=== PATIENT | female | born 1990 | race Caucasian/White ===

== ENCOUNTER 2019-12-11 19:34 | Emergency (ER) | payer OTHER ==
--- OUTSIDE RECORDS SUMMARY | 2019-12-11 19:36 | XMS REPORT ---
:1990 [facility] [address] [place] [address] Dr. Grant [address] [place] [id number] Care Team Providers Name Role Phone BHASKARROSAVALERIO HarperMADONNA Unavailable Unavailable Problems This patient has no known problems. Allergies, Adverse Reactions, Alerts This patient has no known allergies or adverse reactions. Medications This patient has no known medications. Results Test Description Test Time Test Comments Text Results Atomic Results Result Comments BLOOD CULTURE, [facility] 2017-01-21 19:31:00 Test Item Value Reference Range Comments CULTURE (BEAKER) (test [id number]) No acid-fast bacilli isolated in 42 days [facility], [facility] [id number] 19:31:00 Test Item Value Reference Range Comments CULTURE (BEAKER) (test No acid-fast bacilli isolated [id number]) in 42 days
--- NOTE | 2019-12-11 20:16 | ER ---
Nurse's Notes [facility] Name: María Sosa Age: 29 yrs Sex: Female : 1990 Arrival Date: 12/11/2019 Time: 19:37 Bed 19 Private MD: Diagnosis: Periapical abscess without sinus Presentation: 12/11 19:45 Presenting complaint: Patient states: left lower jaw swollen for 2 days. Pain started dm5 today. Pt states history of teeth abscesses. Transition of care: patient was not received from another setting of care. Onset of symptoms was December 09, 2019. Risk Assessment: Do you want to hurt yourself or someone else? Patient reports no desire to harm self or others. Initial Sepsis Screen: Does the patient meet any 2 criteria? HR > 90 bpm. No. Patient's initial sepsis screen is negative. Does the patient have a suspected source of infection? Yes: Other: tooth. Care prior to arrival: None. 19:45 Method Of Arrival: Ambulatory dm5 19:45 Acuity: KAYLAH 4 dm5 Triage Assessment: 20:08 EENT: Reports Tooathache. 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 - Social history:: Smoking status: Patient reports the use of cigarette tobacco products. - Ebola Screening: : Patient negative for fever greater than or equal to 101.5 degrees Fahrenheit, and additional compatible Ebola Virus Disease symptoms Patient denies exposure to infectious person. Screenin:07 Abuse screen: Denies threats or abuse. Denies injuries from another. Nutritional screening: No deficits noted. Tuberculosis screening: No symptoms or risk factors identified. Fall Risk None identified. Assessment: 20:02 General: Appears in no apparent distress. Behavior is calm, cooperative, appropriate for age. Pain: Complains of pain in Tooth abscess. Neuro: Level of Consciousness is awake, alert, obeys commands, Oriented to person, place, time, situation, Appropriate for age. Cardiovascular: Capillary refill < 3 seconds. Respiratory: Airway is patent Respiratory effort is even, unlabored, Respiratory pattern is regular, symmetrical. GI: Abdomen is flat, non-distended. : No signs and/or symptoms were reported regarding the genitourinary system. EENT: Poor dentition noted. Derm: Skin is intact, is healthy with good turgor, Skin is pink, warm \T\ dry. normal. Musculoskeletal: Circulation, motion, and sensation intact. Vital Signs: 19:57 BP 118 / 75; Pulse 93; Resp 18; Temp 99.4; Pulse Ox 97% on R/A; Weight 43.09 kg; Height [facility] 5 ft. 4 in. (162.56 cm); 19:57 Body Mass Index 16.31 (43.09 kg, 162.56 cm) [facility] ED Course: 19:37 Patient arrived in ED. es 19:41 Enrrique Alfredo NP is PHCP. pm1 19:41 Sabino Bronson MD is Attending Physician. pm1 19:53 Triage completed. [facility] 19:57 Arm band placed on Patient placed in an exam room. [facility] 20:00 Trav Moffett is Primary Nurse. 20:08 Patient has correct armband on for positive identification. Bed in low position. Call light in reach. Side rails up X 1. Pulse ox on. NIBP on. 20:42 No provider procedures requiring assistance completed. Patient did not have IV access during this emergency room visit. Administered Medications: 20:31 Drug: Clindamycin 600 mg Route: IM; Site: right gluteus; 20:41 Follow up: Response: No adverse reaction 20:31 Drug: Tylenol #3 (300 mg-30 mg) 2 tabs Route: PO; 20:41 Follow up: Response: No adverse reaction; Pain is decreased; RASS: Alert and Calm (0) Outcome: 20:16 Discharge ordered by . pm1 20:42 Discharged to home ambulatory, with friend. 20:42 Condition: stable 20:42 Discharge instructions given to patient, friend, Instructed on discharge instructions, follow up and referral plans. no drinking with medication, no driving heavy equipment, medication usage, POC Demonstrated understanding of instructions, follow-up care, medications, POC Prescriptions given X 2. 20:42 Patient left the ED. Signatures: Valerie Frances, RN RN dm5 Pauline Phillips Patrick, SWEEPER OPERATOR HIGHWAYS SWEEPER OPERATOR HIGHWAYS pm1 Trav Moffett wh
--- NOTE | 2019-12-11 20:16 | EDPHYS ---
Physician Documentation [facility] Name: María Sosa Age: 29 yrs Sex: Female : 1990 Arrival Date: 12/11/2019 Time: 19:37 Bed 19 Private MD: ED Physician Sabino Bronson HPI: 12/11 20:13 This 29 yrs old Female presents to ER via Ambulatory with complaints of pm1 Toothache. 20:13 The patient presents with swelling. The problem is located in the left side of jaw. pm1 Onset: The symptoms/episode began/occurred today. Duration: The symptoms are continuous. Modifying factors: The symptoms are alleviated by nothing, the symptoms are aggravated by nothing. Associated signs and symptoms: Pertinent negatives: chills, dysphagia, fever, inability to eat, vomiting. Severity of symptoms: in the emergency department the symptoms are actually worse. The patient has experienced similar episodes in the past, multiple times. The patient has not recently seen a physician. 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 - Social history:: Smoking status: Patient reports the use of cigarette tobacco products. - Ebola Screening: : Patient negative for fever greater than or equal to 101.5 degrees Fahrenheit, and additional compatible Ebola Virus Disease symptoms Patient denies exposure to infectious person. ROS: 20:13 Constitutional: Negative for fever, chills, and weight loss, Eyes: Negative for injury, pm1 pain, redness, and discharge, Neck: Negative for injury, pain, and swelling, Cardiovascular: Negative for chest pain, palpitations, and edema. 20:13 Respiratory: Negative for shortness of breath, cough, wheezing, and pleuritic chest pain, Abdomen/GI: Negative for abdominal pain, nausea, vomiting, diarrhea, and constipation, Back: Negative for injury and pain, Skin: Negative for injury, rash, and discoloration, Neuro: Negative for headache, weakness, numbness, tingling, and seizure. 20:13 ENT: Positive for dental pain, Negative for drainage from ear(s), ear pain, sore throat, difficulty swallowing, difficulty handling secretions, hoarseness. 20:13 All other systems are negative. Exam: 20:13 Constitutional: This is a well developed, well nourished patient who is awake, alert, pm1 and in no acute distress. Head/Face: Normocephalic, atraumatic. 20:13 Neck: Trachea midline, no thyromegaly or masses palpated, and no cervical lymphadenopathy. Supple, full range of motion without nuchal rigidity, or vertebral point tenderness. No Meningismus. Chest/axilla: Normal chest wall appearance and motion. Nontender with no deformity. No lesions are appreciated. Cardiovascular: Regular rate and rhythm with a normal S1 and S2. No gallops, murmurs, or rubs. Normal PMI, no JVD. No pulse deficits. Respiratory: Lungs have equal breath sounds bilaterally, clear to auscultation and percussion. No rales, rhonchi or wheezes noted. No increased work of breathing, no retractions or nasal flaring. Back: No spinal tenderness. No costovertebral tenderness. Full range of motion. Skin: Warm, dry with normal turgor. Normal color with no rashes, no lesions, and no evidence of cellulitis. MS/ Extremity: Pulses equal, no cyanosis. Neurovascular intact. Full, normal range of motion. 20:13 ENT: External ear(s): are unremarkable, Ear canal(s): are normal, TM's: Mouth: Lips: normal, Oral mucosa: normal, Gums: swollen, on the lower left second molar and lower left first molar, Dental exam: dental caries, that is moderate, diffusely, no trismus present. mild swelling to left lower jaw. 20:13 Neuro: Orientation: is normal, Motor: is normal, moves all fours. Vital Signs: 19:57 BP 118 / 75; Pulse 93; Resp 18; Temp 99.4; Pulse Ox 97% on R/A; Weight 43.09 kg; Height dm5 5 ft. 4 in. (162.56 cm); 19:57 Body Mass Index 16.31 (43.09 kg, 162.56 cm) dm5 MDM: 19:57 Patient medically screened. pm1 20:13 Data reviewed: vital signs. Data interpreted: Pulse oximetry: on room air is 97 %. pm1 Interpretation: normal. Counseling: I had a detailed discussion with the patient and/or guardian regarding: the historical points, exam findings, and any diagnostic results supporting the discharge/admit diagnosis, the need for outpatient follow up, for definitive care, a dentist, to return to the emergency department if symptoms worsen or persist or if there are any questions or concerns that arise at home. Administered Medications: 20:31 Drug: Clindamycin 600 mg Route: IM; Site: right gluteus; 20:41 Follow up: Response: No adverse reaction 20:31 Drug: Tylenol #3 (300 mg-30 mg) 2 tabs Route: PO; 20:41 Follow up: Response: No adverse reaction; Pain is decreased; RASS: Alert and Calm (0) Disposition: 12/12 10:04 Co-signature as Attending Physician, Sabino Bronson MD I agree with the assessment and waldo plan of care. Disposition: 12/11/19 20:16 Discharged to Home. Impression: Periapical abscess without sinus. - Condition is Stable. - Discharge Instructions: Dental Abscess, Dental Pain, Diet and Dental Disease. - Prescriptions for Clindamycin HCl 300 mg Oral Capsule - take 1 capsule by ORAL route every 6 hours for 10 days; 40 capsule. Tylenol- Codeine #3 300-30 mg Oral Tablet - take 2 tablets by ORAL route every 6 hours As needed; 20 tablet. - Medication Reconciliation Form, Thank You Letter, Antibiotic Education, Prescription Opioid Use form. - Follow up: Emergency Department; When: As needed; Reason: Worsening of condition. Follow up: Private Physician; When: 2 - 3 days; Reason: Recheck today's complaints, Continuance of care, Re-evaluation by your physician. - Problem is new. - Symptoms have improved. Signatures: Valerie Frances, RN RN Sabino Roland MD MD cha Marinas, Patrick, SHAHEED ONCOLOGIST pm1 Trav Moffett Corrections: (The following items were deleted from the chart) 12/11 20:42 20:16 12/11/2019 20:16 Discharged to Home. Impression: Periapical abscess without wh sinus. Condition is Stable. Forms are Medication Reconciliation Form, Thank You Letter, Antibiotic Education, Prescription Opioid Use. Follow up: Emergency Department; When: As needed; Reason: Worsening of condition. Follow up: Private Physician; When: 2 - 3 days; Reason: Recheck today's complaints, Continuance of care, Re-evaluation by your physician. Problem is new. Symptoms have improved. pm1
[2019-12-11] MEDS ORDERED: CLINDAMYCIN IV 150 MG/ML (4 mL) VIAL ONE (20:29)
[2019-12-11] MEDS ORDERED: CODEINE 30MG/APAP 300MG TAB ONE (20:29)
[2019-12-11 21:09] VITALS: BP 118/75; TEMP 99.4; O2SAT 97
== END 2019-12-11 20:42 | disposition home or self-care (01) ==
LOC: ER 19:34
DX: K04.7 Periapical abscess without sinus (principal); Z21 Asymptomatic human immunodeficiency virus [HIV] infection status; Z72.0 Tobacco use; Z88.5 Allergy status to narcotic agent
CPT/HCPCS: 96372; 99283; S0077

== ENCOUNTER 2022-10-03 08:22 | Emergency (ER) | payer OTHER ==
--- OUTSIDE RECORDS SUMMARY | 2022-10-03 08:29 | XMS REPORT | Continuity of Care Document ---
:1990 Author Organization [facility] t Address [address] [place] [address] Care Team Providers Name Role Phone PCP, NO Primary Care Physician Unavailable Misha ALMANZA, Ericka Escobar Attending Clinician Unavailable Jeovany Mcgrath DO Attending Clinician Tony Baker MD Attending Clinician [phone] Teri Fried MD Attending Clinician CHRISTINA PANCHAL Attending Clinician Unavailable JOSSY KELLY Attending Clinician Unavailable JOLEEN CHAVEZ Attending Clinician Unavailable RYDER ALANIS Attending Clinician Unavailable MADONNA ESPINOZA Attending Clinician Unavailable Tony Baker MD Admitting Clinician [phone] TONY BAKER Admitting Clinician Unavailable MADONNA ESPINOZA Admitting Clinician Unavailable Payers Payer Name Policy Type Policy Number Effective Date Expiration Date S ource Problems Condition Condition Condition Status Onset Resolution Last Treating Co mments Source Name Details Category Date Date Treatment Clinician Date PCP PCP Disease Recurre Univers (pneumocys (pneumocys nce 06-26 it y of tis tis 00:00: [place] jiroveci jiroveci 00 Medica l pneumonia) pneumonia) Br anch E46 E46 Disease Active Univers Unspecifie Unspecifie 06-26 it y of d severe d severe 00:00: [place] protein-ca protein-ca 00 Me dical koko koko Branch malnutriti malnutriti on on COVID-19 COVID-19 Disease Active Unive rs 8 ity of 00:00: [place] 00 Medical Branch Acute Acute Disease Active Univers respirator respirator 06-26 it y of y failure y failure 00:00: [place]ita torres with with 00 Medical hypoxia hypoxia Branch Acute Acute Disease Active Univers respirator respirator 06-24 it y of y distress [place] distress [place] Abdominal Abdominal Disease [facility] 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 1-13 Ileana kes ciency ciency 00:00: Medical virus virus 00 Center infection) infection) Gastritis Gastritis Disease Active [facility] Fever Fever Disease [facility] Nodule of Nodule of Disease Active [facility] left lung left lung 1-09 [facility] 00[facility] Center Splenic Splenic Disease Active [facility] lesion lesion [facility] Papanicola Papanicola Disease Active 2015-11 U jerome ou smear ou smear 2-13 ity of of cervix of cervix 00:00: [place] s with low with low 00 Medica l grade grade Branch squamous squamous intraepith intraepith elial elial lesion lesion (LGSIL) (LGSIL) Lymphadeno Lymphadeno Disease Active 2015-11 U jerome rico, rico, 2-07 ity of inguinal inguinal 00:00: [place] 00 [facility] LSIL (low LSIL (low Disease Active Overview: Univers grade grade 2-05 Formattin ity of squamous squamous 00:00: g of this [place] as intraepith intraepith 00 note Me dical elial elial might be Branch lesion) on lesion) on different Pap smear Pap smear from the original. Refer to dyplasia Tubal Tubal Disease Active Overview: Univer s ligation ligation 12-20 Formattin ity of evaluation evaluation 00:00: g of this note Medical might be Branch different from the original. 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 U nivers y y 1-16 ity of 00:00: [place] 00 Medical Branch Allergies, Adverse Reactions, Alerts Allergy Allergy Status Severity Reaction(s) Onset Inactive Treating Comm ents Source Name Type Date Date Clinician Tramadol Drug Active Severe PATIENT [facility]: "Had Medical 00 seizure Center with medicatio n" Doxycycl Propensi Active Rash Diffuse Unive rs ine ty to 2-15 skin ity of adverse 00:00: erruption [place] reaction 00 Medical s Branch DOXYCYCL DRUG Active Rash Univers INE INGREDI 2-15 ity of 00:00: [place] 00 Medical Branch Tramadol Propensi Active Other - See 2012-11 May have Univers ty to comments 0-10 developed ity o f adverse 00:00: a [place] reaction 00 generaliz Medic al s ed Branch seizure after taking it TRAMADOL DRUG Active Other-Cmnt 2012-11 Univ ers INGREDI 0-10 ity of 00:00: [place] 00 Medical Branch Social History Social Habit Start Date Stop Date Quantity Comments Source History of Cigarette [facility]oker [facility] use and 2022-06-27 2022-06-27 Smokeless tobacco Un iversity of exposure 00:00:00 00:00:00 non-user [facility] Tobacco Comment 2022-06-27 2022-06-27 smokes 3 cig/day Uni versity of 00:00:00 00:00:00 (smoking 3-4 [place] Medica l months) Branch Exposure to 2022-06-14 2022-06-24 Not sure University SARS-CoV-2 00:00:00 16:25:00 [facility] [place] [facility] (event) Branch Alcohol intake 2016-12-06 2016-12-[address] Delgado es 00:00:00 00:00:00 Medical Center Sex Assigned At [birth year] [facility] 00:00:00 00:00:00 [facility] Smoking Status Start Date Stop Date Source Unknown if ever smoked [facility] Light tobacco smoker [facility] Smokes tobacco daily 2022-06-27 00:00:00 Univers ity of [place] [facility] Medications Ordered Filled Start Stop Current Ordering Indication Dosage Frequency Signature Comments Components Source Medication Medication Date Date Medication? Clinician (SIG) Name Name darunavir/c Yes Take by Uni vers ob/emtri/te 07 mouth. ity of nof alaf 05:30: [place] (SYMTUZA 04 Medical ORAL) Branch nystatin Yes [id number] Take 5 mL Univers 100,000 05 by mouth 4 ity of unit/mL 00:00: (four) [place] suspension 00 times Medical daily. Branch Nystatin No [id number] Four Times C HRISTU (Nystatin 6-18 Daily S Liq) 14:50: Health 100,000 00 Unit/1 Ml ORAL.SUSP Acyclovir No 400mg 5 Times CHRI KARTHIK (Zovirax) 6-05 Daily S 400 Mg TAB 20:10: Health 00 Doxycycline No 100mg Twice A CH RISTU Monohydrate 6-05 Day S (Doxycyclin 20:10: Health e) 100 Mg 00 CAPSULE emtricitabi Yes 200mg Take 200 U nivers ne-tenofovi 1-24 mg by ity of r alafen 00:00: mouth [place] (DESCOVY) 00 daily. Medical 200-25 mg Take Branch Tab 200/25 mg tablet, one tab once daily (stop Truvada) darunavir-c Yes 1 po daily Univers obicistat 1-24 (stop ity of (PREZCOBIX) 00:00: [place] 800-150 00 Rey[place]) Medical mg-mg per Branch tablet ondansetron Yes DISSOLVE 1 Univers 4 mg 1-14 T PO Q 8 H ity of disintegrat 00:00: PRN [place] ing tablet Medical Branch citalopram 2015-11 Yes 20mg Take 1 Unive rs (CELEXA) 20 0-12 tablet by ity of mg tablet 00:00: mouth [place] 00 daily. Medical Branch Immunizations Ordered Immunization Filled Immunization Date Status Commen ts Source Name Name Pneumococcal 2016-12-[address] [facility] Polysaccharide 00:00:00 Medical Ce nter (Pneumovax) Pneumococcal 13 2016-09-05 Completed Universit y of Conjugate, PCV13 00:00:00 [facility] dical (Prevnar 13) Branch Influenza Virus 2016-09-05 Completed Universit y of Vaccine Quad IM 3+ 00:00:00 [facility] Branch Influenza Virus 2016-01-08 Completed Universit y of Vaccine Quad IM 00:00:[address] [facility] ical Multi-dose 6+ MO Branch Influenza Virus 2014-08-22 Completed Universit y of Vaccine (3+ yrs) 00:00:[address] [facility] dicid Branch Influenza Virus 2013-09-02 Completed Universit y of Vaccine (3+ yrs) 00:00:00 [facility] dicid Branch PPD (TB) 2012-06-25 Completed University of 00:00:00 [facility] TDAP (ADACEL) VACCINE 2012-06-25 Completed Uni versity of 00:00:00 [facility] Influenza Virus 2011-08-22 Completed Universit y of Vaccine 00:00:00 [facility] MMR 2011-08-19 Completed University of 00:00:00 [facility] Varicella 2011-08-19 Completed University of (varivax)(chicken 00:00:00 [facility] edical pox) Branch PPD (TB) 2011-05-07 Completed University of 00:00:00 [facility] Pneumococcal 2011-01-20 Completed University o f Polysaccharide, 00:00:[address] [facility] ical PPSV23 (PNEUMOVAX) Branch Vital Signs Vital Name Observation Time Observation Value Comments Source BP Diastolic 2022-04-28 20:00:00 69 mm[Hg] [facility] [employer] BP Systolic 2022-04-28 20:00:00 103 mm[Hg] [facility] [employer] Heart Rate 2022-04-28 20:00:00 92 /min [facility] BP Diastolic 2022-04-28 19:45:00 [facility] 2022-[facility]-28 19:45:00 104 mm[Hg] [facility] Heart Rate 2022-04-28 19:45:00 90 /min [facility] BP Diastolic 2022-04-28 19:30:00 66 mm[Hg] [facility] BP Systolic 2022-04-28 19:30:00 111 mm[Hg] [facility] Heart Rate 2022-04-28 19:30:00 91 /min [facility] BP Diastolic 2022-04-28 19:15:00 73 mm[Hg] [facility] BP Systolic 2022-04-28 19:15:00 102 mm[Hg] [facility] Heart Rate 2022-04-28 19:15:00 92 /min [facility] BP Diastolic 2022-04-28 19:00:00 67 mm[Hg] [facility] BP Systolic 2022-04-28 19:00:00 112 mm[Hg] [facility] Heart Rate 2022-04-28 19:00:00 87 /min [facility] BP Diastolic 2022-04-28 18:30:00 67 mm[Hg] [facility] BP Systolic 2022-04-28 18:30:00 117 mm[Hg] [facility] Heart Rate 2022-04-28 18:30:00 87 /min [facility] Respiratory rate 2022-04-28 18:30:00 16 /min [facility] BP Diastolic 2022-04-28 16:03:00 80 mm[Hg] [facility] BP Systolic 2022-04-28 16:03:00 107 mm[Hg] [facility] Heart Rate 2022-04-28 16:03:00 108 /min [facility] Respiratory rate 2022-04-28 16:03:00 24 /min [facility] Body Temperature 2022-04-28 16:03:00 98.3 [degF] [facility] BP Diastolic 2022-04-28 15:41:00 80 mm[Hg] [facility] BP Systolic 2022-04-28 15:41:00 107 mm[Hg] [facility] Heart Rate 2022-04-28 15:41:00 108 /min [facility] Respiratory rate 2022-04-28 15:41:00 24 /min [facility] Body Temperature 2022-04-28 15:41:00 98.3 [degF] [facility] Procedures Procedure Date / Time Performed Performing Clinician [facility] e COMPREHEN METABOLIC PANEL 2022-04-28 00:00:00 [facility] URINALYSIS AUTO W/SCOPE 2022-04-28 00:00:00 [facility] ASSAY OF LACTIC ACID 2022-04-28 00:00:[address] [facility] COMPLETE CBC W/AUTO DIFF 2022-04-28 00:00:00 [facility] WBC PROTHROMBIN TIME 2022-04-28 00:00:00 [facility] alth THROMBOPLASTIN TIME PARTIAL 2022-04-28 00:00:00 [facility] T CELL ABSOLUTE COUNT 2022-04-28 00:00:00 [facility] BLOOD CULTURE FOR BACTERIA 2022-04-28 00:00:00 [facility] CULTURE AEROBIC IDENTIFY 2022-04-28 00:00:00 [facility] URINE CULTURE/COLONY COUNT 2022-04-28 00:00:00 [facility] URINE BACTERIA CULTURE 2022-04-28 00:00:00 [facility] MICROBE SUSCEPTIBLE DREW 2022-04-28 00:00:00 [facility] THER/PROPH/DIAG IV INF INIT 2022-04-28 00:00:00 [facility] THER/PROPH/DIAG IV INF 2022-04-28 00:00:00 [facility] ADDON [place]/PROPH/DG ADDL SEQ IV INF 2022-04-28 00:00:00 [facility] EMERGENCY DEPT VISIT 2022-04-28 00:00:[address] [facility] Piperacillin/tazobactam 2022-04-28 00:00:00 [facility] Vancomycin hcl injection 2022-04-28 00:00:00 [facility] Normal saline solution 2022-04-28 00:00:00 [facility] infus Encounters Start End Encounter Admission Attending Care Care Encounter Source Date/Time Date/Time Type Type Clinicians Facility Department ID 2022-07-01 2022-07-01 Transition QUAN Cabral [id number] Univers 00:00:00 00:00:00 of Care Ericka GONZALEZ [id number] it y of [place] [id number] [place] s [id number] [facility] 403 Branch 2022-06-24 2022-06-28 [facility] Jeovany Mcgrath [facility] [id number] Univers 14:56:00 17:30:00 Encounter Tony Baker [facility]. 1.13.10 ity of [place] CLEAR 4.2.7.2.686 [facility] [id number] [address] ([facility]) 2022-06-24 2022-06-28 Inpatient X [facility] [id number] Univers 14:56:00 17:30:00 NOAH ity o f [facility] 2022-06-24 2022-06-28 Inpatient X [facility] [id number] Univers 14:56:00 17:30:00 NOAH ity o f [facility] 2022-06-27 2022-06-27 Surgery [facility] [id number] Univers 07:00:00 07:56:00 [facility] [id number] i ty of [place] CLEAR 4.2.7.2.686 [facility] [id number] [address] ([facility]) 2022-05-18 2022-05-18 Emergency ER MEGAN PANCHAL [id number] [facility] 13:07:00 13:52:00 [facility]RIST[facility] Health 2022-05-16 2022-05-16 Emergency ER JOSSY KELLY AA [id number] [facility] 12:40:00 13:29:00 78 S Health 2022-05-11 2022-05-11 Departed ER MEGAN CHAVEZ [id number] [facility] 13:47:00 14:58:00 Emergency JOLEEN [facility] 2022-04-28 2022-04-28 Departed ER MEGAN ALANIS [id number] [facility] 16:10:00 20:25:00 Emergency RYDER 26 [facility] Results Test Description Test Time Test Comments Results Result Comments Source Throat Streptococcus pyogenes antigen detection 2022-05-11 1 4:00:00 Test Item Value Reference Range Interpretation Comme nts Group A Streptococcus Screen (test code = 32787-4) NEGATIVE NEG ATIVE MEGAN BarbozaCD3+CD4+ Cells # [id number] 19:56:00 Test Item Value Reference Range Interpretation Comments Absolute CD4 Count (test code = 1 430-1386 16959-0) [facility] [id number] 18:19:00 Test Item Value Reference Range Interpretation Comments Urine Culture Indicated (test code = YES 8265-1) [facility] [id number] 18:19:00 Test Item Value Reference Range Interpretation Comments Urine Culture Reflexed YES, C&S INDICATED (test code = 8266-9) [facility] Spec Collect Meth [id number] 18:19:00 Test Item Value Reference Range Interpretation Comments Urine Collection Type (test code = VOIDED 41073-8) [facility] urine [id number] 18:19:00 Test Item Value Reference Range Interpretation Comments Urine Culture (test Staphylococcus code = 630-4) saprophyticus [facility] color [id number] 18:19:00 Test Item Value Reference Range Interpretation Comments Urine Color (test code = 5778-6) YELLOW [facility]Manual urine appearance [id number] 18:19:00 Test Item Value Reference Range Interpretation Comments Urine Appearance (test code = 5767-9) Cloudy [facility] pH measurement by test [id number] 18:19:00 Test Item Value Reference Range Interpretation Comments Urine pH (test code = 5803-2) 6.0 5.0-8.0 [facility]Sp Gr Ur [id number] 18:19:00 Test Item Value Reference Range Interpretation Comments Urine Specific [place] (test code = 1.018 1.005-1.030 5811-5) [facility] protein measurement by automated test strip (mass/volume) 2022-04-28 18:19:00 Test Item Value Reference Range Interpretation Comments Urine Protein (test code = 75055-5) 1+ NEGATIVE [facility] glucose measurement by test strip (mass/volume)2022-04-28 18:19:00 Test Item Value Reference Range Interpretation Comments Urine Glucose (UA) (test code = NEGATIVE NEGATIVE 5792-7) [facility] ketones measurement by test strip (mass/volume)2022-04-28 18:19:00 Test Item Value Reference Range Interpretation Comments Urine Ketones (test code = 5797-6) NEGATIVE NEGATIVE [facility] erythrocytes count by automated test strip (number/volume) 2022-04-28 18:19:00 Test Item Value Reference Range Interpretation Comments Urine Occult Blood (test code = NEGATIVE NEGATIVE 67538-7) [facility] nitrite detection by automated test [id number] 18:19:00 Test Item Value Reference Range Interpretation Comments Urine Nitrite (test code = 78782-6) POSITIVE NEGATIVE [facility] total bilirubin detection by test [id number] 18:19:00 Test Item Value Reference Range Interpretation Comments Urine Bilirubin (test code = 5770-3) NEGATIVE NEGATIVE [facility] urobilinogen measurement by test strip (mass/volume) 2022-04-28 18:19:00 Test Item Value Reference Range Interpretation Comments Urine Urobilinogen (test code = 1+ 0.2-1.0 85415-8) [facility] leukocyte esterase detection by [id number] 18:19:00 Test Item Value Reference Range Interpretation Comments Urine Leukocyte Esterase (test code = 1+ NEGATIVE 5799-2) [facility] ascorbate measurement by test strip (mass/volume)2022-04-28 18:19:00 Test Item Value Reference Range Interpretation Comments Urine Ascorbic Acid Level (test code Negative Negative = 5768-7) [facility] HealthAutomated urine sediment erythrocyte count by microscopy (number/high power field)2022-04-28 18:19:00 Test Item Value Reference Range Interpretation Comments Urine RBC (test code = 73338-0) 5 0-2 [facility] leukocytes count in urine sediment by microscopy high power field (number/area)2022-04-28 18:19:00 Test Item Value Reference Range Interpretation Comments Urine WBC (test code = 5821-4) 64 0-5 [facility]Urine sediment leukocyte clump count by microscopy (number/high power field)2022-04-28 18:19:00 Test Item Value Reference Range Interpretation Comments Urine WBC Clumps (test code = OCCASIONAL Negative 72276-6) [facility]ated squamous epithelial cells count in urine sediment by microscopy low power field (number/area)2022-04-28 18:19:00 Test Item Value Reference Range Interpretation Comments Urine Squamous Epithelial Cells (test 16 0-5 code = 26373-3) [facility] HealthBacteria detection in urine sediment by light microscopy 2022-04-28 18:19:00 Test Item Value Reference Range Interpretation Comments Urine Bacteria (test code = 51082-1) 3+ NONE SEEN [facility]Urine sediment mucus count by microscopy (number/low power field) 2022-04-28 18:19:00 Test Item Value Reference Range Interpretation Comments Urine Mucus (test code = 96889-4) 2+ NONE [facility] HealthSerum or plasma sodium measurement (moles/volume)2022-04-28 17:05:00 Test Item Value Reference Range Interpretation Comments Sodium Level (test code = 2951-2) 138 136-145 [facility]um or plasma potassium measurement (moles/volume)2022-04-28 17:05:00 Test Item Value Reference Range Interpretation Comments Potassium Level (test code = 2823-3) 3.6 3.5-5.1 [facility]Blood hemoglobin measurement (mass/volume)2022-04-28 17:05:00 Test Item Value Reference Range Interpretation Comments Hemoglobin (test code = 718-7) 10.8 10.9-14.3 [facility]um or plasma chloride measurement (moles/volume)2022-04-28 17:05:00 Test Item Value Reference Range Interpretation Comments Chloride Level (test code = 2075-0) 105 101-111 [facility] HealthCO2 [id number] 17:05:00 Test Item Value Reference Range Interpretation Comments Carbon Dioxide Level (test code = 2027-9) [facility]um or plasma anion gap determination (moles/volume)2022-04-28 17:05:00 Test Item Value Reference Range Interpretation Comments Anion Gap (test code = 79382-2) 7.0 6-14 [facility] or plasma urea nitrogen measurement (mass/volume)2022-04-28 17:05:00 Test Item Value Reference Range Interpretation Comments Blood Urea Nitrogen (test code = 06-17 3094-0) [facility]Automated blood hematocrit (volume fraction)2022-04-28 17:05:00 Test Item Value Reference Range Interpretation Comments Hematocrit (test code = 4544-3) 32.4 31.2-41.9 [facility] or plasma creatinine measurement (mass/volume)2022-04-28 17:05:00 Test Item Value Reference Range Interpretation Comments Creatinine (test code = 2160-0) 0.6 0.6-1.2 [facility] HealthGFR/BSA pred.black SerPlBld [id number] 17:05:00 Test Item Value Reference Range Interpretation Comments Estimated GFR () (test >60 code = 96142-5) [facility] HealthEGFR non- [id number] 17:05:00 Test Item Value Reference Range Interpretation Comments Estimated GFR (Non- >60 (test code = 71302-9) [facility]um or plasma glucose measurement (mass/volume)2022-04-28 17:05:00 Test Item Value Reference Range Interpretation Comments Glucose Level (test code = 2345-7) 72 70-110 [facility]um or plasma calcium measurement (mass/volume)2022-04-28 17:05:00 Test Item Value Reference Range Interpretation Comments Calcium Level (test code = 54780-2) 9.6 8.6-10.3 [facility] or plasma total bilirubin measurement (mass/volume) 2022-04-28 17:05:00 Test Item Value Reference Range Interpretation Comments Total Bilirubin (test code = 1975-2) 0.3 0.3-1.0 [facility] HealthSerum or plasma aspartate aminotransferase measurement (enzymatic activity/volume)2022-04-28 17:05:00 Test Item Value Reference Range Interpretation Comments Aspartate Amino Transf (AST/SGOT) (test 37 12-39 code = 1920-8) [facility] HealthSerum or plasma alanine aminotransferase measurement (enzymatic activity/volume)2022-04-28 17:05:00 Test Item Value Reference Range Interpretation Comments Alanine Aminotransferase (ALT/SGPT) 23 14-54 (test code = 1742-6) [facility] HealthAutomated erythrocyte mean corpuscular volume (MCV) measurement 2022-04-28 17:05:00 Test Item Value Reference Range Interpretation Comments Mean Corpuscular Volume (test code = 91.1 78-102 787-2) [facility] Health[facility]um or plasma protein measurement (mass/volume)2022-04-28 17:05:00 Test Item Value Reference Range Interpretation Comments Total Protein (test code = 2885-2) 7.9 6.4-8.9 [facility] HealthSerum or plasma albumin measurement (mass/volume)2022-04-28 17:05:00 Test Item Value Reference Range Interpretation Comments Albumin (test code = 1751-7) 4.0 3.5-5.7 [facility] HealthSerum or plasma alkaline phosphatase measurement (enzymatic activity/volume)2022-04-28 17:05:00 Test Item Value Reference Range Interpretation Comments Alkaline Phosphatase (test code = 77 34-104 6768-6) [facility] HealthLactate [id number] 17:05:00 Test Item Value Reference Range Interpretation Comments Lactic Acid Level (test code = 2524-7) 0.7 0.5-2.0 [facility] HealthBacterial blood [id number] 17:05:00 Test Item Value Reference Range Interpretation Comments Blood Culture (test No growth after 5 days code = 600-7) [facility] HealthAutomated erythrocyte mean corpuscular hemoglobin (mass per erythrocyte)2022-04-28 17:05:00 Test Item Value Reference Range Interpretation Comments Mean Corpuscular Hemoglobin (test code 30.4 26-34 = 785-6) [facility] HealthAutomated erythrocyte mean corpuscular hemoglobin concentration (MCHC) measurement (mass/volume)2022-04-28 17:05:00 Test Item Value Reference Range Interpretation Comments Mean Corpuscular Hemoglobin Concent 33.4 31-35 (test code = 786-4) [facility] HealthAutomated erythrocyte distribution width [id number] 17:05:00 Test Item Value Reference Range Interpretation Comments Red Cell Distribution Width (test code 12.6 12.5-14.5 = 788-0) [facility] HealthAutomated blood platelet count (count/volume)2022-04-28 17:05:00 Test Item Value Reference Range Interpretation Comments Platelet Count (test code = 777-3) 242 130-400 [facility] HealthAutomated blood platelet mean volume [id number] 17:05:00 Test Item Value Reference Range Interpretation Comments Mean Platelet Volume (test code = 9.0 7.4-10.4 51035-9) [facility] HealthAutomated blood neutrophil count as percentage of total [id number] 17:05:00 Test Item Value Reference Range Interpretation Comments Neutrophils (%) (Auto) (test code = 84.9 43.3-76.6 770-8) [facility] HealthAutomated blood lymphocyte count as percentage of total [id number] 17:05:00 Test Item Value Reference Range Interpretation Comments Lymphocytes (%) (Auto) (test code = 8.8 16-43.5 736-9) [facility] HealthAutomated blood monocyte count as percentage of total leukocytes 2022-04-28 17:05:00 Test Item Value Reference Range Interpretation Comments Monocytes (%) (Auto) (test code = 5.0 4.5-12.5 5905-5) [facility] HealthAutomated blood eosinophil count as percentage of total [id number] 17:05:00 Test Item Value Reference Range Interpretation Comments Eosinophils (%) (Auto) (test code = 1.2 0.6-7.9 713-8) [facility] HealthAutomated blood basophil count as percentage of total leukocytes 2022-04-28 17:05:00 Test Item Value Reference Range Interpretation Comments Basophils (%) (Auto) (test code = 0.1 0.2-1.4 706-2) [facility] HealthAutomated blood neutrophil count (number/volume)2022-04-28 17:05:00 Test Item Value Reference Range Interpretation Comments Neutrophils # (Auto) (test code = 3.00 1.8-7.8 751-8) [facility] HealthAutomated blood lymphocyte count (number/volume)2022-04-28 17:05:00 Test Item Value Reference Range Interpretation Comments Lymphocytes # (Auto) (test code = 0.30 1.0-3.0 731-0) [facility] HealthAutomated blood monocyte count (number/volume)2022-04-28 17:05:00 Test Item Value Reference Range Interpretation Comments Monocytes # (Auto) (test code = 742-7) 0.20 0.3-1.0 [facility] HealthAutomated blood eosinophil [id number] 17:05:00 Test Item Value Reference Range Interpretation Comments Eosinophils # (Auto) (test code = 0.00 0.0-0.5 711-2) [facility] HealthAutomated blood basophil count (number/volume)2022-04-28 17:05:00 Test Item Value Reference Range Interpretation Comments Basophils # (Auto) (test code = 704-7) 0.00 0.0-0.1 [facility] HealthProthrombin time (PT) in platelet poor [id number] 17:05:00 Test Item Value Reference Range Interpretation Comments Prothrombin Time (test code = 5902-2) 12.0 9.4-12.5 [facility] HealthINR in Platelet poor plasma by Coagulation [id number] 17:05:00 Test Item Value Reference Range Interpretation Comments Prothromb Time International Ratio 1.0 1.0-1.4 (test code = 6301-6) [facility] HealthPartial thromboplastin time (PTT) in platelet poor plasma 2022-04-28 17:05:00 Test Item Value Reference Range Interpretation Comments Activated Partial Thromboplast Time 27.7 25.1-36.5 (test code = 58533-4) [facility] HealthAutomated blood leukocyte count (number/volume)2022-04-28 17:05:00 Test Item Value Reference Range Interpretation Comments White Blood Count (test code = 6690-2) 3.6 3.6-11.2 [facility] HealthBlood erythrocytes automated count (number/volume)2022-04-28 17:05:00 Test Item Value Reference Range Interpretation Comments Red Blood Count (test code = 789-8) 3.55 3.63-4.92 [facility] HealthBLOOD CULTURE, AFB [id number] 19:31:00 Test Item Value Reference Range Interpretation Comments CULTURE (BEAKER) (test No acid-fast bacilli code = 1095) isolated in 42 days BLOOD CULTURE, AFB [id number] 19:31:00 Test Item Value Reference Range Interpretation Comments CULTURE (BEAKER) (test No acid-fast bacilli code = 1095) isolated in 42 days
--- NOTE | 2022-10-03 08:52 | EDPHYS ---
Physician Documentation [facility] Name: María Sosa Age: 31 yrs Sex: Female : 1990 Arrival Date: 10/03/2022 Time: 08:27 Bed 4 Private MD: ED Physician Kris Ch HPI: 10/03 08:42 This 31 yrs old Female presents to ER via Ambulatory with complaints of en Thrush. 08:42 Onset: The symptoms/episode began/occurred last week. Associated signs and symptoms: en The patient has no apparent associated signs or symptoms. Modifying factors: the patient symptoms are aggravated by swallowing. The patient has experienced similar episodes in the past. Patient has not seen her infectious disease doctor in [place] secondary to transportation issues. 31-year-old female with history of AIDS not on any antiretrovirals presents to ED with recurrent oral thrush. Patient reports she gets thrush twice a month and is on chronic fluconazole and nystatin mouthwash. She ran out. Last CD4 count was 7 when she was hospitalized in June. She does not have good continuity of care secondary to transportation issues to [place]. She denies fever, chills, nausea, vomiting. No chest pain, shortness of breath or dyspnea exertion. She has pain with swallowing but is handling her secretions.. 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 - Social history:: Smoking status: Patient reports the use of cigarette tobacco products, smokes one-half pack cigarettes per day. ROS: 08:42 Constitutional: Negative for fever, chills, and weight loss. en 08:42 Constitutional: Negative for body aches, chills, fatigue, fever, malaise, She is decreased but adequate p.o. intake secondary to dysphagia. She is able to handle liquids but solids are difficult secondary to pain . 08:42 Eyes: Negative for discharge. 08:42 ENT: Positive for Sore throat with painful swallowing, but able to swallow. 08:42 Neck: Positive for Lymphadenopathy. 08:42 Cardiovascular: Negative for chest pain. 08:42 Respiratory: Negative for cough, dyspnea on exertion, shortness of breath, wheezing. 08:42 Abdomen/GI: Negative for abdominal pain, nausea, vomiting, and diarrhea. 08:42 Skin: Negative for rash. 08:42 Neuro: Negative for acute changes. 08:42 All other systems are negative. Exam: 08:42 Constitutional: This is a well developed, well nourished patient who is awake, alert, en and in no acute distress. 08:42 Constitutional: The patient appears in no acute distress, alert, awake. 08:42 Eyes: Conjunctiva: normal, no exudate, no injection. 08:42 ENT: Significant oral thrush with pharyngeal erythema. Moist mucous membranes and handling secretions. Anterior cervical lymphadenopathy. 08:42 Neck: Lymph nodes: lymphadenopathy is appreciated, anterior cervical nodes, posterior cervical nodes. 08:42 Cardiovascular: Exam negative for gallop, murmur, rub, Rate: normal, Rhythm: regular, Pulses: no pulse deficits are appreciated, Heart sounds: normal. 08:42 Respiratory: Exam negative for chest tenderness, chest pain, rhonchi, shortness of breath, wheezing. 08:42 Abdomen/GI: Exam negative for acute changes, guarding, rebound tenderness, tenderness. 08:42 Back: CVA tenderness, is absent. 08:42 Musculoskeletal/extremity: Exam is negative for swelling, tenderness. 08:42 Skin: no rash present. 08:42 Neuro: Exam negative for acute changes, Orientation: is normal, no acute changes, to person, place \T\ time. Mentation: is normal, appropriate for stated age. 08:42 Psych: Exam negative for acute changes. Vital Signs: 08:37 BP 109 / 68; Pulse 95; Resp 16; Temp 98.7; Pulse Ox 97% ; Weight 43.09 kg; Height 5 ft. jh5 4 in. (162.56 cm); Pain 0/10; 08:37 Body Mass Index 16.31 (43.09 kg, 162.56 cm) jh5 MDM: 08:42 Differential diagnosis: Patient immunocompromised with known AIDS virus not on en antiretrovirals or prophylactic antibiotics. She has recurrent thrush several times a month. No fevers to suggest secondary bacterial infection. Data reviewed: vital signs, nurses notes. 08:52 Patient medically screened. en Administered Medications: No medications were administered Disposition: 15:46 Co-signature as Attending Physician, Kris Ch MD. rn Disposition Summary: 10/03/22 08:52 Discharge Ordered Location: Home en Problem: an acute exacerbation en Condition: Stable en Diagnosis - oral Thrush en Followup: en - With: Private Physician - When: 1 week - Reason: Re-evaluation by your physician Discharge Instructions: - Discharge Summary Sheet en - Oral Thrush, Adult, [id number] en Forms: - Medication Reconciliation Form en - Thank You Letter en - Antibiotic Education en - Prescription Opioid Use en Prescriptions: - fluconazole 100 mg Oral tablet - take 1 tablet by ORAL route 2 times per day for 14 days; 28 tablet; Refills: 0, en Product Selection Permitted - nystatin 100,000 unit/mL Oral suspension - take 6 milliliter by ORAL route 4 times per day for 14 days; 350 milliliter; en Refills: 0, Product Selection Permitted Signatures: Kris Ch MD MD rn SolomonJuanita RN RN jh5 Nurys Mejia PA PA en
--- NOTE | 2022-10-03 08:52 | ER ---
Nurse's Notes [facility] Name: María Sosa Age: 31 yrs Sex: Female : 1990 Arrival Date: 10/03/2022 Time: 08:27 Bed 4 Private MD: Diagnosis: oral Thrush Presentation: 10/03 08:37 Chief complaint: Patient states: i know i have oral thush, i get it a lot. I need [facility] fluconazole because nystatin doesn't work for me. Coronavirus screen: Vaccine status: Patient reports being unvaccinated. Client denies travel out of the [place] in the last 14 days. Ebola Screen: Patient negative for fever greater than or equal to 101.5 degrees Fahrenheit, and additional compatible Ebola Virus Disease symptoms Patient denies exposure to infectious person. Patient denies travel to an Ebola-affected area in the 21 days before illness onset. Initial Sepsis Screen: Does the patient meet any 2 criteria? No. Patient's initial sepsis screen is negative. Does the patient have a suspected source of infection? No. Patient's initial sepsis screen is negative. Risk Assessment: Do you want to hurt yourself or someone else? Patient reports no desire to harm self or others. 08:37 Method Of Arrival: Ambulatory [facility] 08:37 Acuity: KAYLAH 4 [facility] Triage Assessment: 08:40 General: Appears in no apparent distress. Behavior is calm, cooperative, appropriate [facility] for age. 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 - Social history:: Smoking status: Patient reports the use of cigarette tobacco products, smokes one-half pack cigarettes per day. Vital Signs: 08:37 BP 109 / 68; Pulse 95; Resp 16; Temp 98.7; Pulse Ox 97% ; Weight 43.09 kg; Height 5 ft. [facility] 4 in. (162.56 cm); Pain 0/10; 08:37 Body Mass Index 16.31 (43.09 kg, 162.56 cm) [facility] ED Course: 08:27 Patient arrived in ED. [facility] 08:37 Nurys Mejia PA is PHCP. en 08:37 Kris Ch MD is Attending Physician. en 08:40 Triage completed. jh5 08:40 Arm band placed on right wrist. 5 08:48 Dawn Macario, RN is Primary Nurse. db 09:19 No provider procedures requiring assistance completed. Patient did not have IV access ss during this emergency room visit. Administered Medications: No medications were administered Outcome: 08:52 Discharge ordered by MD. en 09:19 Discharged to home ambulatory. ss 09:19 Condition: good 09:19 Discharge instructions given to patient, Instructed on discharge instructions, follow up and referral plans. medication usage, Demonstrated understanding of instructions, follow-up care, medications, Prescriptions given X 2. 09:19 Patient left the ED. ss Signatures: Kary Wheeler, RN RN Kristina Garrett 4 Juanita Carbajal, RN RN 5 Nurys Mejia PA PA en Dawn Macario, RN RN db
[2022-10-03 09:38] VITALS: BP 109/68; TEMP 98.7; O2SAT 97
== END 2022-10-03 09:19 | disposition home or self-care (01) ==
LOC: ER 08:22
DX: B37.0 Candidal stomatitis (principal); B20 Human immunodeficiency virus [HIV] disease; F17.210 Nicotine dependence, cigarettes, uncomplicated; Z88.6 Allergy status to analgesic agent
CPT/HCPCS: 99282

== ENCOUNTER 2023-05-15 07:55 | Inpatient (IN) | payer OTHER ==
--- OUTSIDE RECORDS SUMMARY | 2023-05-15 08:06 | XMS REPORT | Continuity of Care Document ---
:1990 [facility] t Address [address] [place] [address] Care Team Providers Name Role Phone Edi Parker Primary Care Physician [phone] EDI LEDESMA Attending Clinician Unavailable Audrey Montgomery RN Attending Clinician Unavailable GABI BARAHONA Attending Clinician Unavailable Christian Bruner MD Attending Clinician Edis February Attending Clinician Gabi Barahona MD Attending Clinician [phone] Davin Anna MD Attending Clinician [phone] SHANAE DICKINSON Attending Clinician Unavailable FEMI ASHRAF Attending Clinician Unavailable Sarika Silveira PT Attending Clinician Unavailable Femi Ashraf MD Attending Clinician [facility] Attending Clinician Unavailable Edi Parker Attending Clinician MAGDALENO PLUMMER Attending Clinician Unavailable Brooke Vides DO Attending Clinician Magdaleno Plummer MD Attending Clinician Misha ALMANZA, Ericka Escobar Attending Clinician Unavailable Valentino Rojas MD Attending Clinician Jeovany Mcgrath DO Attending Clinician Sanket Baker MD Attending Clinician [phone] Ted Rincon MD, Teri Attending Clinician CHRISTINA PANCHAL Attending Clinician Unavailable JOSSY KELLY Attending Clinician Unavailable JOLEEN CHAVEZ Attending Clinician Unavailable RYDER ALANIS Attending Clinician Unavailable MADONNA ESPINOZA Attending Clinician Unavailable February Admitting Clinician Unavailable Edis GREENEFebruary Admitting Clinician Valentino Rojas MD Admitting Clinician VALENTINO ROJAS Admitting Clinician Unavailable Sanket Baker MD Admitting Clinician [phone] SANKET BAKER Admitting Clinician Unavailable MADONNA ESPINOZA Admitting Clinician Unavailable Payers Payer Name Policy Type Policy Number Effective Date Expiration Date Day aguila MEDICARE PART A [id number] 2021 \\T\\ B 00:00:00 MEDICAID OF [place] [id number] 2023 00:00:00 Problems Condition Condition Condition Status Onset Resolution Last Treating Co mments Source Name Details Category Date Date Treatment Clinician Date Physical Physical Disease Active Unive rs deconditio deconditio 6-10 it y of edna edna 00:00: [place] 00 [facility] Branch Diplopia Diplopia Disease Active Unive rs 6-09 ity of 00:00: [address] Branch Progressiv Progressiv Disease Recurre Univers e e nce 04-23 ity of multifocal multifocal 00:00[place] leukoencep leukoencep 00 Me dical halopathy halopathy Bran ch Acute Acute Disease Active Univers right-side right-side 04-23 it y of d muscle d muscle 00:00: [place] weakness weakness 00 Medica l Branch Functional Functional Disease Active U nivers gait gait 04-23 ity of abnormalit abnormalit 00:00[place] y y 00 Medical Branch Hemiplegia Hemiplegia Disease Active U nivers affecting affecting 5-31 ity of right right 00:00: [place] dominant dominant 00 Medica l side, side, Branch unspecifie unspecifie d d etiology, etiology, unspecifie unspecifie d d hemiplegia hemiplegia type type E44.0 E44.0 Disease Active Univers Moderate Moderate 3-07 ity of protein protein 00:00: [place] calorie calorie 00 Medical malnutriti malnutriti Br anch on on Wasting Wasting Disease Active Univers generalize generalize 3-06 it y of d d 00:00: [place] 00 Medical Branch AIDS AIDS Disease Recurre Univers wasting wasting nce 3-06 ity of syndrome syndrome 00:00: [place] 00 Medical Branch E46 E46 Disease Recurre Univers Unspecifie Unspecifie nce 803 it y of d severe d severe 00:00: [place] protein-ca protein-ca 00 Me dical kokorema sutherland Branch malnutriti malnutriti on on COVID-19 COVID-19 Disease Active Unive rs 8-03 ity of 00:00: [place] 00 Medical Branch Acute Acute Disease Active Univers respirator respirator 803 it y of y failure y failure 00:00: Laurita torres with with [facility] hypoxia hypoxia Branch PCP PCP Disease Recurre Univers (pneumocys (pneumocys nce 8 it y of tis tis 00:00: [place] jiroveci jiroveci 00 Medica l pneumonia) pneumonia) Br anch Acute Acute Disease Active Univers respirator respirator 8 it y of y distress y distress 00:00: [place] 00 [facility] Abdominal Abdominal Disease [facility] 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 Ileana kes ciency ciency 00:00: Medical virus virus 00 Center infection) infection) Gastritis Gastritis Disease Active [facility] Nodule of Nodule of Disease Active [facility] left lung left lung 1-09 [facility] 00:[facility] Center Splenic Splenic Disease Active [facility] lesion lesion [facility]- [facility] Fever Fever Disease Active [facility] Papanicola Papanicola Disease Active 2015-11 U jerome ou smear ou smear 2-13 ity of of cervix of cervix 00:[place] with low with low 00 Medica l grade grade Branch 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 ICD10 Diagnosis Term Team Manager Utility Human Human Disease Active Univers immunodefi immunodefi 4-17 it y of ciency ciency 00:00: [place] virus virus 00 Medical (HIV) (HIV) Branch disease disease AIDS AIDS Disease Recurre Univers (acquired (acquired nce 4-17 ity of immunodefi immunodefi 00:00: [place] ciency ciency 00 Medical syndrome), syndrome), Br anch CD4 <=200 CD4 <=200 Lipoatroph Lipoatroph Disease Active 2009-11 U nivers y y 1-16 ity of 00:00: [place] 00 Medical Branch Allergies, Adverse Reactions, Alerts Allergy Allergy Status Severity Reaction(s) Onset Inactive Treating Comm ents Source Name Type Date Date Clinician Tramadol Drug Active PATIENT [facility]: "Had Medical 00 seizure [...] Stop Date Quantity Comments Source History of tobacco 2014-11-24 Passive smoker Un iversity of use 00:00:00 [place] [facility] Branch History SDOH Social Unive rsity of Connections Get [place] Med ical Together Branch History SDOH Social Unive rsity of Connections [facility] History SDOH Social Unive rsity of Connections [place] [facility] Membership Branch History SDOH Social Unive rsity of Connections [place] [facility] Meetings Branch History SDOH 2023-05-05 2023-05-05 2 University o f Alcohol Frequency 00:00:00 00:00:00 [place] M edical Branch History SDOH 2023-05-05 2023-05-05 1 University o f Alcohol Std Drinks 00:00:00 00:00:00 [place] [facility] History SDOH 2023-05-05 2023-05-05 1 University o f Alcohol Binge 00:00:00 00:00:00 [place] Medic al Branch History SDOH Social 2023-05-05 2023-05-05 5 Unive rsity of Connections Phone 00:00:00 00:00:00 [place] M edical Branch History SDOH Social 2023-05-05 2023-05-05 7 Unive rsity of Connections Living 00:00:00 00:00:00 [place] [facility] Branch History SDOH 2023-05-05 2023-05-05 0 University o f Physical Activity 00:00:00 00:00:00 [place] M edical DPW Branch History SDOH 2023-05-05 2023-05-05 0 University o f Physical Activity 00:00:00 00:00:00 [place] M edical MPS Branch History SDOH 2023-05-05 2023-05-05 5 University o f Financial 00:00:00 00:00:00 [place] [facility] History SDOH Food 2023-05-05 2023-05-05 1 Univers ity of Worry 00:00:00 00:00:00 [place] [facility] History SDOH Food 2023-05-05 2023-05-05 1 Univers ity of Scarcity 00:00:00 00:00:00 [place] [facility] History SDOH 2023-05-05 2023-05-05 2 University o f Transport Med 00:00:00 00:00:00 [place] Medic al Branch History SDOH 2023-05-05 2023-05-05 2 University o f Transport Non-Med 00:00:00 00:00:00 [place] M edical Branch History SDOH 2023-05-05 2023-05-05 2 University o f Housing Unable to 00:00:00 00:00:00 [place] M edical Pay Branch History SDTX 2023-05-05 2023-05-05 1 University o f Housing Places 00:00:00 00:00:00 [place] Medi clyde Lived Branch History SDTX 2023-05-05 2023-05-05 2 University o f Housing Homeless 00:00:00 00:00:00 [place] Me dical Last Year Branch Exposure to 2023-03-15 2023-03-25 Not sure University SARS-CoV-2 (event) 00:00:00 13:25:00 [facility] Tobacco use and 2023-01-28 2023-01-28 Smokeless Universit y of exposure 00:00:00 00:00:00 tobacco non-user [facility] dical Branch Tobacco Comment 2022-06-27 2022-06-27 smokes 3 cig/day Uni versity of 00:00:00 00:00:00 (smoking 3-4 [place] Medica l months) Branch Alcohol intake 2016-12-06 2016-12-[address] Delgado es 00:00:00 00:00:00 [facility] Sex Assigned At [address] [facility] kes 00:00:00 00:00:00 [facility] Smoking Status Start Date Stop Date Source Light tobacco smoker [facility] Unknown if ever smoked [employer] Smokes tobacco daily 2023-01-28 00:00:00 Univers ity of [facility] Medications Ordered Filled Start Stop Current Ordering Indication Dosage Frequency Signature Comments Components Source Medication Medication Date Date Medication? Clinician (SIG) Name Name damian Yes [id number] 250mg Take 1 Univers n 6-16 tablet by ity of (ZITHROMAX 00:00: mouth in [place] as Z-JOANNA) 250 00 the Medical mg tablet morning. Branch proMETHazin 2022-0 Yes [id number] 12.5mg Take 1 Univers e 12.5 mg 6-16 tablet by ity o f tablet 00:00: mouth [place] 00 every 4 Medical (four) Branch hours as needed for Nausea and Vomiting (N/V). sulfamethox 2022-0 Yes [id number] 1{tbl} Take 1 Univers azole-trime 6-16 tablet by ity of thoprim 00:00: mouth in [place] 800-160 mg 00 the Medical per tablet morning. Bran h bictegrav-e 2022-0 Yes [id number] 1{tbl} Take 1 Univers mtricit-ten 6-16 tablet by ity of ofov ala 00:00: mouth in [place] 50-200-25 00 the Medical mg tablet morning. Branch ethambutoL 2022-0 Yes [id number] 600mg Take 6 Univers 100 mg 6-16 tablets by ity of tablet 00:00: mouth in [place] 00 the Medical morning. Branch fluconazole 2022-0 Yes [id number] 100mg Take 1 Univers 100 mg 6-16 tablet by ity of tablet 00:00: mouth in [place] 00 the Medical morning. Branch azithromyci 2022-0 Yes [id number] 250mg Take 1 Univers n 6-16 tablet by ity of (ZITHROMAX 00:00: mouth in [facility] as Z-JOANNA) 250 00 the Medical mg tablet morning. Branch proMETHazin 2022-0 Yes [id number] 12.5mg Take 1 Univers e 12.5 mg 6-16 tablet by ity o f tablet 00:00: mouth [place] 00 every 4 Medical (four) Branch hours as needed for Nausea and Vomiting (N/V). sulfamethox 2022-0 Yes [id number] 1{tbl} Take 1 Univers azole-trime 6-16 tablet by ity of thoprim 00:00: mouth in [place] 800-160 mg 00 the Medical per tablet morning. Bran h bictegrav-e 2022-0 Yes [id number] 1{tbl} Take 1 Univers mtricit-ten 6-16 tablet by ity of ofov ala 00:00: mouth in [place] 50-200-25 00 the Medical mg tablet morning. Branch ethambutoL 2022-0 Yes [id number] 600mg Take 6 Univers 100 mg 6-16 tablets by ity of tablet 00:00: mouth in [place] 00 the Medical morning. Branch fluconazole 2022-0 Yes [id number] 100mg Take 1 Univers 100 mg 6-16 tablet by ity of tablet 00:00: mouth in [place] 00 the Medical morning. Branch azithromyci 2022-0 Yes [id number] 250mg Take 1 Univers n 6-16 tablet by ity of (ZITHROMAX 00:00: mouth in [facility] as Z-JOANNA) 250 00 the Medical mg tablet morning. Branch proMETHazin 2022-0 Yes [id number] 12.5mg Take 1 Univers e 12.5 mg 6-16 tablet by ity o f tablet 00:00: mouth [place] 00 every 4 Medical (four) Branch hours as needed for Nausea and Vomiting (N/V). sulfamethox 2022-0 Yes [id number] 1{tbl} Take 1 Univers azole-trime 6-16 tablet by ity of thoprim 00:00: mouth in [place] 800-160 mg 00 the Medical per tablet morning. Bran h bictegrav-e 2022-0 Yes [id number] 1{tbl} Take 1 Univers mtricit-ten 6-16 tablet by ity of ofov ala 00:00: mouth in [place] 50-200-25 00 the Medical mg tablet morning. Branch ethambutoL 2022-0 Yes [id number] 600mg Take 6 Univers 100 mg 6-16 tablets by ity of tablet 00:00: mouth in [place] 00 the Medical morning. Branch fluconazole 2022-0 Yes [id number] 100mg Take 1 Univers 100 mg 6-16 tablet by ity of tablet 00:00: mouth in [place] 00 the Medical morning. Branch bictegrav-e 2022-0 Yes 1{tbl} 1 tablet, Univers mtricit-ten 6-14 Oral, ity of ofov ala 14:00: DAILY, [place] (BIKTARVY) 00 First dose Med ical 50-200-25 on Fri Branch mg tablet 1 05/07/23 at tablet 0900, Until Discontinu ed, Routine proMETHazin 2023-0 Yes 12.5mg 12.5 mg, Univers e 05-05 Oral, ity of (PHENERGAN) 18:34: Q4HPRN, [place] as tablet 12.5 18 Starting Medi clyde mg on Mon Branch 05/05/23 at 1334, Until Discontinu ed, Routine, Nausea and Vomiting (N/V) fluconazole 2022- Yes 100mg 100 mg, U nivers (DIFLUCAN) 05-04 Oral, ity of tablet 100 14:00: 13:59 DAILY, 13 [place] mg 00 :00 doses, Medical First dose Branch on Fri05/04/23 at 0900, Last dose on Fri05/16/23 at 0900, MAUREEN
Re ason for Anti-Infec tive: Documented Infection< br>Documen isidro Infection Site: Other
O ther site: oropharyng eal
Dur ation of Therapy: 14 days gadobenate 2022- No [id number] .2mL/kg 6.36 mL Univers dimeglumine 05-04 (0.2 mL/kg i ty of (MULTIHANCE 06:00: 04:55 ?31.8 kg), [place] -10 mL) 00 :00 Intravenou Medica l injection s, ONCE, 1 Bran ch 6.36 mL dose, On Tiff 05/04/23 at 0100, Routine atazanavir 2022- No 300mg 300 mg, Un ankita (REYATAZ) 05-03 Oral, ity of capsule 300 15:15: 19:35 DAILY, [place] as mg 00 :26 First dose Medical on [facility] Branch 05/03/23 at 1015, Until Discontinu ed, MAUREEN riTONAvir 2022- No 100mg 100 mg, Uni vers (NORVIR) 05-03 Oral, ity of tablet 100 15:15: 19:35 DAILY, [place] mg 00 :26 First dose Medical on [facility] Branch 05/03/23 at 1015, Until Discontinu ed, MAUREEN emtricitabi 2022- No 1{tbl} 1 tablet, Univers ne-tenofovi 05-03 Oral, ity of r (TDF) 15:15: 19:35 DAILY, [place] (TRUVADA) 00 :26 First dose Medi clyde 200-300 mg on Sat Branch tablet 1 05/03/23 at tablet 1015, Until Discontinu ed, MAUREEN ethambutoL Yes 600mg 600 mg, Uni vers (MYAMBUTOL) 6-10 Oral, ity of tablet 600 14:00: DAILY, [place] mg 00 First dose Medical on [facility] Branch 05/03/23 at 0900, Until Discontinu ed, MAUREEN
Re ason for Anti-Infec tive: Documented Infection< br>Documen isidro Infection Site: Blood
D uration of Therapy: 14 days sulfamethox Yes 1{tbl} 1 tablet, Univers azole-trime - Oral, ity of thoprim 14:00: DAILY, [place] (BACTRIM 00 First dose Medic al DS) 800-160 on [facility] Branch mg per 05/03/23 at tablet 1 0900, tablet Until Discontinu ed, MAUREEN
Re ason for Anti-Infec tive: Empiric Non-Surgic al Prophylaxi s
Durat ion of therapy: 5 days
Sp ecific indication : PJP prophylaxi s enoxaparin Yes 40mg 40 mg, Unive rs (LOVENOX) 05-03 Subcutaneo ity of injection 14:00: [place], [place]ILY, [place] 40 mg 00 First dose Medical on [facility] 05/03/23 at 0900, Until Discontinu ed, Routine azithromyci 2022- Yes 250mg 250 mg, U nivers n -09 01-08 Oral, ity of (ZITHROMAX) 14:00: 13:59 DAILY, 90 [place] tablet 250 00 :00 doses, Medical mg First dose Branch on [facility] 05/03/23 at 0900, Last dose on Noa 07/31/23 at 0900, MAUREEN
Re ason for Anti-Infec tive: Documented Infection< br>Documen isidro Infection Site: Blood
D uration of Therapy: Other (see Comments) acetaminoph 2022- No 650mg 650 mg, U nivers en 05-03-10 Oral, ity of (TYLENOL) 05:15: 05:53 ONCE, 1 [place] tablet 650 00 :00 dose, On Medic al mg Sat Branch 05/03/23 at 0015, MAUREEN LORazepam 2022- No 1mg 1 mg, Slow U nivers (ATIVAN) 05-03 06-10 IV Push, ity of injection 1 04:55: 06:36 PRN - SEE [place] mg 35 :00 [facility] Medical NS, 1 Branch dose, Starting on Fri05/02/23 at 2355, Until Discontinu ed, Routine, Anxiety acetaminoph Yes 650mg 650 mg, Un ankita en 10 Oral, ity of (TYLENOL) 02:23: Q6HPRN, [place] tablet 650 52 Starting Medic al mg on Fri Branch 05/02/23 at 2123, Until Discontinu ed, Routine, Pain (scale 1-3) valACYclovi Yes [id number] 1 po TID x Univers r 1 gram 5-04 10 days ity of tablet 00:00: [facility] Branch proMETHazin Yes [id number] 12.5mg Take 1 Univers e 12.5 mg 5-04 tablet by ity o f tablet 00:00: mouth [place] 00 every 6 Medical (six) Branch hours as needed for Nausea and Vomiting (N/V). valACYclovi Yes [id number] 1 po TID x Univers r 1 gram 5-04 10 days ity of tablet 00:00: [facility] proMETHazin 0 Yes [id number] 12.5mg Take 1 Univers e 12.5 mg 5-04 tablet by ity o f tablet 00:00: mouth [place] 00 every 6 Medical (six) Branch hours as needed for Nausea and Vomiting (N/V). valACYclovi 0 Yes [id number] 1 po TID x Univers r 1 gram 5-04 10 days ity of tablet 00:00: [place] [facility] proMETHazin Yes [id number] 12.5mg Take 1 Univers e 12.5 mg 5-04 tablet by ity o f tablet 00:00: mouth [place] 00 every 6 Medical (six) Branch hours as needed for Nausea and Vomiting (N/V). proMETHazin 2022- No [id number] 12.5mg Take 1 Univers e 12.5 mg 03-27-16 tablet by ity of tablet 00:00: 00:00 mouth [place] 00 :00 every 6 Medical (six) Branch hours as needed for Nausea and Vomiting (N/V). valACYclovi 2022- No [id number] 1 po TID x Univers r 1 gram - 06-09 10 days ity of tablet 00:00: 00:00 [place] 00 :00 Medical Branch ethambutoL 2022-0 Yes [id number] Take one Univers 400 mg 5-02 and a half ity of tablet 00:00: tablets once daily Medical (600 mg Branch total daily dose) azithromyci 2022-0 Yes [id number] Take U nivers n 5-02 tablet ity of (ZITHROMAX 00:00: [place] daily [place] Z-JOANNA) 250 00 Medical mg tablet Branch sulfamethox 0 Yes [id number] 1{tbl} Take 1 Univers azole-trime 5-02 tablet by ity of thoprim 00:00: mouth in [place] 800-160 mg 00 the Medical per tablet morning. Branc h ethambutoL 2022-0 Yes [id number] Take one Univers 400 mg 5-02 and a half ity of tablet 00:00: tablets [place] 00 once daily Medical (600 mg Branch total daily dose) azithromyci 2022-0 Yes [id number] Take U nivers n 5-02 tablet ity of (ZITHROMAX 00:00: once daily [place] Z-JOANNA) 250 00 Medical mg tablet Branch sulfamethox 2022-0 Yes [id number] 1{tbl} Take 1 Univers azole-trime 5-02 tablet by ity of thoprim 00:00: mouth in [place] 800-160 mg 00 the Medical per tablet morning. Branc h ethambutoL 2022-0 Yes [id number] Take one Univers 400 mg 5-02 and a half ity of tablet 00:00: tablets once daily Medical (600 mg Branch total daily dose) azithromyci 2022-0 Yes [id number] Take U nivers n 5-02 tablet ity of (ZITHROMAX 00:00: once daily [place] Z-JOANNA) 250 00 Medical mg tablet Branch sulfamethox 2022-0 Yes [id number] 1{tbl} Take 1 Univers azole-trime 5-02 tablet by ity of thoprim 00:00: mouth in [place] 800-160 mg 00 the Medical per tablet morning. [facility] azithromyci 2022-0 2023- No [id number] Take Univers n 5-02 -16 tablet ity of (ZITHROMAX 00:00: 00:00 once daily [place] Z-JOANNA) 250 00 :00 Medical mg tablet Branch sulfamethox 2022-0 3- No [id number] 1{tbl} Take 1 Univers azole-trime 5-02 -16 tablet by it y of thoprim 00:00: 00:00 mouth in [place] 800-160 mg 00 :00 the Medical per tablet morning. [facility] ethambutoL 0 3- No [id number] Take one Univers 400 mg 5-02 05-02 and a half ity of tablet 00:00: 00:00 tablets [place] 00 :00 once daily Medical (600 mg Branch total daily dose) atazanavir 2022-0 Yes [id number] 300mg Take 1 Univers 300 mg 3-11 capsule by ity of capsule 00:00: mouth in [place] 00 the Medical morning. Branch emtricitabi 2022-0 Yes [id number] 1{tbl} Take 1 Univers ne-tenofovi 3-11 tablet by ity of r, TDF, 00:00: mouth in [place] 200-300 mg 00 the Medical tablet morning. Branch fluconazole 3-0 Yes [id number] 200mg Take 1 Univers 200 mg 3-11 tablet by ity of tablet 00:00: mouth in [place] 00 the Medical morning. Branch riTONAvir 2022-0 Yes [id number] 100mg Take 1 U nivers 100 mg 3-11 tablet by ity of tablet 00:00: mouth in [place] 00 the Medical morning. Branch sulfamethox 2022-0 Yes [id number] 1{tbl} Take 1 Univers azole-trime 3-11 tablet by ity of thoprim 00:00: mouth in [place] 800-160 mg 00 the Medical per tablet morning. [facility] atazanavir 2022-0 Yes [id number] 300mg Take 1 Univers 300 mg 3-11 capsule by ity of capsule 00:00: mouth in [place] 00 the Medical morning. Branch emtricitabi 2022-0 Yes [id number] 1{tbl} Take 1 Univers ne-tenofovi 3-11 tablet by ity of r, TDF, 00:00: mouth in [place] 200-300 mg 00 the Medical tablet morning. Branch fluconazole 3-0 Yes [id number] 200mg Take 1 Univers 200 mg 3-11 tablet by ity of tablet 00:00: mouth in [place] 00 the Medical morning. Branch riTONAvir 2022-0 Yes [id number] 100mg Take 1 U nivers 100 mg 3-11 tablet by ity of tablet 00:00: mouth in [place] 00 the Medical morning. Branch sulfamethox 2022-0 Yes [id number] 1{tbl} Take 1 Univers azole-trime 3-11 tablet by ity of thoprim 00:00: mouth in [place] 800-160 mg 00 the Medical per tablet morning. Bran h atazanavir 2022-0 Yes [id number] 300mg Take 1 Univers 300 mg 3-11 capsule by ity of capsule 00:00: mouth in [place] 00 the Medical morning. Branch emtricitabi 2022-0 Yes [id number] 1{tbl} Take 1 Univers ne-tenofovi 3-11 tablet by ity of r, TDF, 00:00: mouth in [place] 200-300 mg 00 the Medical tablet morning. Branch fluconazole 2022-0 Yes [id number] 200mg Take 1 Univers 200 mg 3-11 tablet by ity of tablet 00:00: mouth in [place] 00 the Medical morning. Branch riTONAvir 2022-0 Yes [id number] 100mg Take 1 U nivers 100 mg 3-11 tablet by ity of tablet 00:00: mouth in [place] 00 the Medical morning. Branch sulfamethox 3-0 Yes [id number] 1{tbl} Take 1 Univers azole-trime 3-11 tablet by ity of thoprim 00:00: mouth in [place] 800-160 mg 00 the Medical per tablet morning. Bran h atazanavir 3-0 Yes [id number] 300mg Take 1 Univers 300 mg 3-11 capsule by ity of capsule 00:00: mouth in [place] 00 the Medical morning. Branch emtricitabi 3-0 Yes [id number] 1{tbl} Take 1 Univers ne-tenofovi 3-11 tablet by ity of r, TDF, 00:00: mouth in [place] 200-300 mg 00 the Medical tablet morning. Branch fluconazole 2022-0 Yes [id number] 200mg Take 1 Univers 200 mg 3-11 tablet by ity of tablet 00:00: mouth in [place] 00 the Medical morning. Branch riTONAvir 2022-0 Yes [id number] 100mg Take 1 U nivers 100 mg 3-11 tablet by ity of tablet 00:00: mouth in [place] 00 the Medical morning. Branch sulfamethox 2022-0 Yes [id number] 1{tbl} Take 1 Univers azole-trime 3-11 tablet by ity of thoprim 00:00: mouth in [place] 800-160 mg 00 the Medical per tablet morning. Bran h atazanavir 2022-0 Yes [id number] 300mg Take 1 Univers 300 mg 3-11 capsule by ity of capsule 00:00: mouth in [place] 00 the Medical morning. Branch emtricitabi 2022-0 Yes [id number] 1{tbl} Take 1 Univers ne-tenofovi 3-11 tablet by ity of r, TDF, 00:00: mouth in [place] 200-300 mg 00 the Medical tablet morning. Branch fluconazole 2022-0 Yes [id number] 200mg Take 1 Univers 200 mg 3-11 tablet by ity of tablet 00:00: mouth in [place] 00 the Medical morning. Branch riTONAvir 2022-0 Yes [id number] 100mg Take 1 U nivers 100 mg 3-11 tablet by ity of tablet 00:00: mouth in [place] 00 the Medical morning. Branch sulfamethox 2022-0 Yes [id number] 1{tbl} Take 1 Univers azole-trime 3-11 tablet by ity of thoprim 00:00: mouth in [place] 800-160 mg 00 the Medical per tablet morning. Bran h atazanavir 3-0 Yes [id number] 300mg Take 1 Univers 300 mg 3-11 capsule by ity of capsule 00:00: mouth in [place] 00 the Medical morning. Branch emtricitabi 2022-0 Yes [id number] 1{tbl} Take 1 Univers ne-tenofovi 3-11 tablet by ity of r, TDF, 00:00: mouth in [place] 200-300 mg 00 the Medical tablet morning. Branch fluconazole 2023-0 Yes [id number] 200mg Take 1 Univers 200 mg 3-11 tablet by ity of tablet 00:00: mouth in [place] 00 the Medical morning. Branch riTONAvir 3-0 Yes [id number] 100mg Take 1 U nivers 100 mg 3-11 tablet by ity of tablet 00:00: mouth in [place] 00 the Medical morning. Branch sulfamethox 3-0 Yes [id number] 1{tbl} Take 1 Univers azole-trime 3-11 tablet by ity of thoprim 00:00: mouth in [place] 800-160 mg 00 the Medical per tablet morning. [facility] h atazanavir 3-0 Yes [id number] 300mg Take 1 Univers 300 mg 3-11 capsule by ity of capsule 00:00: mouth in [place] 00 the Medical morning. Branch emtricitabi 3-0 Yes [id number] 1{tbl} Take 1 Univers ne-tenofovi 3-11 tablet by ity of r, TDF, 00:00: mouth in [place] 200-300 mg 00 the Medical tablet morning. Branch fluconazole 3-0 Yes [id number] 200mg Take 1 [facility] 200 mg 3-11 tablet by ity of tablet 00:00: mouth in [place] 00 the Medical morning. Branch riTONAvir 3-0 Yes [id number] 100mg Take 1 U nivers 100 mg 3-11 tablet by ity of tablet 00:00: mouth in [place] 00 the Medical morning. Branch sulfamethox 3-0 Yes [id number] 1{tbl} Take 1 Univers azole-trime 3-11 tablet by ity of thoprim 00:00: mouth in [place] 800-160 mg 00 the Medical per tablet morning. [facility] h atazanavir 3-0 Yes [id number] 300mg Take 1 [facility] 300 mg 3-11 capsule by ity of capsule 00:00: mouth in [place] 00 the Medical morning. Branch emtricitabi 3-0 Yes [id number] 1{tbl} Take 1 Univers ne-tenofovi 3-11 tablet by ity of r, TDF, 00:00: mouth in [place] 200-300 mg 00 the Medical tablet morning. Branch fluconazole 3-0 Yes [id number] 200mg Take 1 [facility] 200 mg 3-11 tablet by ity of tablet 00:00: mouth in [place] 00 the Medical morning. Branch riTONAvir 2023-0 Yes [id number] 100mg Take 1 U nivers 100 mg 3-11 tablet by ity of tablet 00:00: mouth in [place] 00 the Medical morning. Branch sulfamethox 3-0 Yes [id number] 1{tbl} Take 1 Univers azole-trime 3-11 tablet by ity of thoprim 00:00: mouth in [place] 800-160 mg 00 the Medical per tablet morning. [facility] atazanavir 3-0 Yes [id number] 300mg Take 1 [facility] 300 mg 3-11 capsule by ity of capsule 00:00: mouth in [place] 00 the Medical morning. Branch emtricitabi 3-0 Yes [id number] 1{tbl} Take 1 Univers ne-tenofovi 3-11 tablet by ity of r, TDF, 00:00: mouth in [place] 200-300 mg 00 the Medical tablet morning. Branch fluconazole 3-0 Yes [id number] 200mg Take 1 [facility] 200 mg 3-11 tablet by ity of tablet 00:00: mouth in [place] 00 the Medical morning. Branch riTONAvir 2022-0 Yes [id number] 100mg Take 1 U nivers 100 mg 3-11 tablet by ity of tablet 00:00: mouth in [place] 00 the Medical morning. Branch sulfamethox 3-0 Yes [id number] 1{tbl} Take 1 Univers azole-trime 3-11 tablet by ity of thoprim 00:00: mouth in [place] 800-160 mg 00 the Medical per tablet morning. [facility] atazanavir 3-0 Yes [id number] 300mg Take 1 [facility] 300 mg 3-11 capsule by ity of capsule 00:00: mouth in [place] 00 the Medical morning. Branch emtricitabi 3-0 Yes [id number] 1{tbl} Take 1 Univers ne-tenofovi 3-11 tablet by ity of r, TDF, 00:00: mouth in [place] 200-300 mg 00 the Medical tablet morning. Branch fluconazole 3-0 Yes [id number] 200mg Take 1 [facility] 200 mg 3-11 tablet by ity of tablet 00:00: mouth in [place] 00 the Medical morning. Branch riTONAvir 2023-0 Yes [id number] 100mg Take 1 U nivers 100 mg 3-11 tablet by ity of tablet 00:00: mouth in [place] 00 the Medical morning. Branch atazanavir 2022-0 Yes [id number] 300mg Take 1 [facility] 300 mg 3-11 capsule by ity of capsule 00:00: mouth in [place] 00 the Medical morning. Branch emtricitabi 2022-0 Yes [id number] 1{tbl} Take 1 Univers ne-tenofovi 3-11 tablet by ity of r, TDF, 00:00: mouth in [place] 200-300 mg 00 the Medical tablet morning. Branch fluconazole 2022-0 Yes [id number] 200mg Take 1 [facility] 200 mg 3-11 tablet by ity of tablet 00:00: mouth in [place] 00 the Medical morning. Branch riTONAvir 2022-0 Yes [id number] 100mg Take 1 U nivers 100 mg 3-11 tablet by ity of tablet 00:00: mouth in [place] 00 the Medical morning. Branch atazanavir 2022-0 Yes [id number] 300mg Take 1 [facility] 300 mg 3-11 capsule by ity of capsule 00:00: mouth in [place] 00 the Medical morning. Branch emtricitabi 2022-0 Yes [id number] 1{tbl} Take 1 Univers ne-tenofovi 3-11 tablet by ity of r, TDF, 00:00: mouth in [place] 200-300 mg 00 the Medical tablet morning. Branch fluconazole 2022-0 Yes [id number] 200mg Take 1 [facility] 200 mg 3-11 tablet by ity of tablet 00:00: mouth in [place] 00 the Medical morning. Branch riTONAvir 2022-0 Yes [id number] 100mg Take 1 U nivers 100 mg 3-11 tablet by ity of tablet 00:00: mouth in [place] 00 the Medical morning. Branch atazanavir 2022-0 2022- No [id number] 300mg Take 1 [facility] 300 mg 3-11 - capsule by ity of capsule 00:00: 00:00 mouth in [place] 00 :00 the Medical morning. Branch emtricitabi 3-0 2022- No [id number] 1{tbl} Take 1 Univers ne-tenofovi 3-11 06-09 tablet by it y of r, TDF, 00:00: 00:00 mouth in [place] 200-300 mg 00 :00 the Medical tablet morning. Branch fluconazole 3-0 2022- No [id number] 200mg Take 1 [facility] 200 mg 3-11 06-09 tablet by ity of tablet 00:00: 00:00 mouth in [place] 00 :00 the Medical morning. Branch riTONAvir 2022- No [id number] 100mg Take 1 [facility] 100 mg 02-01 tablet by ity of tablet 00:00: 00:00 mouth in [place] 00 :00 the Medical morning. Branch sulfamethox 2022- No [id number] 1{tbl} Take 1 Univers azole-trime 02-01 tablet by it y of thoprim 00:00: 00:00 mouth in [place] 800-160 mg 00 :00 the Medical per tablet morning. Branc h sulfamethox 2022- No [id number] 1{tbl} Take 1 [facility] azole-trime 02-01 tablet by it y of thoprim 00:00: 00:00 mouth in [place] 800-160 mg 00 :00 the Medical per tablet morning. Branc h KCL No 40meq 40 mEq, Univers (KLOR-CON 01-31 Oral, ity of M20) tablet 13:45: 14:16 ONCE, 1 [place] 40 mEq 00 :00 dose, On Medical Fri Branch 01/31/23 at 0745, Routine gadobenate No [id number] .2mL/kg 6.9 mL Univers dimeglumine 01-30 (0.2 mL/kg i ty of (MULTIHANCE 21:45: 21:45 ?34.5 kg), [place] -10 mL) 00 :00 Intravenou Medica l injection s, ONCE, 1 Bran ch 6.9 mL dose, On Noa 01/30/23 at 1545, Routine fluconazole No 200mg 200 mg, U nivers (DIFLUCAN) 01-29 Oral, ity of tablet 200 21:15: 13:59 DAILY, 5 [place] mg 00 :00 doses, Medical First dose Branch on Fri01/29/23 at 1515, Last dose on Fri02/02/23 at 0900, MAUREEN
Re ason for Anti-Infec tive: Documented Infection< br>Documen isidro Infection Site: Skin / Soft Tissue
Duration of Therapy: Other (see Comments) sulfamethox Yes 1{tbl} 1 tablet, [facility] azole-trime 01-28 Oral, ity of thoprim 20:00: DAILY, [place] (BACTRIM 00 First dose Medic al DS) 800-160 on Fri mg per 01/28/23 at tablet 1 1400, tablet Until Discontinu ed, MAUREEN
Re ason for Anti-Infec tive: Empiric Non-Surgic al Prophylaxi s
Durat ion of therapy: 5 days azithromyci 0 2022- No 1200mg 1,200 mg, [facility] n 01-28 03-21 Oral, ity of (ZITHROMAX) 19:51: 18:59 QWEEKLY, 2 [place] tablet 15 :00 doses, Medical 1,200 mg First dose Branc h on Fri01/28/23 at 1400, Last dose on Fri02/04/23 at 1400, Routine
Reason for Anti-Infec tive: Empiric Non-Surgic al Prophylaxi s
Durat ion of therapy: 5 days
Sp ecific indication : MAC prophylaxi s atazanavir Yes 300mg 300 mg, Uni vers (REYATAZ) 01-28 Oral, ity of capsule 300 19:45: DAILY, [place] 00 First dose Medical on Fri01/28/23 at 1345, Until Discontinu ed, MAUREEN riTONAvir Yes 100mg 100 mg, [facility] [place] ers (NORVIR) 01-28 Oral, ity of tablet 100 19:45: DAILY, [place] mg 00 First dose Medical on Fri01/28/23 at 1345, Until Discontinu ed, MAUREEN emtricitabi Yes 1{tbl} 1 tablet, [facility] ne-tenofovi 01-28 Oral, ity of r (TDF) 19:45: DAILY, [place] (TRUVADA) 00 First dose Medi clyde 200-300 mg on Fri tablet 1 01/28/23 at tablet 1345, Until Discontinu ed, MAUREEN lactated Yes 1000mL at 50 Univer s ringers IV 3-07 mL/hr, ity of infusion 02:30: 1,000 mL[place] 1,000 [place] 00 IV Medical Infusion, Branch CONTINUOUS , Starting on Fri01/27/23 at 2030, Until Discontinu ed, Routine docusate 0 Yes 100mg 100 mg, Unive rs (COLACE) 07 Oral, BID, ity o f capsule 100 02:00: First dose [place] mg 00 on Mon Medical 01/27/23 at Branch 2000, Until Discontinu ed, Routine heparin 0 Yes 5000U 5,000 Univers (porcine) 01-28 Units, ity of injection 02:00: [place] 5,000 Units 00 us, Q12H, Med ical First dose Branch on Fri01/27/23 at 2000, Until Discontinu ed, Routine nystatin 2022- No 10mL 1,000,000 Uni vers (NILSTAT) 01-28 03-08 Units (10 ity of 100,000 00:45: 21:14 mL), Oral, [place] unit/mL 00 :27 QID, First Medica l suspension dose on Branch 1,000,000 [facility] 01/27/23 Units at 1845, Until Discontinu ed, MAUREEN acetaminoph Yes 650mg 650 mg, Un ankita en 01-28 Oral, ity of (TYLENOL) 00:30: Q6HPRN, [place] tablet 650 23 Starting Medic al mg on Fri [place] 01/27/23 at 1830, Until Discontinu ed, Routine, Pain (scale 1-3) darunavir/c 2022- No Take by Un ankita ob/emtri/te 01-27-06 mouth. ity o f nof alaf 15:45: 00:00 [place] (SYMTUZA 23 :00 Medical ORAL) Branch darunavir/c 2022- No Take by Un ankita ob/emtri/te 01-27-06 mouth. ity o f nof alaf 15:45: 00:00 [place] (SYMTUZA 23 :00 Medical ORAL) Branch darunavir/c 2022- No Take by Un ankita ob/emtri/te 01-27 03-06 mouth. ity o f nof alaf 15:45: 00:00 [place] (SYMTUZA 23 :00 Medical ORAL) Branch darunavir/c Yes Take by Uni vers ob/emtri/te 807 mouth. ity of nof alaf 05:30: [place] (SYMTUZA 04 Medical ORAL) Branch nystatin Yes [id number] Take 5 mL Univers 100,000 05 by mouth 4 ity of unit/mL 00:00: (four) [place] suspension 00 times Medical daily. Branch nystatin 2022- No [id number] Take 5 mL Univers 100,000 06-28-06 by mouth 4 ity o f unit/mL 00:00: 00:00 (four) [place] suspension 00 :00 times Medical daily. Branch nystatin 2022- No [id number] Take 5 mL Univers 100,000 06-28- by mouth 4 ity o f unit/mL 00:00: 00:00 (four) [place] suspension 00 :00 times Medical daily. Branch nystatin 2022- No [id number] Take 5 mL Univers 100,000 06-28- by mouth 4 ity o f unit/mL 00:00: 00:00 (four) [place] suspension 00 :00 times Medical daily. Branch Nystatin No [id number] Four Times C HRISTU (Nystatin 6-18 Daily [...] 00 [place]) Medical mg-mg per Branch tablet emtricitabi 2022- No 200mg Take 200 Univers ne-tenofovi 1-24 03-06 mg by ity of r alafen 00:00: 00:00 mouth [place] (DESCOVY) 00 :00 daily. Medical 200-25 mg Take Branch Tab 200/25 mg tablet, one tab once daily (stop Truvada) darunavir-c 2022- No 1 po daily Univers obicistat 12-17-06 (stop ity of (PREZCOBIX) 00:00: 00:00 [place] and [place] 800-150 00 :00 [place]) Medical mg-mg per Branch tablet emtricitabi 2022- No 200mg Take 200 Univers ne-tenofovi 12-17 03-06 mg by ity of r alafen 00:00: 00:00 mouth [place] (DESCOVY) 00 :00 daily. Medical 200-25 mg Take Branch Tab 200/25 mg tablet, one tab once daily (stop Truvada) darunavir-c 2022- No 1 po daily Univers obicistat 12-17-06 (stop ity of (PREZCOBIX) 00:00: 00:00 Nov[place] and [place] 800-150 00 :00 [place]) Medical mg-mg per Branch tablet emtricitabi 2022- No 200mg Take 200 Univers ne-tenofovi 12-17-06 mg by ity of r alafen 00:00: 00:00 mouth [place] (DESCOVY) 00 :00 daily. Medical 200-25 mg Take Branch Tab 200/25 mg tablet, one tab once daily (stop Truvada) darunavir-c 2022- No 1 po daily Univers obicistat 24 -06 (stop ity of (PREZCOBIX) 00:00: 00:00 Nov[place] and [place] 800-150 00 :00 [place]) Medical mg-mg per Branch tablet ondansetron Yes DISSOLVE 1 Univers 4 mg 1-14 T PO Q 8 H ity of disintegrat 00:00: PRN [place] ing tablet 00 Medical Branch ondansetron 2022- No DISSOLVE 1 Univers 4 mg 12-07-06 T PO Q 8 H ity of disintegrat 00:00: 00:00 PRN [place] ing tablet 00 :00 [facility] Branch ondansetron 2022- No DISSOLVE 1 Univers 4 mg 12-07-06 T PO Q 8 H ity of disintegrat 00:00: 00:00 PRN [place] ing tablet 00 :00 [facility] Branch ondansetron 2022- No DISSOLVE 1 Univers 4 mg 12-07- T PO Q 8 H ity of disintegrat 00:00: 00:00 PRN [place] ing tablet 00 :00 [facility] Branch citalopram 2015-11 Yes 20mg Take 1 Unive rs (CELEXA) 20 0-12 tablet by ity of mg tablet 00:00: mouth [place] 00 daily. [facility] Branch citalopram 2015-11- No 20mg Take 1 Univ ers (CELEXA) 20 0-12 03-06 tablet by it y of mg tablet 00:00: 00:00 mouth [place] 00 :00 daily. [facility] Branch citalopram 2015-11- No 20mg Take 1 Univ ers (CELEXA) 20 0-12 03-06 tablet by it y of mg tablet 00:00: 00:00 mouth [place] 00 :00 daily. [facility] Branch citalopram 2015-11- No 20mg Take 1 Univ ers (CELEXA) 20 0-12 03-06 tablet by it y of mg tablet 00:00: 00:00 mouth [place] 00 :00 daily. [facility] Immunizations Ordered Immunization Filled Immunization Date Status Commen ts Source Name Name Pneumococcal 2016-12-[address] [facility] Polysaccharide 00:00:00 Medical Ce nter (Pneumovax) Pneumococcal 2016-12-[address] [facility] Polysaccharide 00:00:00 Medical Ce nter (Pneumovax) Pneumococcal 13 2016-09-05 Completed Universit y of Conjugate, PCV13 00:00:00 [place] [facility] dical (Prevnar 13) Branch Influenza Virus 2016-09-05 Completed Universit y of Vaccine Quad IM 3+ 00:00:00 [facility] Branch Pneumococcal 13 2016-09-05 Completed Universit y of Conjugate, PCV13 00:00:00 [place] [facility] dical (Prevnar 13) Branch Influenza Virus 2016-09-05 Completed Universit y of Vaccine Quad IM 3+ 00:00:00 [facility] Branch Pneumococcal 13 2016-09-05 Completed Universit y of Conjugate, PCV13 00:00:00 [place] Me dical (Prevnar 13) Branch Influenza Virus 2016-09-05 Completed Universit y of Vaccine Quad IM 3+ 00:00:00 [facility] Branch Pneumococcal 13 2016-09-05 Completed Universit y of Conjugate, PCV13 00:00:00 [place] Me dical (Prevnar 13) Branch Influenza Virus 2016-09-05 Completed Universit y of Vaccine Quad IM 3+ 00:00:00 [facility] Branch Pneumococcal 13 2016-09-05 Completed Universit y of Conjugate, PCV13 00:00:00 [place] Me dical (Prevnar 13) Branch Influenza Virus 2016-09-05 Completed Universit y of Vaccine Quad IM 3+ 00:00:00 [facility] Pneumococcal 13 2016-09-05 Completed Universit y of Conjugate, PCV13 00:00:00 [place] Me dical (Prevnar 13) Branch Influenza Virus 2016-09-05 Completed Universit y of Vaccine Quad IM 3+ 00:00:00 [facility] Branch Pneumococcal 13 2016-09-05 Completed Universit y of Conjugate, PCV13 00:00:00 [place] Me dical (Prevnar 13) Branch Influenza Virus 2016-09-05 Completed Universit y of Vaccine Quad IM 3+ 00:00:00 [facility] Branch Pneumococcal 13 2016-09-05 Completed Universit y of Conjugate, PCV13 00:00:00 [place] Me dical (Prevnar 13) Branch Influenza Virus 2016-09-05 Completed Universit y of Vaccine Quad IM 3+ 00:00:00 [facility] Branch Pneumococcal 13 2016-09-05 Completed Universit y of Conjugate, PCV13 00:00:00 [place] Me dical (Prevnar 13) Branch Influenza Virus 2016-09-05 Completed Universit y of Vaccine Quad IM 3+ 00:00:00 [facility] Branch Pneumococcal 13 2016-09-05 Completed Universit y of Conjugate, PCV13 00:00:00 [place] Me dical (Prevnar 13) Branch Influenza Virus 2016-09-05 Completed Universit y of Vaccine Quad IM 3+ 00:00:00 [facility] Pneumococcal 13 2016-09-05 Completed Universit y of Conjugate, PCV13 00:00:00 [place] Me dical (Prevnar 13) Branch Influenza Virus 2016-09-05 Completed Universit y of Vaccine Quad IM 3+ 00:00:00 [facility] Branch Pneumococcal 13 2016-09-05 Completed Universit y of Conjugate, PCV13 00:00:00 [place] Me dical (Prevnar 13) Branch Influenza Virus 2016-09-05 Completed Universit y of Vaccine Quad IM 3+ 00:00:00 [facility] Pneumococcal 13 2016-09-05 Completed Universit y of Conjugate, PCV13 00:00:00 [place] [facility] dical (Prevnar 13) Branch Influenza Virus 2016-09-05 Completed Universit y of Vaccine Quad IM 3+ 00:00:00 [facility] Pneumococcal 13 2016-09-05 Completed Universit y of Conjugate, PCV13 00:00:00 [place] [facility] dical (Prevnar 13) Branch Influenza Virus 2016-09-05 Completed Universit y of Vaccine Quad IM 3+ 00:00:00 [facility] Pneumococcal 13 2016-09-05 Completed Universit y of Conjugate, PCV13 00:00:00 [place] [facility] dical (Prevnar 13) Branch Influenza Virus 2016-09-05 Completed Universit y of Vaccine Quad IM 3+ 00:00:00 [facility] Pneumococcal 13 2016-09-05 Completed Universit y of Conjugate, PCV13 00:00:00 [place] [facility] dical (Prevnar 13) Branch Influenza Virus 2016-09-05 Completed Universit y of Vaccine Quad IM 3+ 00:00:00 [facility] Pneumococcal 13 2016-09-05 Completed Universit y of Conjugate, PCV13 00:00:00 [place] [facility] dical (Prevnar 13) Branch Influenza Virus 2016-09-05 Completed Universit y of Vaccine Quad IM 3+ 00:00:00 [facility] Pneumococcal 13 2016-09-05 Completed Universit y of Conjugate, PCV13 00:00:00 [place] [facility] dical (Prevnar 13) Branch Influenza Virus 2016-09-05 Completed Universit y of Vaccine Quad IM 3+ 00:00:00 [facility] Pneumococcal 13 2016-09-05 Completed Universit y of Conjugate, PCV13 00:00:00 [place] [facility] dical (Prevnar 13) Branch Influenza Virus 2016-09-05 Completed Universit y of Vaccine Quad IM 3+ 00:00:00 [facility] Influenza Virus 2016-01-08 Completed Universit y of Vaccine Quad IM 00:00:00 [place] Med ical Multi-dose 6+ MO Branch Influenza Virus 2016-01-08 Completed Universit y of Vaccine Quad IM 00:00:00 [place] Med ical Multi-dose 6+ MO Branch Influenza Virus 2016-01-08 Completed Universit y of Vaccine Quad IM 00:00:00 [place] Med ical Multi-dose 6+ MO Branch Influenza Virus 2016-01-08 Completed Universit y of Vaccine Quad IM 00:00:00 [place] Med ical Multi-dose 6+ MO Branch Influenza Virus 2016-01-08 Completed Universit y of Vaccine Quad IM 00:00:00 [place] Med ical Multi-dose 6+ MO Branch Influenza Virus 2016-01-08 Completed Universit y of Vaccine Quad IM 00:00:00 [place] Med ical Multi-dose 6+ MO Branch Influenza Virus 2016-01-08 Completed Universit y of Vaccine Quad IM 00:00:00 [place] Med ical Multi-dose 6+ MO Branch Influenza Virus 2016-01-08 Completed Universit y of Vaccine Quad IM 00:00:00 [place] Med ical Multi-dose 6+ MO Branch Influenza Virus 2016-01-08 Completed Universit y of Vaccine Quad IM 00:00:00 [place] Med ical Multi-dose 6+ MO Branch Influenza Virus 2016-01-08 Completed Universit y of Vaccine Quad IM 00:00:00 [place] Med ical Multi-dose 6+ MO Branch Influenza Virus 2016-01-08 Completed Universit y of Vaccine Quad IM 00:00:00 [place] Med ical Multi-dose 6+ MO Branch Influenza Virus 2016-01-08 Completed Universit y of Vaccine Quad IM 00:00:00 [place] Med ical Multi-dose 6+ MO Branch Influenza Virus 2016-01-08 Completed Universit y of Vaccine Quad IM 00:00:00 [place] Med ical Multi-dose 6+ MO Branch Influenza Virus 2016-01-08 Completed Universit y of Vaccine Quad IM 00:00:00 [place] Med ical Multi-dose 6+ MO Branch Influenza Virus 2016-01-08 Completed Universit y of Vaccine Quad IM 00:00:00 [place] Med ical Multi-dose 6+ MO Branch Influenza Virus 2016-01-08 Completed Universit y of Vaccine Quad IM 00:00:00 [place] Med ical Multi-dose 6+ MO Branch Influenza Virus 2016-01-08 Completed Universit y of Vaccine Quad IM 00:00:00 [facility] ical Multi-dose 6+ MO Branch Influenza Virus 2016-01-08 Completed Universit y of Vaccine Quad IM 00:00:00 [facility] ical Multi-dose 6+ MO Branch Influenza Virus 2016-01-08 Completed Universit y of Vaccine Quad IM 00:00:00 [facility] ical Multi-dose 6+ MO Branch Influenza Virus 2014-08-22 Completed Universit y of Vaccine (3+ yrs) 00:00:[address] [facility] Branch Influenza Virus 2014-08-22 Completed Universit y of Vaccine (3+ yrs) 00:00:[address] [facility] Branch Influenza Virus 2014-08-22 Completed Universit y of Vaccine (3+ yrs) 00:00:00 [place] [facility] dicri Branch Influenza Virus 2014-08-22 Completed Universit y of Vaccine (3+ yrs) 00:00:[address] [facility] Branch Influenza Virus 2014-08-22 Completed Universit y of Vaccine (3+ yrs) 00:00:[address] [facility] Branch Influenza Virus 2014-08-22 Completed Universit y of Vaccine (3+ yrs) 00:00:[address] [facility] Branch Influenza Virus 2014-08-22 Completed Universit y of Vaccine (3+ yrs) 00:00:[address] [facility] Branch Influenza Virus 2014-08-22 Completed Universit y of Vaccine (3+ yrs) 00:00:[address] [facility] Branch Influenza Virus 2014-08-22 Completed Universit y of Vaccine (3+ yrs) 00:00:[address] [facility] Branch Influenza Virus 2014-08-22 Completed Universit y of Vaccine (3+ yrs) 00:00:[address] [facility] Branch Influenza Virus 2014-08-22 Completed Universit y of Vaccine (3+ yrs) 00:00:[address] [facility] Branch Influenza Virus 2014-08-22 Completed Universit y of Vaccine (3+ yrs) 00:00:[address] [facility] Branch Influenza Virus 2014-08-22 Completed Universit y of Vaccine (3+ yrs) 00:00:[address] [facility] Branch Influenza Virus 2014-08-22 Completed Universit y of Vaccine (3+ yrs) 00:00:[address] [facility] Branch Influenza Virus 2014-08-22 Completed Universit y of Vaccine (3+ yrs) 00:00:[address] [facility] Branch Influenza Virus 2014-08-22 Completed Universit y of Vaccine (3+ yrs) 00:00:[address] [facility] Branch Influenza Virus 2014-08-22 Completed Universit y of Vaccine (3+ yrs) 00:00:[address] [facility] Branch Influenza Virus 2014-08-22 Completed Universit y of Vaccine (3+ yrs) 00:00:00 [facility] Influenza Virus 2014-08-22 Completed Universit y of Vaccine (3+ yrs) 00:00:[address] [facility] Branch Influenza Virus 2013-09-02 Completed Universit y of Vaccine (3+ yrs) 00:00:[address] [facility] Branch Influenza Virus 2013-09-02 Completed Universit y of Vaccine (3+ yrs) 00:00:[address] [facility] Branch Influenza Virus 2013-09-02 Completed Universit y of Vaccine (3+ yrs) 00:00:[address] [facility] Branch Influenza Virus 2013-09-02 Completed Universit y of Vaccine (3+ yrs) 00:00:[address] [facility] Branch Influenza Virus 2013-09-02 Completed Universit y of Vaccine (3+ yrs) 00:00:[address] [facility] Branch Influenza Virus 2013-09-02 Completed Universit y of Vaccine (3+ yrs) 00:00:[address] [facility] Branch Influenza Virus 2013-09-02 Completed Universit y of Vaccine (3+ yrs) 00:00:[address] [facility] Branch Influenza Virus 2013-09-02 Completed Universit y of Vaccine (3+ yrs) 00:00:[address] [facility] Branch Influenza Virus 2013-09-02 Completed Universit y of Vaccine (3+ yrs) 00:00:[address] [facility] Branch Influenza Virus 2013-09-02 Completed Universit y of Vaccine (3+ yrs) 00:00:[address] [facility] Branch Influenza Virus 2013-09-02 Completed Universit y of Vaccine (3+ yrs) 00:00:[address] [facility] Branch Influenza Virus 2013-09-02 Completed Universit y of Vaccine (3+ yrs) 00:00:[address] [facility] Branch Influenza Virus 2013-09-02 Completed Universit y of Vaccine (3+ yrs) 00:00:[address] [facility] Branch Influenza Virus 2013-09-02 Completed Universit y of Vaccine (3+ yrs) 00:00:00 [place] [facility] dical Branch Influenza Virus 2013-09-02 Completed Universit y of Vaccine (3+ yrs) 00:00:00 [facility] dical Branch Influenza Virus 2013-09-02 Completed Universit y of Vaccine (3+ yrs) 00:00:00 [facility] dical Branch Influenza Virus 2013-09-02 Completed Universit y of Vaccine (3+ yrs) 00:00:00 [facility] dical Branch Influenza Virus 2013-09-02 Completed Universit y of Vaccine (3+ yrs) 00:00:00 [facility] dical Branch Influenza Virus 2013-09-02 Completed Universit y of Vaccine (3+ yrs) 00:00:00 [place] [facility] dical Branch TDAP (ADACEL) VACCINE 2012-06-25 Completed Uni versity of 00:00:00 [facility] PPD (TB) 2012-06-25 Completed University of 00:00:00 [place] [facility] TDAP (ADACEL) VACCINE 2012-06-25 Completed Uni versity of 00:00:00 [facility] PPD (TB) 2012-06-25 Completed University of 00:00:00 [facility] TDAP (ADACEL) VACCINE 2012-06-25 Completed Uni versity of 00:00:00 [facility] PPD (TB) 2012-06-25 Completed University of 00:00:00 [place] [facility] TDAP (ADACEL) VACCINE 2012-06-25 Completed Uni versity of 00:00:00 [facility] PPD (TB) 2012-06-25 Completed University of 00:00:00 [facility] TDAP (ADACEL) VACCINE 2012-06-25 Completed Uni versity of 00:00:00 [facility] PPD (TB) 2012-06-25 Completed University of 00:00:00 [place] [facility] TDAP (ADACEL) VACCINE 2012-06-25 Completed Uni versity of 00:00:00 [facility] PPD (TB) 2012-06-25 Completed University of 00:00:00 [place] [facility] TDAP (ADACEL) VACCINE 2012-06-25 Completed Uni versity of 00:00:00 [facility] PPD (TB) 2012-06-25 Completed University of 00:00:00 [facility] TDAP (ADACEL) VACCINE 2012-06-25 Completed Uni versity of 00:00:00 [facility] PPD (TB) 2012-06-25 Completed University of 00:00:00 [place] [facility] TDAP (ADACEL) VACCINE 2012-06-25 Completed Uni versity of 00:00:00 [facility] PPD (TB) 2012-06-25 Completed University of 00:00:00 [place] [facility] TDAP (ADACEL) VACCINE 2012-06-25 Completed Uni versity of 00:00:00 [facility] PPD (TB) 2012-06-25 Completed University of 00:00:00 [place] [facility] TDAP (ADACEL) VACCINE 2012-06-25 Completed Uni versity of 00:00:00 [facility] PPD (TB) 2012-06-25 Completed University of 00:00:00 [place] [facility] TDAP (ADACEL) VACCINE 2012-06-25 Completed Uni versity of 00:00:00 [facility] PPD (TB) 2012-06-25 Completed University of 00:00:00 [place] [facility] TDAP (ADACEL) VACCINE 2012-06-25 Completed Uni versity of 00:00:00 [facility] PPD (TB) 2012-06-25 Completed University of 00:00:00 [facility] TDAP (ADACEL) VACCINE 2012-06-25 Completed Uni versity of 00:00:00 [facility] PPD (TB) 2012-06-25 Completed University of 00:00:00 [facility] TDAP (ADACEL) VACCINE 2012-06-25 Completed Uni versity of 00:00:00 [facility] PPD (TB) 2012-06-25 Completed University of 00:00:00 [facility] TDAP (ADACEL) VACCINE 2012-06-25 Completed Uni versity of 00:00:00 [facility] PPD (TB) 2012-06-25 Completed University of 00:00:00 [facility] TDAP (ADACEL) VACCINE 2012-06-25 Completed Uni versity of 00:00:00 [facility] PPD (TB) 2012-06-25 Completed University of 00:00:00 [place] [facility] TDAP (ADACEL) VACCINE 2012-06-25 Completed Uni versity of 00:00:00 [facility] PPD (TB) 2012-06-25 Completed University of 00:00:00 [facility] TDAP (ADACEL) VACCINE 2012-06-25 Completed Uni versity of 00:00:00 [facility] PPD (TB) 2012-06-25 Completed University of 00:00:00 [facility] Influenza Virus 2011-08-22 Completed Universit y of Vaccine 00:00:00 [facility] Influenza Virus 2011-08-22 Completed Universit y of Vaccine 00:00:00 [facility] Influenza Virus 2011-08-22 Completed Universit y of Vaccine 00:00:00 [facility] Influenza Virus 2011-08-22 Completed Universit y of Vaccine 00:00:00 [facility] Influenza Virus 2011-08-22 Completed Universit y of Vaccine 00:00:00 [facility] Influenza Virus 2011-08-22 Completed Universit y of Vaccine 00:00:00 [facility] Influenza Virus 2011-08-22 Completed Universit y of Vaccine 00:00:00 [facility] Influenza Virus 2011-08-22 Completed Universit y of Vaccine 00:00:00 [facility] Influenza Virus 2011-08-22 Completed Universit y of Vaccine 00:00:00 [facility] Influenza Virus 2011-08-22 Completed Universit y of Vaccine 00:00:00 [facility] Influenza Virus 2011-08-22 Completed Universit y of Vaccine 00:00:00 [facility] Influenza Virus 2011-08-22 Completed Universit y of Vaccine 00:00:00 [facility] Influenza Virus 2011-08-22 Completed Universit y of Vaccine 00:00:00 [facility] Influenza Virus 2011-08-22 Completed Universit y of Vaccine 00:00:00 [facility] Influenza Virus 2011-08-22 Completed Universit y of Vaccine 00:00:00 [facility] Influenza Virus 2011-08-22 Completed Universit y of Vaccine 00:00:00 [facility] Influenza Virus 2011-08-22 Completed Universit y of Vaccine 00:00:00 [facility] Influenza Virus 2011-08-22 Completed Universit y of Vaccine 00:00:00 [facility] Influenza Virus 2011-08-22 Completed Universit y of Vaccine 00:00:00 [facility] MMR 2011-08-19 Completed University of 00:00:00 [facility] Varicella 2011-08-19 Completed University of (varivax)(chicken 00:00:00 [place] [facility] pox) [facility] MMR 2011-08-19 Completed University of 00:00:00 [facility] Varicella 2011-08-19 Completed University of (varivax)(chicken 00:00:00 [place] [facility] pox) [facility] MMR 2011-08-19 Completed University of 00:00:00 [facility] Varicella 2011-08-19 Completed University of (varivax)(chicken 00:00:00 [place] [facility] pox[facility] 2011-08-19 Completed University of 00:00:00 [facility] Varicella 2011-08-19 Completed University of (varivax)(chicken 00:00:00 [place] [facility] pox[facility] 2011-08-19 Completed University of 00:00:00 [facility] Varicella 2011-08-19 Completed University of (varivax)(chicken 00:00:00 [place] [facility] pox) [facility] 2011-08-19 Completed University of 00:00:00 [facility] Varicella 2011-08-19 Completed University of (varivax)(chicken 00:00:00 [place] [facility] pox) [facility] 2011-08-19 Completed University of 00:00:00 [facility] Varicella 2011-08-19 Completed University of (varivax)(chicken 00:00:00 [place] [facility] pox) [facility] 2011-08-19 Completed University of 00:00:00 [facility] Varicella 2011-08-19 Completed University of (varivax)(chicken 00:00:00 [place] [facility] pox) [facility] 2011-08-19 Completed University of 00:00:00 [facility] Varicella 2011-08-19 Completed University of (varivax)(chicken 00:00:00 [place] [facility] pox) [facility] 2011-08-19 Completed University of 00:00:00 [facility] Varicella 2011-08-19 Completed University of (varivax)(chicken 00:00:00 [place] [facility] pox) [facility] 2011-08-19 Completed University of 00:00:00 [facility] Varicella 2011-08-19 Completed University of (varivax)(chicken 00:00:00 [place] [facility] pox) [facility] 2011-08-19 Completed University of 00:00:00 [facility] Varicella 2011-08-19 Completed University of (varivax)(chicken 00:00:00 [place] [facility] pox) [facility] 2011-08-19 Completed University of 00:00:00 [facility] Varicella 2011-08-19 Completed University of (varivax)(chicken 00:00:00 [place] [facility] pox) [facility] 2011-08-19 Completed [facility] of 00:00:00 [place] [facility] Varicella 2011-08-19 Completed University of (varivax)(chicken 00:00:00 [place] [facility] pox) [facility] MMR 2011-08-19 Completed University of 00:00:00 [facility] Varicella 2011-08-19 Completed University of (varivax)(chicken 00:00:00 [place] [facility] pox) [facility] MMR 2011-08-19 Completed University of 00:00:00 [facility] Varicella 2011-08-19 Completed University of (varivax)(chicken 00:00:00 [place] [facility] pox) [facility] MMR 2011-08-19 Completed University of 00:00:00 [facility] Varicella 2011-08-19 Completed University of (varivax)(chicken 00:00:00 [place] [facility] pox) Branch MMR 2011-08-19 Completed University of 00:00:00 [facility] Varicella 2011-08-19 Completed University of (varivax)(chicken 00:00:00 [place] [facility] pox) Branch MMR 2011-08-19 Completed University of 00:00:00 [facility] Varicella 2011-08-19 Completed University of (varivax)(chicken 00:00:00 [place] [facility] pox) [facility] PPD (TB) 2011-05-07 Completed University of 00:00:00 [facility] PPD (TB) 2011-05-07 Completed University of 00:00:00 [facility] PPD (TB) 2011-05-07 Completed University of 00:00:00 [facility] PPD (TB) 2011-05-07 Completed University of 00:00:00 [facility] PPD (TB) 2011-05-07 Completed University of 00:00:00 [facility] PPD (TB) 2011-05-07 Completed University of 00:00:00 [facility] PPD (TB) 2011-05-07 Completed University of 00:00:00 [facility] PPD (TB) 2011-05-07 Completed University of 00:00:00 [facility] PPD (TB) 2011-05-07 Completed University of 00:00:00 [facility] PPD (TB) 2011-05-07 Completed University of 00:00:00 [facility] PPD (TB) 2011-05-07 Completed University of 00:00:00 [facility] PPD (TB) 2011-05-07 Completed University of 00:00:00 [facility] PPD (TB) 2011-05-07 Completed University of 00:00:00 [facility] PPD (TB) 2011-05-07 Completed University of 00:00:00 [facility] PPD (TB) 2011-05-07 Completed University of 00:00:00 [facility] PPD (TB) 2011-05-07 Completed University of 00:00:00 [facility] PPD (TB) 2011-05-07 Completed University of 00:00:00 [facility] PPD (TB) 2011-05-07 Completed University of 00:00:00 [facility] PPD (TB) 2011-05-07 Completed University of 00:00:00 [facility] Pneumococcal 2011-01-20 Completed University o f Polysaccharide, 00:00:00 [place] [facility] PPSV23 (PNEUMOVAX) Branch Pneumococcal 2011-01-20 Completed University o f Polysaccharide, 00:00:00 [place] [facility] PPSV23 (PNEUMOVAX) Branch Pneumococcal 2011-01-20 Completed University o f Polysaccharide, 00:00:00 [place] [facility] PPSV23 (PNEUMOVAX) Branch Pneumococcal 2011-01-20 Completed University o f Polysaccharide, 00:00:00 [place] [facility] PPSV23 (PNEUMOVAX) Branch Pneumococcal 2011-01-20 Completed University o f Polysaccharide, 00:00:00 [place] [facility] PPSV23 (PNEUMOVAX) Branch Pneumococcal 2011-01-20 Completed University o f Polysaccharide, 00:00:00 [place] [facility] PPSV23 (PNEUMOVAX) Branch Pneumococcal 2011-01-20 Completed University o f Polysaccharide, 00:00:00 [place] [facility] PPSV23 (PNEUMOVAX) Branch Pneumococcal 2011-01-20 Completed University o f Polysaccharide, 00:00:00 [place] [facility] PPSV23 (PNEUMOVAX) Branch Pneumococcal 2011-01-20 Completed University o f Polysaccharide, 00:00:00 [place] [facility] PPSV23 (PNEUMOVAX) Branch Pneumococcal 2011-01-20 Completed University o f Polysaccharide, 00:00:00 [place] [facility] PPSV23 (PNEUMOVAX) Branch Pneumococcal 2011-01-20 Completed University o f Polysaccharide, 00:00:00 [place] [facility] PPSV23 (PNEUMOVAX) Branch Pneumococcal 2011-01-20 Completed University o f Polysaccharide, 00:00:00 [place] [facility] PPSV23 (PNEUMOVAX) Branch Pneumococcal 2011-01-20 Completed University o f Polysaccharide, 00:00:00 [place] [facility] PPSV23 (PNEUMOVAX) Branch Pneumococcal 2011-01-20 Completed University o f Polysaccharide, 00:00:00 [place] [facility] PPSV23 (PNEUMOVAX) Branch Pneumococcal 2011-01-20 Completed University o f Polysaccharide, 00:00:00 [place] [facility] PPSV23 (PNEUMOVAX) Branch Pneumococcal 2011-01-20 Completed University o f Polysaccharide, 00:00:00 [place] [facility] PPSV23 (PNEUMOVAX) Branch Pneumococcal 2011-01-20 Completed University o f Polysaccharide, 00:00:00 [place] [facility] PPSV23 (PNEUMOVAX) Branch Pneumococcal 2011-01-20 Completed University o f Polysaccharide, 00:00:00 [place] [facility] PPSV23 (PNEUMOVAX) Branch Pneumococcal 2011-01-20 Completed University o f Polysaccharide, 00:00:00 [place] [facility] PPSV23 (PNEUMOVAX) Branch Vital Signs Vital Name Observation Time Observation Value Comments Source Systolic blood 2023-05-09 17:06:00 111 mm[Hg] Univer sity [facility] Diastolic blood 2023-05-09 17:06:00 76 [facility]Hg[facility]-09 17:06:00 87 /min [facility] Respiratory rate 2023-05-09 17:06:00 18 /min [facility] Oxygen saturation in 2023-05-09 17:06:00 99 /min [facility] Arterial blood by [facility] Pulse oximetry [place] Body temperature 2023-05-09 13:11:00 36.44 Neda [facility] Body height 2023-05-03 00:40:00 162.6 cm [facility] Body weight 2023-05-03 00:40:00 31.752 kg [facility] BMI 2023-05-03 00:40:00 12.02 kg/m2 [facility] Systolic blood 2023-03-25 18:33:00 106 mm[Hg] Univer sity [facility] Diastolic blood 2023-03-25 18:33:00 74 mm[Hg] Unive rsity [facility] Heart rate 2023-03-25 18:33:00 102 /min [facility] [place] [facility] Body temperature 2023-03-25 18:33:00 36.83 Neda [facility] [place] [facility] Respiratory rate 2023-03-25 18:33:00 18 /min [facility] [place] [facility] Body height 2023-03-25 18:33:00 162.6 cm [facility] [place] [facility] Body weight 2023-03-25 18:33:00 34.02 kg [facility] [place] [facility] BMI 2023-03-25 18:33:00 12.87 kg/m2 [facility] Oxygen saturation in 2023-03-25 18:33:00 96 /min University of Arterial blood by [place] [employer] [facility] Pulse oximetry Branch Systolic blood 2023-03-03 20:10:00 97 mm[Hg] Univer sity of pressure [facility] Diastolic blood 2023-03-03 20:10:00 67 mm[Hg] Unive rsity of pressure [facility] Heart rate 2023-03-03 20:10:00 111 /min [facility] [place] [facility] Body temperature 2023-03-03 20:10:00 36.56 Neda [facility] [place] [facility] Body height 2023-03-03 20:10:00 162.6 cm [facility] [place] [facility] Body weight 2023-03-03 20:10:00 34.02 kg [facility] [place] [facility] BMI 2023-03-03 20:10:00 12.87 kg/m2 [facility] [place] [facility] Oxygen saturation in 2023-03-03 20:10:00 97 /min University of Arterial blood by [employer] [facility] Pulse oximetry Branch Systolic blood 2023-01-31 21:28:00 111 mm[Hg] Univer sity of [facility] [place] [facility] Diastolic blood 2023-01-31 21:28:00 78 mm[Hg] Unive rsity of pressure [place] [facility] Body temperature 2023-01-31 21:28:00 36.06 Neda [facility] [place] [facility] Respiratory rate 2023-01-31 21:28:00 19 /min [facility] [place] [facility] Oxygen saturation in 2023-01-31 21:28:00 92 /min University of Arterial blood by [employer] [facility] Pulse oximetry Branch Heart rate 2023-01-31 17:32:00 85 /min Universi ty of [facility] Body height 2023-01-28 14:11:00 162.6 cm Universi ty of [facility] Body weight 2023-01-28 14:11:00 34.473 kg [facility] [place] [facility] BMI 2023-01-28 14:11:00 13.05 kg/m2 Universi ty of [facility] Systolic blood 2023-01-27 20:16:00 85 mm[Hg] Univer sity of pressure [facility] Diastolic blood 2023-01-27 20:16:00 59 mm[Hg] Unive rsity of pressure [facility] Heart rate 2023-01-27 20:16:00 109 /min Universi ty of [facility] Body temperature 2023-01-27 20:14:00 36.06 Neda Univ ersity of [facility] Respiratory rate 2023-01-27 20:14:00 18 /min Univ ersity of [facility] Body height 2023-01-27 20:14:00 162.6 cm Universi ty of [facility] Body weight 2023-01-27 20:14:00 34.473 kg Universi ty of [facility] BMI 2023-01-27 20:14:00 13.05 kg/m2 Universi ty of [facility] Oxygen saturation in 2023-01-27 20:14:00 98 /min [facility] Arterial blood by [facility] Pulse oximetry Branch BP Diastolic 2022-04-28 20:00:00 69 mm[Hg] [facility] BP Systolic 2022-04-28 20:00:00 103 mm[Hg] [facility] Heart Rate 2022-04-28 20:00:00 92 /min [facility] BP Diastolic 2022-04-28 19:45:00 65 mm[Hg] [facility] BP Systolic 2022-04-28 19:45:00 104 mm[Hg] [facility] Heart Rate 2022-04-28 19:45:00 90 /min [facility] [...] [facility] Procedures Procedure Date / Time Performing Source Performed Clinician CBC WITHOUT DIFF [facility] MAGNESIUM 2023-05-08 [facility] [place] 11:39:00 Medical Branch BASIC METABOLIC PANEL (NA, K, 2023-05-08 Yassine Mirah [facility] [place] CL, CO2, GLUCOSE, BUN, 11:39:00 [facility] B ranch CREATININE, [place]) MAGNESIUM 2023-05-07 [facility] BASIC METABOLIC PANEL (NA, K, 2023-05-07 Clarke Jennifer [facility] [place] CL, CO2, GLUCOSE, BUN, 09:25:00 [facility] B ranch CREATININE, CA) CBC WITHOUT DIFF [facility]23[facility]05-[facility] [place]:25[facility] MAGNESIUM 2023-05-06 [facility] [place] 10:17:00 Medical [facility] BASIC METABOLIC PANEL (NA, K, 2023-05-06 [facility] [place] CL, CO2, GLUCOSE, BUN, 10:17:00 Medical B ranch CREATININE, CA) CBC WITHOUT DIFF 2023-05-06 [facility] [place] 10:17:00 [facility] CD4/CD8 SUBSET ASSAY 2023-05-05 Wilfrido [facility] 19:31:00 [facility] PHOSPHORUS 2023-05-04 [facility] [place] 09:57:00 Medical Branch MAGNESIUM 2023-05-04 [facility] xa 09:57:00 Medical Branch BASIC METABOLIC PANEL (NA, K, 2023-05-04 [facility], CO2, GLUCOSE, BUN, 09:57:00 Medical B ranch CREATININE, CA) CBC WITH DIFF 2023-05-04 [facility] [place] 09:57:00 [facility] MR BRAIN W WO CONTRAST 2023-05-04 Davin Anna [facility] 05:15:00 [facility] CSF/LABORATORY CHEMIST SHUNT CULTURE 2023-05-03 Wilfrido [facility] 07:09:00 [facility] CSF CULTURE 2023-05-03 Wilfrido [facility] ex[place] 07:09:00 [facility] CEREBROSPINAL FLUID PROTEIN 2023-05-03 Davin Anna [facility] 07:08:00 [facility] CEREBROSPINAL FLUID GLUCOSE 2023-05-03 Davin Anna [facility] 07:08:00 [facility] BODY FLUID DIRECT COUNT 2023-05-03 Davin Anna [facility] 07:08:00 [facility] MISCELLANEOUS SEND OUT TEST 2023-05-03 Davin Anna [facility] 07:08:00 [facility] FUNGUS (ROUTINE) CULTURE 2023-05-03 Davin Anna [facility] 07:07:00 [facility] CRYPTOCOCCAL ANTIGEN 2023-05-03 Wilfrido [facility] CSF/SERUM 07:07:00 [facility] MENINGITIS/ENCEPHALITIS PANEL 2023-05-03 Davin Anna [facility] BY PCR 07:07:00 [facility] AFB CULTURE 2023-05-03 Wilfrido [facility] exas 07:06:00 [facility] HB ECG ROUTINE & RHYTHM STRIP 2023-05-03 Davin Anna [facility] 06:33:41 [facility] MAGNESIUM 2023-05-03 Wilfrido [facility] ex 05:29:00 [facility] BASIC METABOLIC PANEL (NA, K, 2023-05-03 Davin Anna [facility] CL, CO2, GLUCOSE, BUN, 05:29:00 [facility] ranch CREATININE, CA) CBC WITH DIFF 2023-05-03 Wilfrido [facility] 05:29:00 [facility] MISCELLANEOUS SEND OUT TEST 2023-05-03 Davin Anna [facility] 05:29:00 [facility] LACTIC ACID WHOLE BLOOD 2023-05-03 Davin Anna [facility] 05:29:[address] [facility] [address] HEAD WO CONTRAST 2023-05-03 Wilfrido [facility] 03:47:21 [facility] BLOOD CULTURE SCREEN 2023-05-03 Wilfrido [facility] 03:09:00 [facility] PHOSPHORUS 2023-05-03 Wilfrido [facility] [place] 03:09:00 [facility] VITAMIN B12, LEVEL 2023-05-03 [facility] [place] 03:09:00 [facility] THYROID STIMULATING HORMONE 2023-05-03 Davin Anna [facility] 03:09:00 [facility] LIPID PANEL ([id number])(TOTAL 2023-05-03 aDvin Anna [facility] CHOLESTEROL, TRIGLYCERIDES, 03:09:00 [facility] HDL) GLYCOSYLATED HEMOGLOBIN (A1C) 2023-05-03 [facility] 03:09:00 [facility] PROTHROMBIN TIME / INR 2023-05-03 Davin Anna [facility] 03:09:00 [facility] ACTIVATED PARTIAL THRMPLAS 2023-05-03 Daivn Anna [facility] ANALISA 03:09:00 [facility] TOXOPLASMA IGG ANTIBODY 2023-05-03 Edis, [facility] 03:09:00 [facility] HEPATITIS B SURFACE ANTIBODY 2023-05-03 [facility] 03:09[facility]00 [facility] HEPATITIS B SURFACE ANTIGEN 2023-05-03 Davin Anna [facility] 03:09:00 [facility] HUMAN IMMUNODEFICIENCY VIRUS 2023-05-[address] [facility] 1 (HIV-1) BY QUANTITATIVE 03:09:00 [facility] NAAT HIV 1/2 AG-AB WITH REFLEX 2023-05-03 Davin Anna [facility] 03:09:00 [facility] HIV 1/2 AB SUPPLEMENTAL 2023-05-03 Davin Anna [facility] TESTING 03:09:00 [facility] SYPHILIS IGG/IGM 2023-05-03 Edis, [facility] [place] 03:09:00 [facility] XR CHEST 1 VW 2023-05-03 Wilfrido [facility] [place] 02:52:00 [facility] POCT TEST 2023-05-02 Christian Brun[facility] [place] 18:41:00 [facility] URINALYSIS 2023-05-02 Christian Bruner [facility] [place] 18:39:00 [facility] URINE DRUG (IMMUNOASSAY) - 2023-05-02 Christian Bruner [facility] COMPREHENSIVE DRUG SCREEN W/O 18:39:00 Nm dical Branch REFLEX MAGNESIUM 2023-05-02 Christian Bruner [facility] [place] 18:04:00 [facility] COMP. METABOLIC PANEL (68411) 2023-05-[address] [facility] 18:04:00 [facility] CBC WITH DIFF 2023-05-02 Christian Bruner [facility] [place] 18:04:00 [facility] CONSENT/REFUSAL FOR DIAGNOSIS 2023-05-02 Doctor Unassigned, [facility] AND TREATMENT 17:07:15 [place] [facility] HOSPITAL ADMISSION 2023-05-02 Doctor Unassigned, [facility] 05:01:00 [place] [facility] FUNGUS (ROUTINE) CULTURE 2023-03-25 [facility] 20:00:00 [facility] HSV 1&2, VZV NAAT 2023-03-25 [facility] 20:00:00 [facility] MAGNESIUM 2023-01-31 [facility] [facility] BASIC METABOLIC PANEL (NA, K, 2023-01-31 Beto [facility] CL, CO2, GLUCOSE, BUN, 09:52:00 [facility] ranch CREATININE, CA) CBC WITH DIFF 2023-01-31 Beto [facility] 09:52:[address] [facility] BLOOD CULTURE SCREEN 2023-01-30 Edda Ramirez [facility] 23:17:00 [facility] AFB BLOOD CULTURE 2023-01-30 [facility] 23:17:00 [facility] MR BRAIN W WO CONTRAST 2023-01-30 [facility] [facility] MAGNESIUM 2023-01-30 [facility] 11:11[facility] [facility] BASIC METABOLIC PANEL (NA, K, 2023-01-30 Beto [facility] CL, CO2, GLUCOSE, BUN, 11:11:00 [facility] ranch CREATININE, CA) CBC WITH DIFF 2023-01-30 Beto [facility] 11:11:[address] [facility] MAGNESIUM 2023-01-29 [facility] 10:37:00 [facility] BASIC METABOLIC PANEL (NA, K, 2023-01-[address] [facility] CL, CO2, GLUCOSE, BUN, 10:37:00 Medical ranch CREATININE, CA) DIFF CONSULT BY PATHOLOGIST 2023-01-29 Perez [facility] 10:37:00 [facility] CBC WITH DIFF 2023-01-29 Perez, [facility] xa 10:37:00 [facility] DIFF CONSULT INTERPRETATION 2023-01-29 Perez, [facility] 10:37:00 [facility] CLOSTRIDIUM DIFFICILE TOXIN 2023-01-29 Ashley, [facility] 02:16:00 [facility] FECAL PATHOGENS BY PCR 2023-01-29 Ashley, [facility] 02:16:00 [facility] HISTOPLASMA GALACTOMANNAN 2023-01-29 Perez, [facility] ANTIGEN QUANTITATIVE BY EIA, 02:10:00 [facility] ical [place] URINE ELECTROENCEPHALOGRAM 2023-01-29 Perez, [facility] 00:00:00 [facility] HUMAN IMMUNODEFICIENCY VIRUS 2023-01-28 Perez [facility] 1 (HIV-1) BY QUANTITATIVE 23:11:00 [facility] NAAT CT HEAD WO CONTRAST 2023-01-28 Perez [facility] 14:56:26 [facility] CBC WITH DIFF 2023-01-[address] [facility] xa 12:20:00 [facility] RETICULOCYTES AUTOMATED 2023-01-28 [facility] 12:[facility]00 [facility] PREALBUMIN, SERUM 2023-01-28 [facility] 12:17[facility]00 [facility] MAGNESIUM 2023-01-28 Ashley, [facility] xa 12:17:00 [facility] BASIC METABOLIC PANEL (NA, K, 2023-01-[address] [facility] CL, CO2, GLUCOSE, BUN, 12:17:00 [facility] ran CREATININE, [place]) LIPID PANEL (73520)(TOTAL 2023-01-28 [facility] CHOLESTEROL, TRIGLYCERIDES, 12:17:00 [facility] HDL) TOTAL BETA HCG ASSAY 2023-01-28 [facility] 12:17:00 Joe [facility] CMV BY QUANTITATIVE NAAT 2023-01-28 Ashley [facility] 02:25:00 [facility] PHOSPHORUS 2023-01-28 Ashley, [facility] [place] 01:48:00 Medical Branch LACTATE DEHYDROGENASE 2023-01-28 Ashley, [facility] 01:48:00 [facility] HEPATIC FUNCTION PANEL 2023-01-28 Ashley, [facility] ([id number]) (ALB,T.PRO,BILI 01:48:00 Medical Branch T,BU/BC,ALT,AST,ALK PHOS) BASIC METABOLIC PANEL (NA, K, 2023-01-28 Ashley, [facility] CL, CO2, GLUCOSE, BUN, 01:48:00 [facility] ranch CREATININE, CA) CBC WITH DIFF 2023-01-28 Ashley, [facility] [place] 01:48:00 [facility] CD4 SUBSET ASSAY 2023-01-28 Ashley, [facility] [place] 01:48:00 Medical [place] PROTHROMBIN TIME / INR 2023-01-28 Ashley, [facility] 01:48:00 [facility] ACTIVATED PARTIAL THRMPLAS 2023-01-28 Ashley, [facility] ANALISA 01:48:00 [facility] CRYPTOCOCCAL ANTIGEN 2023-01-28 Ashley, [facility] CSF/SERUM 01:48:00 [facility] SYPHILIS IGG/IGM 2023-01-28 Ashley, [facility] [place] 01:48:00 [facility] XR CHEST 1 VW 2023-01-28 Ashley, [facility] x[place] 01:34:00 [facility] COMPREHEN METABOLIC PANEL 2022-04-28 [facility] 00:00:00 URINALYSIS AUTO W/SCOPE 2022-04-28 [facility] 00:00:00 ASSAY OF LACTIC ACID 2022-04-28 [facility] alth 00:00:00 COMPLETE CBC W/AUTO DIFF WBC 2022-04-28 [facility] 00:[facility]:00 PROTHROMBIN TIME 2022-04-28 [facility] 00:00:00 THROMBOPLASTIN TIME PARTIAL 2022-04-28 [facility] 00:00:00 T CELL ABSOLUTE COUNT 2022-04-28 [facility] ealth 00:00:00 BLOOD CULTURE FOR BACTERIA 2022-04-28 [facility] 00:00:00 CULTURE AEROBIC IDENTIFY 2022-04-28 [facility] 00:00:00 URINE CULTURE/COLONY COUNT 2022-04-28 [facility] 00:00:00 URINE BACTERIA CULTURE 2022-04-28 [facility] 00:00:00 MICROBE SUSCEPTIBLE DREW 2022-04-28 [facility] 00:00:00 THER/PROPH/DIAG IV INF INIT 2022-04-28 [facility] 00:00:00 THER/PROPH/DIAG IV INF ADDON 2022-04-28 [facility] 00:00:00 TX/PROPH/DG ADDL SEQ IV INF 2022-04-28 [facility] 00:00:00 EMERGENCY DEPT VISIT 2022-04-28 [facility] 00:00:00 Piperacillin/tazobactam 2022-04-28 [facility] 00:00:00 Vancomycin hcl injection 2022-04-28 [facility] 00:00:00 Normal saline solution infus 2022-04-28 [facility] 00:00:00 Encounters Start End Encounter Admission Attending Care Care Encounter Source Date/Time Date/Time Type Type Clinicians Facility Department ID 2023-05-15 2023-05-[address] [facility] [id number] Univers 09:30:00 09:30:00 EDI ity [facility] 2023-05-13 2023-05-13 Transition QUAN [place] 1.2.840.114 [id number] Univers 00:00:00 00:00:00 of Care Audrey GONZALEZ 350.1.13.10 it y of [place] 4.2.7.2.686 [facility] [id number] [facility] 403 Branch 2023-05-02 2023-05-09 Inpatient U [facility] [id number] Univers 12:26:00 14:20:00 heri HINSON [facility] 2023-05-02 2023-05-09 Hospital Christian Bruner 1.2.840.1 [id number] Univers 12:26:00 14:20:00 Encounter Sonja RandhawaY 350.1.13.10 ity of [facility] 4.2.7. 2.686 [place] [id number] [facility] 096 Branch 2023-05-09 2023-05-09 Telephone Wilfrido [facility] 1.2.840.114 [id number] Univers 00:00:00 00:00:00 Davin PRIMARY 350.1.13.10 it y [place] [id number] Nm dical 389 Branch 2023-05-01 2023-05-01 Outpatient R SHANAE DICKINSON [facility] [id number] Univers 14:45:00 14:45:00 ity [facility] 2023-04-29 2023-04-29 [facility] [id number] Univers 13:30:00 13:30:00 EDI [facility] 2023-04-23 2023-04-23 [facility] [id number] Univers 14:30:00 15:19:19 FEMI [facility] 2023-04-23 2023-04-23 Ancillary Sarika Silveira [facility] 1.2.840 .114 [id number] Univers 14:30:00 15:19:19 Visit Femi Ashraf PRIMARY 350.1.13.10 [place] [id number] Nm dical 179 Branch 2023-03-25 2023-03-25 Cake Puller [facility] UNIVERSIT 1.2.840.114 1 [id number] Univers 15:15:00 15:30:00 Visit Edi Ledesma HEALTH 350.1.13.10 it[place] [id number] [facility] 316 Branch 2023-03-25 2023-03-25 Outpatient R AIDA [facility] [id number] Univers 13:30:00 14:57:02 EDI heri [facility] 2023-03-25 2023-03-25 Office EDISON Ledesma [id number] Univers 13:30:00 14:57:02 Visit Edi [facility] 350.1.13.10 i ty [place] [id number] [facility] 089 Branch 2023-03-03 2023-03-03 Out[facility] [id number] Univers 15:10:00 15:33:43 MAGDALENO liriano [facility] 2023-03-03 2023-03-03 Office Brooke Vides [facility] 1.2.840.11 [id number] Univers 15:10:00 15:33:43 Visit KavithaMagdaleno [facility] 350.1.13.10 ity [place] [id number] Nm dical 044 [place] 2023-02-05 2023-02-05 [facility] [id number] Univers 11:30:00 11:30:00 EDI nirunoble [facility] 2023-02-03 2023-02-03 Transition QUAN Cabral 1.2.840.114 [id number] Univers 00:00:00 00:00:00 of Care Ericka GONZALEZ 350.1.13.10 it [place] [id number] [facility] 403 Branch 2023-02-01 2023-02-01 Telephone [facility], UNIVERSIT 1.2.840.114 [id number] Univers 00:00:00 00:00:00 [facility] 350.1.13.10 i ty of [place] [id number] [facility] 089 Branch 2023-01-27 2023-01-31 [facility] Valentino Rojas 1.2.840.114 1 [id number] Univers 16:31:00 16:00:00 Encounter Edwin SUAZO 350.1.13.10 ity of [facility] 4.2.7.2.686 [place] [id number] [facility] 096 Branch 2023-01-27 2023-01-27 Office [facility], UNIVERSIT 1.2.477.153 [id number] Univers 14:30:00 15:00:00 Visit [facility] 350.1.13.10 i ty of [place] [id number] [facility] 089 Branch 2023-01-27 2023-01-27 Outpatient [facility] JOVANA [id number] Univers 14:30:00 14:30:00 EDI ity of [facility] 2022-07-01 2022-07-01 Transition QUAN Cabral 1.2.840.114 [id number] Univers 00:00:00 00:00:00 of Care Ericka HATCHY 350.1.13.10 it y of [place] [id number] [facility] 403 Branch 2022-06-24 2022-06-28 Hospital Jeovany Mcgrath [facility] 1.2.840.1 14 [id number] Univers 14:56:00 17:30:00 Encounter Baker Sanket Hinojosa [facility] 350. 1.13.10 ity of [facility] MckenzieTeri 4.2.7.2.686 [place] [id number] [facility] 113 Branch ([facility]) 2022-06-24 2022-06-28 Inpatient X [facility] [id number] Univers 14:56:00 17:30:00 CRITICAL ACCESS HOSPITALniruy o f [facility] 2022-06-24 2022-06-28 Inpatient X [facility] JOVANA [id number] Univers 14:56:00 17:30:00 SANTOS ity o f [facility] 2022-06-27 2022-06-27 Surgery [facility] 1.2.840.114 [id number] Univers 07:00:00 07:56:00 [facility] 350.1.13.10 i ty of [place] [id number] [facility] 020 Branch ([facility]) 2022-05-18 2022-05-18 Emergency ER MEGAN PANCHAL [id number] [place] 13:07:00 13:52:00 CHRISTINA 78 [facility] 2022-05-16 2022-05-16 Emergency ER JOSSY KELLY AA [id number] [facility] 12:40:00 13:29:00 78 Health 2022-05-11 2022-05-11 Departed ER MEGAN CHAVEZ [id number] [facility] 13:47:00 14:58:00 Emergency JOLEEN [facility] 2022-04-28 2022-04-28 Departed ER MEGAN ALANIS [id number] [facility] 16:10:00 20:25:00 Emergency RYDER [facility] Results Test Description Test Time Test Comments Results Result Comments Source Misc. Sendout- YURIDIA Virus by PCR- [id number] 2023-05-09 13:18:27 Test Item Value Reference Range Interpretation Comme nts Miscellaneous Test (test code = 9290639320) See scanned report Performing Lab (test code = 1529391288) [facility] 10:07:53 Test Item Value Reference Range Interpretation Comments MAGNESIUM (test code = 3234935758) 1.8 mg/dL 1.7-2.4 Lab Interpretation (test code = Normal 52403-0) [facility] METABOLIC PANEL (NA, K, CL, CO2, GLUCOSE, BUN, CREATININE, CA)2023-05-07 10:07:53 Test Item Value Reference Range Interpretation Comments NA (test code = 135 mmol/L 135-145 5284213267) K (test code = 3.6 mmol/L 3.5-5.0 8527278397) CL (test code = 100 mmol/L 98-108 0369659027) CO2 TOTAL (test code 24 mmol/L 23-31 = 3255397720) AGAP (test code = 11 2-16 2098735411) BUN (test code = 17 mg/dL 7-23 3651432802) GLUCOSE (test code = 79 mg/dL 70-110 0985398974) CREATININE (test code 0.57 mg/dL 0.50-1.04 = 2713587594) CALCIUM (test code = 8.9 mg/dL 8.6-10.6 9906421857) eGFR (test code = 122.9 mL/min/1.73m2 4309767720) VALERIO (test code = VALERIO) Association of Glomerular Filtration Rate (GFR) and Staging of Kidney Disease* + + +- +| GFR (mL/min/1.73 m2) ?| With Kidney Damage ?| ?Without Kidney Damage+ ------+ ----+ ------+| ?>90 ?| ?Stage one ?| ? Normal ?+ -+ + -+| ?60-89 ?| ?Stage two ?| ? Decreased GFR ? + + +- +| ?30-59 ?| ?Stage three ?| ? Stage three ? + + +- +| ?15-29 ?| ?Stage four ? | ? Stage four ?+ -+ + -+| ?<15 (or dialysis) ? ?| ?Stage five ? | ? Stage five ?+ -+ + -+ *Each stage assumes the associated GFR level has been in effect for at least three months. ?Stages 1 to 5, with or without kidney disease, indicate chronic kidney disease. Notes: Determination of stages one and two (with eGFR >59mL/min/1.73 m2) requires estimation of kidney damage for at least three months as defined by structural or functional abnormalities of the kidney, manifested by either:Pathological abnormalities or Markers of kidney damage (including abnormalities in the composition of the blood or urine or abnormalities in imaging tests). [facility] WITHOUT [id number] 09:59:51 Test Item Value Reference Range Interpretation Comments WBC (test code = 4.31 See_Comment [Automated message] 6690-2) The system [employer] generated this result transmitted ref erence range: 4.30 - 1 1.10 10*3/?L. The reference range was not used to int erpret this result as normal/abnormal . RBC (test code = 789-8) 4.20 See_Comment [Au tomated message] The system [employer] generated this result transmitted ref erence range: 3.93 - 5 .25 10*6/?L. The reference range was not used to int erpret this result as normal/abnormal . HGB (test code = 718-7) 12.9 g/dL 11.6-15.0 HCT (test code = 36.9 % 35.7-45.2 4544-3) MCH (test code = 785-6) 30.7 pg 25.9-32.8 MCV (test code = 787-2) 87.9 fL 80.6-95.5 MCHC (test code = 35.0 g/dL 31.6-35.1 786-4) PLT (test code = 777-3) 138 See_Comment L [Au tomated message] The system [employer] generated this result transmitted ref erence range: 166 - 35 8 10*3/?L. The reference range was not used to int erpret this result as normal/abnormal . MPV (test code = 11.4 fL 9.5-12.9 25948-7) RDW-CV (test code = 13.3 % 12.0-15.5 788-0) RDW-SD (test code = 42.9 fL 39.0-49.9 04976-9) NRBC x10^3 (test code = See_Comment [Au tomated message] 1310353177) The system [employer] generated this result transmitted ref erence range: 10*3/?L. The reference range was not used to int erpret this result as normal/abnormal . NRBC/100 WBC (test code 0.0 See_Comment [Au tomated message] = 2697052584) The system [facility] generated this result transmitted ref erence range: 0.0 - 10 .0 /100 WBCs. The reference range was not used to int erpret this result as normal/abnormal . IPF % (test code = 8.2 % 1.3-7.7 H Platelet count 0167584370) measured by fluorescence me thod. Lab Interpretation Abnormal (test code = 79071-2) [facility] WITH [id number] 10:42:16 Test Item Value Reference Range Interpretation Comments WBC (test code = 2.66 See_Comment L [Automated 4790-2) message] The sy stem which generated this result transmitted reference range : 4.30 - 11.10 10*3/?L. The reference range was not used to interpret this result as normal/abnormal . RBC (test code = 3.61 See_Comment L [Automated 429-8) message] The sy stem which generated this result transmitted reference range : 3.93 - 5.25 10*6/?L. The reference range was not used to interpret this result as normal/abnormal . HGB (test code = 11.2 g/dL 11.6-15.0 L 718-7) HCT (test code = 32.1 % 35.7-45.2 L 4544-3) MCV (test code = 88.9 fL 80.6-95.5 787-2) MCH (test code = 31.0 pg 25.9-32.8 785-6) MCHC (test code = 34.9 g/dL 31.6-35.1 786-4) RDW-SD (test code = 43.6 fL 39.0-49.9 69394-3) RDW-CV (test code = 13.4 % 12.0-15.5 788-0) PLT (test code = 105 See_Comment L [Automated 777-3) message] The sy stem which generated this result transmitted reference range : 166 - 358 10*3/ ?L. The reference r criselda was not used to interpret this result as normal/abnormal . MPV (test code = 11.3 fL 9.5-12.9 22130-0) IPF % (test code = 6.4 % 1.3-7.7 Platelet count 0864864203) measured by fluorescence method. NRBC/100 WBC (test 0.0 See_Comment [Automat ed code = 7229149084) message] The system which generated this result transmitted reference range : 0.0 - 10.0 /100 WBCs. The refer ence range was not u sed to interpret th is result as normal/abnormal . NRBC x10^3 (test code See_Comment [Auto mated = 9259034215) message] The s ystem which generated this result transmitted reference range : 10*3/?L. The reference range was not used to interpret this result as normal/abnormal . GRAN MAT (NEUT) % 80.4 % (test code = 770-8) IMM GRAN % (test code 0.40 % = 8525255321) LYMPH % (test code = 4.9 % 736-9) MONO % (test code = 8.3 % 5905-5) EOS % (test code = 5.6 % 713-8) BASO % (test code = 0.4 % 706-2) GRAN MAT x10^3(ANC) 2.14 10*3/uL 1.88-7.09 (test code = 7637610031) IMM GRAN x10^3 (test 0.00-0.06 code = 5293493362) LYMPH x10^3 (test code 0.13 10*3/uL 1.32-3.29 L = 731-0) MONO x10^3 (test code 0.22 10*3/uL 0.33-0.92 L = 742-7) EOS x10^3 (test code = 0.15 10*3/uL 0.03-0.39 711-2) BASO x10^3 (test code 0.01-0.07 = 704-7) BANDS (test code = Increased A 1738890055) Lab Interpretation Abnormal (test code = 65119-9) [facility] METABOLIC PANEL (NA, K, CL, CO2, GLUCOSE, BUN, CREATININE, CA)2023-05-04 10:39:04 Test Item Value Reference Range Interpretation Comments NA (test code = 133 mmol/L 135-145 L 3731244702) K (test code = 3.9 mmol/L 3.5-5.0 7069524551) CL (test code = 104 mmol/L 98-108 2602772021) CO2 TOTAL (test code = 19 mmol/L 23-31 L 3151898271) AGAP (test code = 10 2-16 8813029042) BUN (test code = 15 mg/dL 7-23 6849159042) GLUCOSE (test code = 87 mg/dL 70-110 4588424064) CREATININE (test code = 0.51 mg/dL 0.50-1.04 1072230680) CALCIUM (test code = 8.5 mg/dL 8.6-10.6 L 9798183096) eGFR (test code = 139.8 mL/min/1.73m2 5586245515) VALERIO (test code = VALERIO) Association of Glomerular Filtration Rate (GFR) and Staging of Kidney Disease* + --+ --+ ------+| GFR (mL/min/1.73 m2) ?| With Kidney Damage ?| ?Without Kidney Damage+ --------+ --------+ +| ?>90 ?| ?Stage one ?| ? Normal ?+ ---+ ---+ -------+| ?60-89 ?| ?Stage two ?| ? Decreased GFR ? + --+ --+ ------+| ?30-59 ?| ?Stage three ?| ? Stage three ? + --+ --+ ------+| ?15-29 ?| ?Stage four ? | ? Stage four ?+ ---+ ---+ -------+| ?<15 (or dialysis) ? ?| ?Stage five ? | ? Stage five ?+ ---+ ---+ -------+ *Each stage assumes the associated GFR level has been in effect for at least three months. ?Stages 1 to 5, with or without kidney disease, indicate chronic kidney disease. Notes: Determination of stages one and two (with eGFR >59mL/min/1.73 m2) requires estimation of kidney damage for at least three months as defined by structural or functional abnormalities of the kidney, manifested by either:Pathological abnormalities or Markers of kidney damage (including abnormalities in the composition of the blood or urine or abnormalities in imaging tests). Lab Interpretation Abnormal (test code = 43210-0) [facility] 10:39:04 Test Item Value Reference Range Interpretation Comments MAGNESIUM (test code = 8681157425) 1.8 mg/dL 1.7-2.4 Lab Interpretation (test code = Normal 58061-2) [facility] 10:39:04 Test Item Value Reference Range Interpretation Comments PHOSPHORUS (test code = 9886663484) 4.5 mg/dL 2.5-5.0 Lab Interpretation (test code = Normal 67087-8) [facility] Center[facility] Whole [id number] 05:42:16 Test Item Value Reference Range Interpretation Comments LACTIC ACID (test code = 1.34 mmol/L 0.50-2.20 7337111624) Lab Interpretation (test code = Normal 03762-5) [facility] WITH [id number] 19:52:08 Test Item Value Reference Range Interpretation Comments WBC (test code = 7.96 See_Comment [Automated 4145-2) message] The sy stem which generated this result transmitted reference range : 4.30 - 11.10 10*3/?L. The reference range was not used to interpret this result as normal/abnormal . RBC (test code = 4.12 See_Comment [Automated 789-8) message] The sy stem which generated this result transmitted reference range : 3.93 - 5.25 10*6/?L. The reference range was not used to interpret this result as normal/abnormal . HGB (test code = 13.2 g/dL 11.6-15.0 718-7) HCT (test code = 38.0 % 35.7-45.2 4544-3) MCV (test code = 92.2 fL 80.6-95.5 787-2) MCH (test code = 32.0 pg 25.9-32.8 785-6) MCHC (test code = 34.7 g/dL 31.6-35.1 786-4) RDW-SD (test code = 46.5 fL 39.0-49.9 99267-5) RDW-CV (test code = 13.7 % 12.0-15.5 788-0) PLT (test code = 119 See_Comment L [Automated 777-3) message] The sy stem which generated this result transmitted reference range : 166 - 358 10*3/ ?L. The reference r criselda was not used to interpret this result as normal/abnormal . MPV (test code = 11.4 fL 9.5-12.9 56083-9) IPF % (test code = 8.2 % 1.3-7.7 H Platelet count 8377277152) measured by fluorescence method. NRBC/100 WBC (test 0.0 See_Comment [Automat ed code = 0736811272) message] The system which generated this result transmitted reference range : 0.0 - 10.0 /100 WBCs. The refer ence range was not u sed to interpret th is result as normal/abnormal . NRBC x10^3 (test code See_Comment [Auto mated = 3723404468) message] The s ystem which generated this result transmitted reference range : 10*3/?L. The reference range was not used to interpret this result as normal/abnormal . GRAN MAT (NEUT) % 91.9 % (test code = 770-8) IMM GRAN % (test code 0.40 % = 8529043718) LYMPH % (test code = 1.9 % 736-9) MONO % (test code = 4.1 % 5905-5) EOS % (test code = 1.3 % 713-8) BASO % (test code = 0.4 % 706-2) GRAN MAT x10^3(ANC) 7.19 10*3/uL 1.88-7.09 H (test code = 9128624844) IMM GRAN x10^3 (test 0.03 10*3/uL 0.00-0.06 code = 1573002345) LYMPH x10^3 (test code 0.15 10*3/uL 1.32-3.29 L = 731-0) MONO x10^3 (test code 0.32 10*3/uL 0.33-0.92 L = 742-7) EOS x10^3 (test code = 0.10 10*3/uL 0.03-0.39 711-2) BASO x10^3 (test code 0.03 10*3/uL 0.01-0.07 = 704-7) Lab Interpretation Abnormal (test code = 42959-6) [facility]. METABOLIC PANEL (79177)2023-05-02 18:44:56 Test Item Value Reference Range Interpretation Comments NA (test code = 138 mmol/L 135-145 2611114427) K (test code = 3.4 mmol/L 3.5-5.0 L 5401039886) CL (test code = 104 mmol/L 98-108 1752219976) CO2 TOTAL (test code = 24 mmol/L 23-31 9997087788) AGAP (test code = 10 2-16 4077625223) BUN (test code = 16 mg/dL 7-23 4348631369) GLUCOSE (test code = 127 mg/dL 70-110 H 1358767134) CREATININE (test code = 0.48 mg/dL 0.50-1.04 L 1198743658) TOTAL BILI (test code = 0.4 mg/dL 0.1-1.8 1085221101) CALCIUM (test code = 8.7 mg/dL 8.6-10.6 2256134427) T PROTEIN (test code = 7.4 g/dL 6.3-8.2 9995122236) ALBUMIN (test code = 3.8 g/dL 3.5-5.0 2949842924) ALK PHOS (test code = 91 U/L 34-122 3118841032) ALTv (test code = 56 U/L 5-35 H 2-6) AST(SGOT) (test code = 89 U/L 13-40 H 7262062493) eGFR (test code = 149.9 mL/min/1.73m2 3499780289) VALERIO (test code = VALERIO) Association of Glomerular Filtration Rate (GFR) and Staging of Kidney Disease* + --+ --+ ------+| GFR (mL/min/1.73 m2) ?| With Kidney Damage ?| ?Without Kidney Damage+ --------+ --------+ +| ?>90 ?| ?Stage one ?| ? Normal ?+ ---+ ---+ -------+| ?60-89 ?| ?Stage two ?| ? Decreased GFR ? + --+ --+ ------+| ?30-59 ?| ?Stage three ?| ? Stage three ? + --+ --+ ------+| ?15-29 ?| ?Stage four ? | ? Stage four ?+ ---+ ---+ -------+| ?<15 (or dialysis) ? ?| ?Stage five ? | ? Stage five ?+ ---+ ---+ -------+ *Each stage assumes the associated GFR level has been in effect for at least three months. ?Stages 1 to 5, with or without kidney disease, indicate chronic kidney disease. Notes: Determination of stages one and two (with eGFR >59mL/min/1.73 m2) requires estimation of kidney damage for at least three months as defined by structural or functional abnormalities of the kidney, manifested by either:Pathological abnormalities or Markers of kidney damage (including abnormalities in the composition of the blood or urine or abnormalities in imaging tests). Lab Interpretation Abnormal (test code = 39304-2) [facility] 18[facility]44:56 Test Item Value Reference Range Interpretation Comments MAGNESIUM (test code = 4257707857) 1.7 mg/dL 1.7-2.4 Lab Interpretation (test code = Normal 43598-3) [facility]PO[facility] [id number] 18:41:00 Test Item Value Reference Range Interpretation Comments POCT PREG (test code = 1605) Negative On board controls acceptable with Yes C Line (test code = 3574) POCT PREG LOT # (test code = 3574) [id number] POCT PREG TEST DATE (test 08-29-2024 code = 3576) Lab Interpretation (test code = Normal 82382-4) [facility] IMMUNODEFICIENCY VIRUS 1 (HIV-1) BY QUANTITATIVE [id number] 16:04:32 Test Item Value Reference Range Interpretation Comments HIV-1 Quantitative 067863 Not Detected H NAAT - copies/mL (test Copies/mL code = 77852-8) HIV-1 Quantitative Detected Not Detected A Interpretation (test code = 2814396170) VALERIO (test code = VALERIO) The Aptima HIV-1 Quant assay is an FDA-approved nucleic acid amplification test (NAAT) for the quantitation of human immunodeficiency virus type 1 (HIV-1) RNA in human plasma from HIV-1 infected individuals. ?It is intended for use as an aid in monitoring the effects of antiretroviral treatment. ?It is not approved for use as a donor screening test for HIV-1 or as a diagnostic test to confirm the presence of HIV-1 infection. The quantitative range of this assay is 1.47 - 7.00 log copies/mL or 30 - 10,000,000 copies/mL. An interpretation of "Not Detected" does not rule out the presence of inhibitors in the patient specimen or HIV-1 RNA concentration below the level of detection of the test. ?Care should be taken when interpreting any single viral load determination. Detected, not Quantifiable: HIV-1 RNA detected, but at a level below 30 copies/mL (1.47 log copies/mL). ?HIV-1 RNA concentration is below the lower limit of quantitation of the assay. Indeterminate: Error indicated in the generation of the result. ?Please submit a new specimen for repeat testing if clinically indicated. Lab Interpretation Abnormal (test code = 52279-7) [facility] CenterCD4 SUBSET [id number] 18:00:22 Test Item Value Reference Range Interpretation Comments CD4 % (test code = 1 % 31-60 L 8123-2) CD4 Absolute (test code 2 See_Comment L [Au tomated message] = 42482-1) The system [employer] generated this result transmitted ref erence range: 410 - 1, 590 Cells/?L. The reference range was not used to int erpret this result as normal/abnormal . Lab Interpretation (test Abnormal code = 07836-4) [facility] CenterCRYPTOCOCCAL ANTIGEN CSF/HSSAE9013-73-70 16:54:15 Test Item Value Reference Range Interpretation Comments Specimen Tested (test code = Serum 5608408298) Cryptococcal Antigen (test code = Negative Negative 05660-5) [facility] CenterSYPHILIS IGG/[id number] 15:46:17 Test Item Value Reference Range Interpretation Comments Syphilis IgG/IgM (test Non-reactive Non-reactive code = 77785-3) VALERIO (test code = VALERIO) Non-reactive - No serologic evidence of T. pallidum infection. Cannot exclude incubating or early syphilis. Submit a second specimen in 2-4 weeks if syphilis is clinically suspected. Equivocal - Further testing to follow. Reactive - Further testing to follow. Lab Interpretation (test Normal code = 20858-0) [facility] CenterBA[facility]OL[facility] (NA, K, CL, CO2, GLUCOSE, BUN, CREATININE, CA)2023-01-28 02:48:49 Test Item Value Reference Range Interpretation Comments NA (test code = 135 mmol/L 135-145 3715936548) K (test code = 3.2 mmol/L 3.5-5.0 L 9215702445) CL (test code = 106 mmol/L 98-108 2989285664) CO2 TOTAL (test code = 18 mmol/L 23-31 L 9323175164) AGAP (test code = 11 2-16 4531551496) BUN (test code = 9 mg/dL 7-23 1286358551) GLUCOSE (test code = 115 mg/dL 70-110 H 1796974208) CREATININE (test code = 0.52 mg/dL 0.50-1.04 5680710350) CALCIUM (test code = 8.5 mg/dL 8.6-10.6 L 5599176902) eGFR (test code = 136.7 mL/min/1.73m2 7211598161) VALERIO (test code = VALERIO) Association of Glomerular Filtration Rate (GFR) and Staging of Kidney Disease* + --+ --+ ------+| GFR (mL/min/1.73 m2) ?| With Kidney Damage ?| ?Without Kidney Damage+ --------+ --------+ +| ?>90 ?| ?Stage one ?| ? Normal ?+ ---+ ---+ -------+| ?60-89 ?| ?Stage two ?| ? Decreased GFR ? + --+ --+ ------+| ?30-59 ?| ?Stage three ?| ? Stage three ? + --+ --+ ------+| ?15-29 ?| ?Stage four ? | ? Stage four ?+ ---+ ---+ -------+| ?<15 (or dialysis) ? ?| ?Stage five ? | ? Stage five ?+ ---+ ---+ -------+ *Each stage assumes the associated GFR level has been in effect for at least three months. ?Stages 1 to 5, with or without kidney disease, indicate chronic kidney disease. Notes: Determination of stages one and two (with eGFR >59mL/min/1.73 m2) requires estimation of kidney damage for at least three months as defined by structural or functional abnormalities of the kidney, manifested by either:Pathological abnormalities or Markers of kidney damage (including abnormalities in the composition of the blood or urine or abnormalities in imaging tests). Lab Interpretation Abnormal (test code = 75835-4) [facility] CenterPhosphorus [id number] 02:48:49 Test Item Value Reference Range Interpretation Comments PHOSPHORUS (test code = 4774992551) 4.4 mg/dL 2.5-5.0 Lab Interpretation (test code = Normal 74318-9) [facility] CenterLACTATE [id number] 02:48:49 Test Item Value Reference Range Interpretation Comments LDH (test code = 6230320654) 186 U/L 120-246 Lab Interpretation (test code = Normal 17130-3) [facility] CenterHEPATIC FUNCTION PANEL (69200) (ALB,T.PRO,BILI T,BU/BC,ALT,AST,ALK PHOS)2023-01-28 02:48:49 Test Item Value Reference Range Interpretation Comments TOTAL BILI (test code = 8790494649) 0.3 mg/dL 0.1-1.1 BILI UNCON (test code = 5783562828) 0.0 mg/dL 0.1-1.1 L BILI CONJ (test code = 0193059422) 0.0 mg/dL 0.0-0.3 T PROTEIN (test code = 8047584721) 6.6 g/dL 6.3-8.2 ALBUMIN (test code = 4823404946) 4.0 g/dL 3.5-5.0 ALK PHOS (test code = 0261570926) 56 U/L 34-122 ALTv (test code = 1742-6) 57 U/L 5-35 H AST(SGOT) (test code = 3770244668) 94 U/L 13-40 H Lab Interpretation (test code = Abnormal 41216-4) [facility] WITH [id number] 02:44:55 Test Item Value Reference Range Interpretation Comments WBC (test code = 3.71 See_Comment L [Automated 6690-2) message] The sy stem which generated this result transmitted reference range : 4.30 - 11.10 10*3/?L. The reference range was not used to interpret this result as normal/abnormal . RBC (test code = 3.86 See_Comment L [Automated 789-8) message] The sy stem which generated this result transmitted reference range : 3.93 - 5.25 10*6/?L. The reference range was not used to interpret this result as normal/abnormal . HGB (test code = 12.1 g/dL 11.6-15.0 718-7) HCT (test code = 34.8 % 35.7-45.2 L 4544-3) MCV (test code = 90.2 fL 80.6-95.5 787-2) MCH (test code = 31.3 pg 25.9-32.8 785-6) MCHC (test code = 34.8 g/dL 31.6-35.1 786-4) RDW-SD (test code = 42.8 fL 39.0-49.9 48612-9) RDW-CV (test code = 13.1 % 12.0-15.5 788-0) PLT (test code = 119 See_Comment L [Automated 777-3) message] The sy stem which generated this result transmitted reference range : 166 - 358 10*3/ ?L. The reference r criselda was not used to interpret this result as normal/abnormal . MPV (test code = 12.3 fL 9.5-12.9 54893-5) IPF % (test code = 10.0 % 1.3-7.7 H Platelet count 0012230740) measured by fluorescence method. NRBC/100 WBC (test 0.0 See_Comment [Automat ed code = 0799541578) message] The system which generated this result transmitted reference range : 0.0 - 10.0 /100 WBCs. The refer ence range was not u sed to interpret th is result as normal/abnormal . NRBC x10^3 (test code See_Comment [Auto mated = 7886966281) message] The s ystem which generated this result transmitted reference range : 10*3/?L. The reference range was not used to interpret this result as normal/abnormal . GRAN MAT (NEUT) % 87.8 % (test code = 770-8) IMM GRAN % (test code 0.30 % = 5264089259) LYMPH % (test code = 3.8 % 736-9) MONO % (test code = 7.0 % 5905-5) EOS % (test code = 0.8 % 713-8) BASO % (test code = 0.3 % 706-2) GRAN MAT x10^3(ANC) 3.26 10*3/uL 1.88-7.09 (test code = 8192568529) IMM GRAN x10^3 (test 0.00-0.06 code = 2717832304) LYMPH x10^3 (test code 0.14 10*3/uL 1.32-3.29 L = 731-0) MONO x10^3 (test code 0.26 10*3/uL 0.33-0.92 L = 742-7) EOS x10^3 (test code = 0.03 10*3/uL 0.03-0.39 711-2) BASO x10^3 (test code 0.01-0.07 = 704-7) BANDS (test code = Increased A 3706085220) Lab Interpretation Abnormal (test code = 61963-5) [facility] CenterProthrombin Time / [id number] 02:13:42 Test Item Value Reference Range Interpretation Comments PROTIME PATIENT (test 12.2 See_Comment [Auto mated message] code = 5964-2) The system [employer] generated this result transmitted ref erence range: 10.1 - 1 2.6 Seconds. The re ference range was not u sed to interpret this result as normal/abnor mal. INR (test code = 6301-6) 1.1 Nor mal INR <1.1; Warfarin Therap eutic range 2.0 to 3. 0 or 2.5 to 3.5, dep ending upon the indica tions. Lab Interpretation (test Normal code = 46522-0) [facility] CenteraPTT2023-03-07 02:13:42 Test Item Value Reference Range Interpretation Comments APTT Patient (test code = 33 See_Comment [ Automated message] 3173-2) The system [employer] h generated this result transmitted ref erence range: 26 - 36 Seconds. The re ference range was not u sed to interpret this result as normal/abnor mal. Lab Interpretation (test Normal code = 62865-4) [facility] CenterThroat Streptococcus pyogenes antigen [id number] 14:00:00 Test Item Value Reference Range Interpretation Comments Group A Streptococcus Screen (test NEGATIVE NEGATIVE code = 62919-2) [facility] # [id number] 19:56:00 Test Item Value Reference Range Interpretation Comments Absolute CD4 Count (test code = 1 430-6140 42139-3) [facility] HealthUrine color isiihumrdgnbw8115-95-96 18:19:00 Test Item Value Reference Range Interpretation Comments Urine Color (test code = 5778-6) YELLOW [facility] HealthManual urine appearance vyxalbachhwuy8861-21-78 18:19:00 Test Item Value Reference Range Interpretation Comments Urine Appearance (test code = 5767-9) Cloudy [facility] HealthUrine pH measurement by test [id number] 18:19:00 Test Item Value Reference Range Interpretation Comments Urine pH (test code = 5803-2) 6.0 5.0-8.0 [facility] HealthSp Gr Ur Jzoyw5368-05-20 18:19:00 Test Item Value Reference Range Interpretation Comments Urine Specific [place] (test code = 1.018 1.005-1.030 5811-5) [facility] HealthUrine protein measurement by automated test strip (mass/volume) 2022-04-28 18:19:00 Test Item Value Reference Range Interpretation Comments Urine Protein (test code = 73917-7) 1+ NEGATIVE [facility] HealthUrine glucose measurement by [...] Occult Blood (test code = NEGATIVE NEGATIVE 35181-7) [facility] HealthUrine nitrite detection by automated test [id number] 18:19:00 Test Item Value Reference Range Interpretation Comments Urine Nitrite (test code = 50372-5) POSITIVE NEGATIVE [facility]Urine total bilirubin detection by test hmrke0705-17-98 18:19:00 Test Item Value Reference Range Interpretation Comments Urine Bilirubin (test code = 5770-3) NEGATIVE NEGATIVE [facility] HealthUrine urobilinogen measurement by test strip (mass/volume) 2022-04-28 18:19:00 Test Item Value Reference Range Interpretation Comments Urine Urobilinogen (test code = 1+ 0.2-1.0 47231-2) [facility] HealthUrine leukocyte esterase detection by levxucqk7760-07-49 18:19:00 Test Item Value Reference Range Interpretation [...] Interpretation Comments Urine RBC (test code = 05399-8) 5 0-2 [facility] HealthAutomated leukocytes count in urine sediment by microscopy high power field (number/area)2022-04-28 18:19:00 Test Item Value Reference Range Interpretation Comments Urine WBC (test code = 5821-4) 64 0-5 [facility] HealthUrine sediment leukocyte clump count by microscopy (number/high power field)2022-04-28 18:19:00 Test Item Value Reference Range Interpretation Comments Urine WBC Clumps (test code = OCCASIONAL Negative 38427-5) [facility] HealthAutomated squamous epithelial cells count in urine sediment by microscopy low power field (number/area)2022-04-28 18:19:00 Test Item Value Reference Range Interpretation Comments Urine Squamous Epithelial Cells (test 16 0-5 code = 71098-0) [facility] HealthBacteria detection in urine sediment by light microscopy 2022-04-28 18:19:00 Test Item Value Reference Range Interpretation Comments Urine Bacteria (test code = 46468-7) 3+ NONE SEEN [facility] HealthUrine sediment mucus count by microscopy (number/low power field) 2022-04-28 18:19:00 Test Item Value Reference Range Interpretation Comments Urine Mucus (test code = 61114-6) 2+ NONE [facility] QBP-[id number] 18:19:00 Test Item Value Reference Range Interpretation Comments Urine Culture Indicated (test code = YES 8265-1) [facility] [id number] 18:19:00 Test Item Value Reference Range Interpretation Comments Urine Culture Reflexed YES, C&S INDICATED (test code = 8266-9) [facility] HealthUrn Spec Collect Meth [id number] 18:19:00 Test Item Value Reference Range Interpretation Comments Urine Collection Type (test code = VOIDED 00123-5) [facility] HealthBacterial urine [id number] 18:19:00 Test Item Value Reference Range Interpretation Comments Urine Culture (test Staphylococcus code = 630-4) saprophyticus [facility] HealthAutomated blood leukocyte count (number/volume)2022-04-28 17:05:00 Test Item Value Reference Range Interpretation Comments White Blood Count (test code = 6690-2) 3.6 3.6-11.2 [facility] HealthBlood erythrocytes automated count (number/volume)2022-04-28 17:05:00 Test Item Value Reference Range Interpretation Comments Red Blood Count (test code = 789-8) 3.55 3.63-4.92 [facility] HealthBlood hemoglobin measurement (mass/volume)2022-04-28 17:05:00 Test Item Value Reference Range Interpretation Comments Hemoglobin (test code = 718-7) 10.8 10.9-14.3 [facility] HealthAutomated blood hematocrit (volume fraction)2022-04-28 17:05:00 Test Item Value Reference Range Interpretation Comments Hematocrit (test code = 4544-3) 32.4 31.2-41.9 [facility] HealthAutomated erythrocyte mean corpuscular volume (MCV) measurement 2022-04-28 17:05:00 Test Item Value Reference Range Interpretation Comments Mean Corpuscular Volume (test code = 91.1 78-102 787-2) [facility] HealthAutomated erythrocyte mean corpuscular hemoglobin (mass per erythrocyte)2022-04-28 17:05:00 Test Item Value Reference Range Interpretation Comments Mean Corpuscular Hemoglobin (test code 30.4 26-34 = 785-6) [facility] HealthAutomated erythrocyte mean corpuscular hemoglobin concentration (MCHC) measurement (mass/volume)2022-04-28 17:05:00 Test Item Value Reference Range Interpretation Comments Mean Corpuscular Hemoglobin Concent 33.4 31-35 (test code = 786-4) [facility] HealthAutomated erythrocyte distribution width [id number] 17:05:00 Test Item Value Reference Range Interpretation Comments Red Cell Distribution Width (test code 12.6 12.5-14.5 = 788-0) [facility] HealthAutomated blood platelet count (count/volume)2022-04-28 17:05:00 Test Item Value Reference Range Interpretation Comments Platelet Count (test code = 777-3) 242 130-400 [facility] HealthAutomated blood platelet mean volume mdmqkicuskd8336-09-37 17:05:00 Test Item Value Reference Range Interpretation Comments Mean Platelet Volume (test code = 9.0 7.4-10.4 84767-6) [facility] HealthAutomated blood neutrophil count as percentage of total cqwrzvixlo4355-39-51 17:05:00 Test Item Value Reference Range Interpretation Comments Neutrophils (%) (Auto) (test code = 84.9 43.3-76.6 770-8) [facility] HealthAutomated blood lymphocyte count as percentage of total fjxxyjipgy0101-77-61 17:05:00 Test Item Value Reference Range Interpretation Comments Lymphocytes (%) (Auto) (test code = 8.8 16-43.5 736-9) [facility] HealthAutomated blood monocyte count as percentage of total leukocytes 2022-04-28 17:05:00 Test Item Value Reference Range Interpretation Comments Monocytes (%) (Auto) (test code = 5.0 4.5-12.5 5905-5) [facility] HealthAutomated blood eosinophil count as percentage of total ofqmgpnrzi2412-27-23 17:05:00 Test Item Value Reference Range Interpretation Comments Eosinophils (%) (Auto) (test code = 1.2 0.6-7.9 713-8) [facility] HealthAutomated blood basophil count as percentage of total leukocytes 2022-04-28 17:05:00 Test Item Value Reference Range Interpretation Comments Basophils (%) (Auto) (test code = 0.1 0.2-1.4 706-2) [facility] HealthAutomated blood neutrophil count (number/volume)2022-04-28 17:05:00 Test Item Value Reference Range Interpretation Comments Neutrophils # (Auto) (test code = 3.00 1.8-7.8 751-8) [facility] HealthAutomated blood lymphocyte count (number/volume)2022-04-28 17:05:00 Test Item Value Reference Range Interpretation Comments Lymphocytes # (Auto) (test code = 0.30 1.0-3.0 731-0) [facility] HealthAutomated blood monocyte count (number/volume)2022-04-28 17:05:00 Test Item Value Reference Range Interpretation Comments Monocytes # (Auto) (test code = 742-7) 0.20 0.3-1.0 [facility] HealthAutomated blood eosinophil [id number] 17:05:00 Test Item Value Reference Range Interpretation Comments Eosinophils # (Auto) (test code = 0.00 0.0-0.5 711-2) [facility] HealthAutomated blood basophil count (number/volume)2022-04-28 17:05:00 Test Item Value Reference Range Interpretation Comments Basophils # (Auto) (test code = 704-7) 0.00 0.0-0.1 [facility]Pro[facility] in platelet poor uvvmix3709-95-55 17:05:00 Test Item Value Reference Range Interpretation Comments Prothrombin Time (test code = 5902-2) 12.0 9.4-12.5 [facility] HealthINR in Platelet poor plasma by Coagulation xoatz1956-06-25 17:05:00 Test Item Value Reference Range Interpretation Comments Prothromb Time International Ratio 1.0 1.0-1.4 (test code = 6301-6) [facility] HealthPartial thromboplastin time (PTT) in platelet poor plasma 2022-04-28 17:05:00 Test Item Value Reference Range Interpretation Comments Activated Partial Thromboplast Time 27.7 25.1-36.5 (test code = 21961-2) [facility] HealthSerum or plasma sodium measurement (moles/volume)2022-04-28 17:05:00 Test Item Value Reference Range Interpretation Comments Sodium Level (test code = 2951-2) 138 136-145 [facility] HealthSerum or plasma potassium measurement (moles/volume)2022-04-28 17:05:00 Test Item Value Reference Range Interpretation Comments Potassium Level (test code = 2823-3) 3.6 3.5-5.1 [facility] HealthSerum or plasma chloride measurement (moles/volume)2022-04-28 17:05:00 Test Item Value Reference Range Interpretation Comments Chloride Level (test code = 2075-0) 105 101-111 [facility] HealthCO2 TzoWb-oLuf6655-95-05 17:05:00 Test Item Value Reference Range Interpretation Comments Carbon Dioxide Level (test code = 2027-9) [facility] HealthSerum or plasma anion gap determination (moles/volume)2022-04-28 17:05:00 Test Item Value Reference Range Interpretation Comments Anion Gap (test code = 25884-8) 7.0 6-14 [facility] HealthSerum or plasma urea nitrogen measurement (mass/volume)2022-04-28 17:05:00 Test Item Value Reference Range Interpretation Comments Blood Urea Nitrogen (test code = 06-17 3094-0) [facility] HealthSerum or plasma creatinine measurement (mass/volume)2022-04-28 17:05:00 Test Item Value Reference Range Interpretation Comments Creatinine (test code = 2160-0) 0.6 0.6-1.2 [facility] HealthGFR/BSA pred.black SerPlBld BJEW-OlYLte6402-30-05 17:05:00 Test Item Value Reference Range Interpretation Comments Estimated GFR () (test >60 code = 49024-2) [facility] HealthEGFR non- Vvslvewi9647-40-13 17:05:00 Test Item Value Reference Range Interpretation Comments Estimated GFR (Non- >60 (test code = 44498-2) [facility] HealthSerum or plasma glucose measurement (mass/volume)2022-04-28 17:05:00 Test Item Value Reference Range Interpretation Comments Glucose Level (test code = 2345-7) 72 70-110 [facility] HealthSerum or plasma calcium measurement (mass/volume)2022-04-28 17:05:00 Test Item Value Reference Range Interpretation Comments Calcium Level (test code = 36075-9) 9.6 8.6-10.3 [facility] HealthSerum or plasma total [...] 23 14-54 (test code = 1742-6) [facility] HealthSerum or plasma protein measurement (mass/volume)2022-04-28 [...] Phosphatase (test code = 77 34-104 6768-6) MEGAN BarbozaLactate PqtGa-hJbi3454-32-05 17:05:00 Test Item Value Reference Range Interpretation Comments Lactic Acid Level (test code = 2524-7) 0.7 0.5-2.0 MEGAN HealthBacterial blood qvzkgjm3561-35-14 17:05:00 Test Item Value Reference Range Interpretation Comments Blood Culture (test No growth after 5 days code = 600-7) [facility] [id number] 19:31:00 Test Item Value Reference Range Interpretation Comments CULTURE (BEAKER) (test No acid-fast bacilli code = 1095) isolated in 42 days BLOOD CULTURE, AFB [id number] 19:31:00 Test Item Value Reference Range Interpretation Comments CULTURE (BEAKER) (test No acid-fast bacilli code = 1095) isolated in 42 days
--- NOTE | 2023-05-15 08:26 | RAD REPORT ---
EXAM DESCRIPTION: CT - Head Brain Wo Cont - 05/15/2023 8:20 am CLINICAL HISTORY: Alteration of awareness/confusion COMPARISON: 2015 TECHNIQUE: Computed axial tomography of the head was obtained. IV contrast was not requested. All CT scans are performed using dose optimization technique as appropriate and may include automated exposure control or mA/KV adjustment according to patient size. FINDINGS: An intracranial bleed is not seen The ventricles are normal in caliber No extra-axial fluid collection is noted. 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 1.8 centimeter low-density a xavi left thalamus extending into the left internal capsule probably old infarction. Fluid within the sinuses/ mastoids is not seen. IMPRESSION: No acute intracranial abnormality is seen If patient's symptoms persist MRI of the brain would be recommended
--- NOTE | 2023-05-15 09:19 | RAD REPORT ---
EXAM DESCRIPTION: Mallorie Single View05/15/2023 9:09 am CLINICAL HISTORY: malaise, diarrhea, confusion COMPARISON: 2016 FINDINGS: The lungs appear clear of acute infiltrate. The heart is normal size IMPRESSION: No acute abnormalities displayed
[2023-05-15 10:04] LABS: Absolute Lymphocytes (CBC) 0.2 K/uL (0.7-4.9); Hematocrit 32.8 % (36.0-45.0); Lymphocytes % 2.8 % (15.3-44.8); MCV 91.7 fL (80-100); MPV 8.1 fL (7.6-11.3); RBC Red Blood Cell Count 3.58 M/uL (3.86-4.86)
[2023-05-15 10:14] LABS: Protime INR 0.98
[2023-05-15 10:21] LABS: Albumin 3.5 g/dL (3.4-5.0); Bilirubin Total 0.2 mg/dL (0.2-1.0); Potassium 3.2 mEq/L (3.5-5.1); Protein, Total 7.7 g/dL (6.4-8.2)
[2023-05-15] MEDS ORDERED: POTASSIUM CL SA 10 MEQ TAB PO ONE ×2 (10:44→19:01)
[2023-05-15] MEDS ORDERED: NA CHLORIDE 0.9% 1,000 ML ONE (10:48)
[2023-05-15 11:15] LABS: Specific Gravity < 1.005 (1.005-1.030); Urine Bacteria <20 /HPF (<20); Urine Bilirubin NEGATIVE (Negative); Urine Blood Negative (Negative); Urine Clarity Turbid (Clear); Urine Color Colorless (Yellow); Urine Glucose NEGATIVE (Negative); Urine Protein NEGATIVE (Negative); Urine RBC <5 /HPF (None Seen); Urine Urobilinogen Normal (Normal)
--- NOTE | 2023-05-15 11:56 | EDPHYS ---
Physician Documentation [facility] Name: María Sosa Age: 32 yrs Sex: Female : 1990 Arrival Date: 05/15/2023 Time: 07:55 Bed 19 Private MD: ED Physician Keenan Cedeno HPI: 05/15 08:59 This 32 yrs old Female presents to ER via EMS with complaints of Diarrhea. kb 08:59 EMS reports they were called out for pt having diarrhea and grandmother states she kb cannot take care of patient anymore. EMS is not sure of normal mentation or how long diarrhea has been going on. States grandmother was only concerned about the diarrhea and it did not appear that grandmother was concerned about pt's actions/speech. Pt reports diarrhea started yesterday and she doesn't have the urge to go anymore. States "I had diarrhea, but it's done. I don't know why I had to come here." Denies fever, nausea, vomiting, abd pain. . Historical: - Allergies: 08:09 tramadol; ko1 - Home Meds: 12:04 ethambutol oral [Active]; ritonavir oral [Active]; atazanavir oral [Active]; ko1 Fluconazole Oral [Active]; Enteric Coated Aspirin Oral [Active]; - PMHx: 08:09 HIV; ko1 - Immunization history:: Adult Immunizations unknown. - Social history:: Smoking status: Patient/guardian denies using tobacco. ROS: 08:42 Constitutional: Negative for fever, chills, and weight loss. kb 08:42 Abdomen/GI: Positive for diarrhea, Negative for abdominal pain, nausea and vomiting. 08:42 All other systems are negative. Exam: 08:58 Head/Face: Normocephalic, atraumatic. ENT: Moist Mucous membranes Cardiovascular: kb Regular rate and rhythm with a normal S1 and S2. No gallops, murmurs, or rubs. No pulse deficits. Respiratory: Respirations even and unlabored. No increased work of breathing. Talking in full sentences Abdomen/GI: Soft, non-tender. No distention Skin: Warm, dry with normal turgor. Normal color. MS/ Extremity: Pulses equal, no cyanosis. Neurovascular intact. Full, normal range of motion. 08:58 Constitutional: The patient appears alert, awake, non-toxic, emaciated. 08:58 Neuro: Orientation: to person, place, time, situation, Mentation: able to follow commands, Memory: is normal, pt is awake, alert and oriented. Pt does have trouble collecting thoughts. States "I can't think completely, but that's normal now." . 09:14 ECG was reviewed by the Attending Physician. Vital Signs: 08:05 BP 106 / 82; Pulse 74; Resp 16; Temp 97.7(O); Pulse Ox 99% ; ko1 09:18 BP 101 / 78; Pulse 60; Resp 16; Pulse Ox 99% ; ko1 10:00 BP 93 / 70; Pulse 63; Resp 15; Pulse Ox 99% ; ko1 11:26 BP 99 / 68; Pulse 69; Resp 16; Pulse Ox 98% ; ko1 11:46 Weight 35.38 kg; Height 5 ft. 4 in. ; ko1 11:46 Body Mass Index 13.39 (35.38 kg, 162.56 cm) ko1 MDM: 08:00 Patient medically screened. kb 08:41 Data reviewed: vital signs, nurses notes. Historians other than the Patient: EMS: [facility]. 11:46 Differential diagnosis: gastritis, electrolyte abnormality, dehydration, FTT, kb generalized weakness. Consideration of Admission/Observation Patient was admitted/placed on observation. 11:54 Management of patient was discussed with the following: Hospitalist: Dr Jarrett accepts pt for admission. Counseling: I had a detailed discussion with the patient and/or guardian regarding: the historical points, exam findings, and any diagnostic results supporting the discharge/admit diagnosis, lab results, radiology results, the need for further work-up and treatment in the hospital. 05/15 08:13 Order name: Blood Culture Adult (2) 05/15 08:13 Order name: CBC with Diff; Complete Time: 12:33 kb 05/15 08:13 Order name: CMP; Complete Time: 10:22 kb 05/15 08:13 Order name: Lactate w/ 2H reflex if indic.; Complete Time: 09:54 kb 05/15 08:13 Order name: Protime (+inr); Complete Time: 10:14 kb 05/15 08:13 Order name: Ptt, Activated; Complete Time: 10:14 kb 05/15 08:13 Order name: Urinalysis w/ reflexes; Complete Time: 11:31 kb 05/15 09:21 Order name: Glucose, Ancillary Testing; Complete Time: 09:26 EDMS 05/15 10:11 Order name: CBC Smear Scan; Complete Time: 12:33 EDMS 05/15 12:43 Order name: Thyroid Stimulating Hormone EDMS 05/15 12:43 Order name: Urinalysis w/ reflexes EDMS 05/15 12:43 Order name: CBC with Automated Diff EDMS 05/15 12:43 Order name: CBC with Automated Diff EDMS 05/15 12:43 Order name: Comprehensive Metabolic Panel EDMS 05/15 12:43 Order name: Comprehensive Metabolic Panel EDMS 05/15 12:43 Order name: Magnesium EDMS 05/15 12:43 Order name: Magnesium EDMS 05/15 12:43 Order name: Phosphorus EDMS 05/15 12:43 Order name: Phosphorus EDMS 05/15 12:43 Order name: Protime (+INR) EDMS 05/15 12:43 Order name: Protime (+INR) EDMS 05/15 12:44 Order name: Miscellaneous Test Lab EDMS 05/15 12:53 Order name: Calprotectin, Stool EDMS 05/15 12:53 Order name: Fecal Leukocyte Stain EDMS 05/15 12:53 Order name: Ova and Parasites EDMS 05/15 12:53 Order name: Stool Culture EDMS 05/15 14:06 Order name: Magnesium; Complete Time: 14:09 EDMS 05/15 08:13 Order name: Chest Single View XRAY; Complete Time: 09:26 kb 05/15 08:13 Order name: CT Head Brain wo Cont; Complete Time: 08:27 kb 05/15 08:13 Order name: EKG; Complete Time: 08:14 kb 05/15 12:42 Order name: CONS Physician Consult EDMS 05/15 12:43 Order name: Regular EDMS 05/15 12:46 Order name: Physical Therapy Consult EDMS 05/15 08:13 Order name: Accucheck; Complete Time: 09:04 kb 05/15 08:13 Order name: Cardiac monitoring; Complete Time: 08:30 kb 05/15 08:13 Order name: EKG - Nurse/Tech; Complete Time: 09:03 kb 05/15 08:13 Order name: IV Saline Lock - Large Bore; Complete Time: 09:21 kb 05/15 08:13 Order name: Labs collected and sent; Complete Time: :21 kb 05/15 08:13 Order name: O2 Per Protocol; Complete Time: 08:30 kb 05/15 08:13 Order name: O2 Sat Monitoring; Complete Time: 08:30 kb 05/15 08:13 Order name: Vital Signs; Complete Time: 08:30 kb 05/15 09:37 Order name: Labs - recollect needed: please recollect all tubes . thank you; Complete bc6 Time: :57 EC:14 Rate is 62 beats/min. Rhythm is regular. QRS [place] is Normal. WA interval is normal at kb 150 msec. QRS interval is normal at 94 msec. QT interval is normal at 426 msec. Administered Medications: 10:46 Drug: Potassium Chloride PO 40 mEq Route: PO; ko1 10:46 Drug: NS 0.9% IV 1000 ml Route: IV; Rate: 1000 ml; Site: left antecubital; ko1 Disposition: 15:21 Co-signature as Attending Physician, Keenan Cedeno MD I agree with the assessment and kdr plan of care. Disposition Summary: 05/15/23 11:55 Hospitalization Ordered Hospitalization Status: Inpatient Admission kb Provider: Henri Jarrett Location: Telemetry/MedSur (Inpatient) kb Condition: Stable kb Problem: new kb Symptoms: are unchanged kb Bed/Room Type: [facility] Room Assignment: [facility](05/15/23 13:29) ss Diagnosis - Weakness kb - Adult failure to thrive kb Forms: - Medication Reconciliation Form kb - SBAR form kb Signatures: Dispatcher [employer] Rashida Hightower, FIDE-C FIDE-Keenan Aponte MD MD kdr Kary Blanchard RN RN ss Renuka Campo RN RN ko1 [place] bc6 Corrections: (The following items were deleted from the chart) 13:29 11:55 kb ss
--- NOTE | 2023-05-15 11:56 | ER ---
Nurse's Notes [facility] Name: María Sosa Age: 32 yrs Sex: Female : 1990 Arrival Date: 05/15/2023 Time: 07:55 Bed 19 Private MD: Diagnosis: Weakness;Adult failure to thrive Presentation: 05/15 08:05 Chief complaint: EMS states: patients grandmother called stating she could not take ko1 care of the patient and she needed to be taken to the hospital. She has been having a lot of diarrhea, she was seen at the hospital last week for the diarrhea and they told her it would get worse. Coronavirus screen: At this time, the client does not indicate any symptoms associated with coronavirus-19. Ebola Screen: No symptoms or risks identified at this time. Initial Sepsis Screen: Does the patient meet any 2 criteria? No. Patient's initial sepsis screen is negative. Does the patient have a suspected source of infection? No. Patient's initial sepsis screen is negative. Risk Assessment: Do you want to hurt yourself or someone else? Patient reports no desire to harm self or others. Onset of symptoms is unknown. 08:05 Method Of Arrival: EMS: [facility] ko1 08:05 Acuity: KAYLAH 3 ko1 Triage Assessment: 08:09 General: Appears in no apparent distress. comfortable, Behavior is calm, cooperative, ko1 appropriate for age. Pain: Denies pain. Historical: - Allergies: 08:09 tramadol; ko1 - Home Meds: 12:04 ethambutol oral [Active]; ritonavir oral [Active]; atazanavir oral [Active]; ko1 Fluconazole Oral [Active]; Enteric Coated Aspirin Oral [Active]; - PMHx: 08:09 HIV; ko1 - Immunization history:: Adult Immunizations unknown. - Social history:: Smoking status: Patient/guardian denies using tobacco. Screenin:15 [facility] ED Fall Risk Assessment (Adult) History of falling in the last 3 months, ko1 including since admission No falls in past 3 months (0 pts) Confusion or Disorientation No (0 pts) Intoxicated or Sedated No (0 pts) Impaired Gait Mobility Assist Device Used Yes (1 pt) Altered Elimination Yes (1 pt) Score/Fall Risk Level 3 or more points = High Risk Oriented to surroundings, Maintained a safe environment, Educated pt \T\ family on fall prevention, incl call for assistance when getting out of bed, Assessed \T\ reinforced patient's understanding of fall precautions, Provided non-skid footwear, Hourly rounding (assess needs \T\ fall precautionary measures) done, Used ambulatory aids as needed (educated on \T\ assisted with), Used gait belt as appropriate Implemented a Fall Risk Plan of Care, Apply high fall risk patient identification: yellow non skid footwear/ fall signage, Remained w/in arm's length of patient and in sight while toileting, Offered frequent toileting (1:1 observation), Remained with patient while ambulating, Utilized family, sitter, or virtual bakeshop cleaner as indicated. Abuse screen: Denies threats or abuse. Denies injuries from another. Nutritional screening: No deficits noted. Tuberculosis screening: No symptoms or risk factors identified. Assessment: 08:15 General: Appears in no apparent distress. comfortable, Behavior is calm, cooperative, ko1 appropriate for age. General: Appears emaciated. Pain: Denies pain. Neuro: No deficits noted. Cardiovascular: No deficits noted. Respiratory: No deficits noted. GI: Reports diarrhea. : No deficits noted. EENT: No deficits noted. Derm: No deficits noted. Musculoskeletal: No deficits noted. Vital Signs: 08:05 BP 106 / 82; Pulse 74; Resp 16; Temp 97.7(O); Pulse Ox 99% ; ko1 09:18 BP 101 / 78; Pulse 60; Resp 16; Pulse Ox 99% ; ko1 10:00 BP 93 / 70; Pulse 63; Resp 15; Pulse Ox 99% ; ko1 11:26 BP 99 / 68; Pulse 69; Resp 16; Pulse Ox 98% ; ko1 11:46 Weight 35.38 kg; Height 5 ft. 4 in. ; ko1 11:46 Body Mass Index 13.39 (35.38 kg, 162.56 cm) ko1 ED Course: 07:59 Patient arrived in ED. ko1 08:00 Rashida Liz FNP-C is PHCP. kb 08:00 Keenan Cedeno MD is Attending Physician. kb 08:00 Renuka Campo RN is Primary Nurse. ko1 08:09 Triage completed. ko1 08:09 Arm band placed on right wrist. Patient placed in an exam room, on a stretcher, on ko1 pulse oximetry, Patient notified of wait time. 08:15 Patient has correct armband on for positive identification. Fall risk band placed. ko1 Placed in gown. Bed in low position. Call light in reach. Side rails up X2. Allergy band placed. Client placed on continuous cardiac and pulse oximetry monitoring. NIBP monitoring applied. athletic monitor on. Door closed. Noise minimized. Warm blanket given. 08:20 CT Head Brain wo Cont In Process Unspecified. EDMS 09:08 Chest Single View XRAY In Process Unspecified. EDMS 09:21 CBC with Diff Sent. ko1 09:21 CMP Sent. ko1 09:21 Lactate w/ 2H reflex if indic. Sent. ko1 09:21 Protime (+inr) Sent. ko1 09:21 Ptt, Activated Sent. ko1 09:57 Blood Culture Adult (2) Sent. ko1 09:57 CBC with Diff Sent. ko1 09:57 CMP Sent. ko1 09:57 Protime (+inr) Sent. ko1 09:57 Ptt, Activated Sent. ko1 10:30 CBC Smear Scan Sent. ko1 11:04 Inserted saline lock: 22 gauge in right upper arm, using aseptic technique. ll1 11:55 Henri Jarrett MD is Hospitalizing Provider. kb 14:45 No provider procedures requiring assistance completed. Patient admitted, IV remains in ko1 place. Administered Medications: 10:46 Drug: Potassium Chloride PO 40 mEq Route: PO; ko1 10:46 Drug: NS 0.9% IV 1000 ml Route: IV; Rate: 1000 ml; Site: left antecubital; ko1 Medication: 14:45 VIS not applicable for this client. ko1 Outcome: 11:55 Decision to Hospitalize by Provider. kb 14:45 Admitted to Med/surg accompanied by tech, via stretcher, room 402, with chart, Report ko1 called to jarred 14:45 Condition: stable 14:45 Instructed on the need for admit. 14:46 Patient left the ED. ko1 Signatures: Dispatcher [employer] EDRashida Barros, OTOLOGIST-Dario ELIZALDE-Bri Mullen RN RN ll1 Renuka Campo RN RN ko1
[2023-05-15 12:29] LABS: Blood Morphology Comment NOT SEEN (NOT SEEN); Platelet Estimate ADEQ; White Blood Cell Scan OK (OK)
--- NOTE | 2023-05-15 12:50 | P.HP ---
Certification for Inpatient Patient admitted to: Observation With expected LOS: <2 Midnights Practitioner: I am a practitioner with admitting privileges, knowledge of patient current condition, hospital course, and medical plan of care. Services: Services provided to patient in accordance with Admission requirements found in Title 42 Section 412.3 of the Code of Federal Regulations Patient History Date of Service: 05/15/23 Reason for admission: Failure to Thrive History of Present Illness: Ms. María Sosa is a 32-year-old female who has a past medical history of chronic human immunodeficiency virus infection who presents to the [facility] Emergency Department for generalized weakness and diarrhea. She was brought into the Emergency Department due to generalized weakness and diarrhea. Per SHAHEED Liz, her grandmother brought her due to inability to care for her at home. On exam, she is alert and oriented x1 to self only. She is able to state that she has had diarrhea, but is unable to provide any further history. No family is available at bedside for collateral history. She denies any fevers, chills, chest pain, or shortness of breath. She was brought to the Emergency Department for further evaluation. Upon presentation, her vital signs were notable for a blood pressure of 99/68. Her laboratory studies were notable for a lymphocyte percentage of 2.8 %, potassium of 3.2, an AST of 56, and an ALT of 62. Blood cultures x 2 were obtained. Her chest x-ray revealed, "no acute abnormalities displayed." Her CT head revealed, "no acute intracranial abnormality is seen." In the Emergency Department, she was given 1 L Normal Saline and potassium chloride. She was admitted to the General Internal Medicine service for further evaluation. Allergies No Known Drug Allergies Allergy (Unverified 11/01/14 20:43) Unknown Home medications list reviewed: Yes (unable to confirm doses) Home Medications: Atazanavir Sulfate [Reyataz] 300 mg PO DAILY 08/17/13 Emtricitabine/Tenofovir [Truvada 200 mg-300 mg Tablet] 1 each PO DAILY 08/17/13 Ritonavir [Norvir] 100 mg PO DAILY 08/17/13 Mupirocin Calcium [Bactroban] 15 appl TP BID #0 cream..g. 08/20/13 Sulfamethoxazole/Trimethoprim [Bactrim Ds Tablet] 1 each PO BID #20 tablet 08/20/13 traMADol HCL [Ultram*] 50 mg PO Q8HP PRN #90 tab 08/20/13 Fluconazole 100 mg PO 05/15/23 - Past Medical/Surgical History Diabetic: No -: HIV -: 2 children, 2010, 2011 -: Tubes tied, 2011 - Family History Family History: Reviewed- Non-Contributory - Social History Alcohol use: Yes CD- Drugs: No Caffeine use: Yes Review of Systems is unable to be obtained General: Weakness (generalized) Gastrointestinal: Diarrhea Neurological: Confusion Physical Examination - Vital Signs Temperature: 97.7 F Blood Pressure: 99/68 Pulse: 69 Respirations: 16 Pulse Ox (%): 98 - Physical Exam General: Alert, Oriented x1 (to self) HEENT: Atraumatic, Sclerae nonicteric Neck: JVD not distended Respiratory: Clear to auscultation bilaterally Cardiovascular: No edema, Regular rate/rhythm Gastrointestinal: Normal bowel sounds, Soft and benign, Non-distended, No tenderness, No rebound, No guarding Musculoskeletal: No clubbing Integumentary: No rashes Neurological: Normal speech, Normal affect - Studies Laboratory Data (last 24 hrs) 05/15/23 09:54: PT 10.8, INR 0.98, APTT 31.3 05/15/23 09:54: Sodium 138, Potassium 3.2 L, BUN 14, Creatinine 0.49 L, Glucose 91, Total Bilirubin 0.2, AST 56 H, ALT 62 H, Alkaline Phosphatase 92 05/15/23 09:54: WBC 6.40, Hgb 11.2 L, Hct 32.8 L, Plt Count 192 Assessment and Plan - Plan # Diarrhea in the setting of Chronic Human Immunodeficiency Virus Infection # Possible Acute Toxic Metabolic Encephalopathy due to above - mental baseline unknown # Hypokalemia due to Diarrhea - Does not currently meet sepsis criteria - There is concern that she may have progressed to AIDS - Last CD4 count unknown; however, total lymphocyte count is 179 (WBC x % lymphocytes: 6,400 x 2.8 % = 179) - Radiology: - Chest x-ray = "no acute abnormalities displayed." - CT head = "no acute intracranial abnormality is seen." - Consulted Infectious Diseases and spoke with Dr. Frank - recommendations appreciated - Recommended starting ciprofloxacin + metronidazole - He will call his colleagues (HIV specialists) at [facility] to see if transferring her to their facility would be appropriate - Ordered stool fecal leukocyte, calprotectin, culture, ova/parasites, and C. Diffile stool toxin - Plan to resume home medications once verified - Started Lactated Ringers' @ 100 mL/hr - Consulted PT Henri Jarrett M.D. - Advance Directives Does patient have a Living Will: No Does patient have a Durable POA for Healthcare: No
[2023-05-15] MEDS: Ciprofloxacin 200mg IV 200 MG/100 ML IV.SOLN. IV SCH ×2 (13:30→19:18)
[2023-05-15] MEDS: METRONIDAZOLE 500mg IVPB 500 MG/100 ML BAG IV SCH ×2 (13:30→16:27)
[2023-05-15] MEDS ORDERED: CIPROFLOXACIN 400mg IV 400 MG/200 ML BAG IV ONE (13:49)
[2023-05-15] MEDS ORDERED: METRONIDAZOLE 500mg IVPB 500 MG/100 ML BAG IV ONE (13:50)
[2023-05-15] MEDS: Ringers Lactate 1,000 ML IV SCH (14:00)
[2023-05-15] MEDS ORDERED: Ringers Lactate 1,000 ML IV ONE (14:40)
[2023-05-15 15:28] VITALS: BMI 13.4
--- NOTE | 2023-05-15 17:39 | EKG ---
Test Date: 2023-05-15 Test Time: 09:06:59 Candlemaking Laborer: YANIQUE MEASUREMENT RESULTS: Intervals: Rate: 62 WI: 150 QRSD: 94 QT: 420 QTc: 426 [place]: P: WI: 150 QRS: 122 T: 138 INTERPRETIVE STATEMENTS: Normal sinus rhythm Lateral infarct, age undetermined Abnormal ECG Compared to ECG 12/02/2016 09:56:56 Myocardial infarct finding now present Electronically Signed On 05-15-23 17:38:52 CDT by Kenyon Mullen
[2023-05-16] MEDS: METRONIDAZOLE 500mg IVPB 500 MG/100 ML BAG IV SCH ×3 (00:37→17:52)
[2023-05-16] MEDS: Ringers Lactate 1,000 ML IV SCH ×2 (00:37→12:20)
[2023-05-16 04:18] LABS: Absolute Lymphocytes (CBC) 0.3 K/uL (0.7-4.9); Hematocrit 30.6 % (36.0-45.0); Lymphocytes % 5.6 % (15.3-44.8); MCV 91.9 fL (80-100); MPV 8.8 fL (7.6-11.3); RBC Red Blood Cell Count 3.32 M/uL (3.86-4.86)
[2023-05-16 04:23] LABS: Protime INR 1.01
[2023-05-16 04:45] LABS: Albumin 2.8 g/dL (3.4-5.0); Bilirubin Total 0.2 mg/dL (0.2-1.0); Magnesium 1.9 mg/dL (1.6-2.4); Phosphorus 3.5 mg/dL (2.5-4.9); Potassium 4.4 mEq/L (3.5-5.1); Protein, Total 6.5 g/dL (6.4-8.2)
[2023-05-16] MEDS: Ciprofloxacin 200mg IV 200 MG/100 ML IV.SOLN. IV SCH (09:11)
[2023-05-16 09:46] LABS: C.diff Antigen/Toxin Ag neg : Tox neg (NEG : NEG)
--- NOTE | 2023-05-16 09:56 | P.CNS ---
Date of Consult: 05/16/23 Reason for Consult: HIV Chief Complaint: Generalized weakness and diarrhea History of Present Illness: Ms. María Sosa is a 32-year-old female who has a past medical history HIV who presented to the ED with complaints of generalized weakness and diarrhea. Upon presentation, patient was A&Ox1. Her laboratory studies were notable for a lymphocyte percentage of 2.8 %, potassium of 3.2, an AST of 56, and an ALT of 62. Blood cultures x 2 were obtained. Her chest x-ray revealed, "no acute abnormalities displayed." CT head with "no acute intracranial abnormality is seen." In the Emergency Department, she was given 1 L Normal Saline and potassium chloride. She was admitted to the for further evaluation and management. Of note, patient was recently admitted to [facility] for similar symptoms and discharged home on 05/09. Allergies No Known Drug Allergies Allergy (Verified 05/16/23 09:08) Unknown Home medications list reviewed: Yes Home Medications: Fluconazole 1 tab PO DAILY 05/15/23 Atazanavir Sulfate [Reyataz] 300 mg PO DAILY 05/16/23 Emtricitabine/Tenofovir [Truvada 200 mg-300 mg Tablet] 1 tab PO DAILY 05/16/23 Ethambutol HCl 1.5 tab PO DAILY 05/16/23 Ritonavir 100 mg PO DAILY 05/16/23 Sulfamethoxazole/Trimethoprim [Bactrim Ds Tablet] 1 each PO DAILY 05/16/23 - Past Medical/Surgical History Diabetic: No -: HIV -: 2 children, 2010, 2011 -: Tubes tied, 2011 - Social History Smoking Status: Current every day smoker Alcohol use: No CD- Drugs: No Caffeine use: Yes Place of Residence: Home Review of Systems 10-point ROS is otherwise unremarkable General: Weakness Gastrointestinal: Diarrhea Physical Examination Temp Pulse Resp BP Pulse Ox 98.3 F 47 L 16 117/78 100 05/16/23 08:00 05/16/23 08:00 05/16/23 08:00 05/16/23 08:00 05/16/23 08:00 General: In no apparent distress, Oriented x2, Cachectic, Confused HEENT: Atraumatic, Normocephalic Neck: JVD not distended Respiratory: Clear to auscultation bilaterally, Normal air movement Cardiovascular: No edema, Other (weak pedal pulses) Gastrointestinal: No rebound, No guarding, Hyperactive Musculoskeletal: No clubbing, No swelling Integumentary: No rashes Laboratory Data - Reviewed Microbiology Data - Reviewed Imagings Data: - Reviewed Inpatient Medication List Ciprofloxacin/Dextrose (Cipro 200 Mg/100 Ml Ivpb (Premix)) 200 mg in 100 mls @ 100 mls/hr IV Q12HR ABRAHAM; Protocol Last Admin: 05/16/23 09:11 Dose: 100 mls Metronidazole/Sodium Chloride (Flagyl 500mg/100 Ml Iv Premix) 500 mg in 100 mls @ 200 mls/hr IV Q8HR ABRAHAM; Protocol Last Admin: 05/16/23 09:09 Dose: 100 mls Lactated Ringer's (Lactated Ringers) 1,000 mls @ 100 mls/hr IV .Q10H ABRAHAM Stop: 05/16/23 14:01 Last Admin: 05/16/23 00:37 Dose: 1,000 mls Sodium Chloride (Flush Normal Saline 10 Ml) 10 ml IV BID ABRAHAM Last Admin: 05/16/23 09:11 Dose: 10 ml Conclusions/Impression: Problem List AIDS Progressive Multifocal Leukoencephalopathy Diarrhea Failure to Thrive Anemia Moderate protein calorie malnutrition AIDS wasting syndrome Hx pneumocystis pneumonia AIDS Progressive Multifocal Leukoencephalopathy Patient was recently discharged home from [facility] on 05/09 with diagnosis of AIDS and Progressive Multifocal Leukoencephalopathy. She was started on Biktarvy, fluconazole and Bactrim. During that admission, patient was present with diarrhea. - [facility] records from recent admission showing CD4 count of 3 on 05/05 - It is noted that patient has been non-complaint with her ART regimen. - Prophylaxis with Fluconazole and Bactrim Recommendations - HIV/AIDS: Start patient on home ART med Biktarvy if available at this facility. - If Biktarvy not available, start on Truvada 200mg-300mg tablet PO daily + Atazanavir 300mg PO daily + Ritonavir 100mg PO daily. Spoke with pharmacy at 17:04 - Continue fluconazole and Bactrim - Consider transfer to [facility] for higher level of care where she has been seen by HIV specialists. - Supportive care and nutritional support as needed. ID will follow up with patient as needed. Case discussed with Stephanie Romero
[2023-05-16] MEDS: ENSURE ENLIVE 237 ML CAN PO SCH ×2 (12:22→21:31)
[2023-05-16 17:02] LABS: Calcium Oxalate Crystals- Ur Few /HPF (None Seen); Urine Bacteria <20 /HPF (<20); Urine RBC <5 /HPF (None Seen)
[2023-05-16 17:04] LABS: Specific Gravity 1.025 (1.005-1.030); Urine Bilirubin Negative (Negative); Urine Blood Negative (Negative); Urine Clarity Clear (Clear); Urine Color Yellow (Yellow); Urine Glucose Negative (Negative)
[2023-05-16 17:05] LABS: Urine Ascorbic Acid Negative (Negative); Urine Protein Negative (Negative); Urine Urobilinogen Normal (Normal)
[2023-05-16] MEDS: SMZ./TMP. 800/160 MG TABLET PO SCH (17:51)
--- NOTE | 2023-05-16 19:02 | P.PN ---
Subjective Date of Service: 05/16/23 Chief Complaint: Generalized weakness and diarrhea This morning, she was alert and oriented x3 to person place and time. Per RN, her mental status does fluctuate. Had an extensive discussion with SHAHEED Gonzalez, who was able to review her medical records from [facility]. Evidently, she was disch arged from [facility] on 05/09/2023 and was having similar symptoms during that admission. It appears that they had recommended [facility] facility versus home health, but she declined at that time. Her CD4 count was 3. It appears that she has a history of medication noncompliance. Review of Systems 10-point ROS is otherwise unremarkable General: Weakness (generalized) Physical Examination - Vital Signs Temperature: 98.2 F Blood Pressure: 107/83 Pulse: 72 Respirations: 16 Pulse Ox (%): 96 Assessment And Plan - Plan - Physical Exam General: Alert, Oriented x3 HEENT: Atraumatic, Sclerae nonicteric Neck: JVD not distended Respiratory: Clear to auscultation bilaterally Cardiovascular: No edema, Regular rate/rhythm Gastrointestinal: Normal bowel sounds, Soft and benign, Non-distended, No tenderness, No rebound, No guarding Musculoskeletal: Severe cachexia with muscle wasting Integumentary: No rashes Neurological: Normal speech, Normal affect # 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 Frank will call his colleagues (HIV specialists) at [facility] to see if transferring her to their facility would be appropriate - Ordered stool fecal leukocyte, calprotectin, culture, ova/parasites, and C. Diffile stool toxin - Plan to resume home medications once verified - Started Lactated Ringers' @ 100 mL/hr - Nutrition consulted - Consulted PT Henri Jarrett M.D.
[2023-05-16] MEDS ORDERED: NITAZOXANIDE 500 MG TABLET PO SCH (21:00)
[2023-05-17] MEDS: METRONIDAZOLE 500mg IVPB 500 MG/100 ML BAG IV SCH ×3 (02:46→16:34)
[2023-05-17] MEDS: SMZ./TMP. 800/160 MG TABLET PO SCH (07:45)
[2023-05-17] MEDS: ENSURE ENLIVE 237 ML CAN PO SCH ×3 (07:46→21:00)
[2023-05-17] MEDS ORDERED: TENOFOVIR PO SCH (09:00)
[2023-05-17] MEDS ORDERED: EMTRICITABINE PO SCH (09:00)
[2023-05-17] MEDS: RITONAVIR 100 MG PO SCH (12:19)
--- NOTE | 2023-05-17 18:51 | P.PN ---
Subjective Date of Service: 05/17/23 Chief Complaint: Generalized weakness and diarrhea No acute events overnight. She demonstrated medical decision making capacity. However, when asked about her medical care, she states that her brother, Mr. Edwin Mann, should make decisions on her behalf. printed circuit boards contact printer, Daysi, was present with me on rounds this morning. She will call Mr. Mann to see if he has any MPOA paperwork. Otherwise, her only concern this morning is generalized weakness. She reports having right lower extremity weakness for several weeks. Appreciate PT recommendations. Plan to obtain MRI to evaluate for prior CVA on 05/19/2023 (unavailable over the weekend) Review of Systems 10-point ROS is otherwise unremarkable General: Weakness (generalized) Physical Examination - Vital Signs Temperature: 98.5 F Blood Pressure: 102/75 Pulse: 83 Respirations: 16 Pulse Ox (%): 97 Assessment And Plan - Plan - Physical Exam General: Alert, Oriented x3 HEENT: Atraumatic, Sclerae nonicteric Neck: JVD not distended Respiratory: Clear to auscultation bilaterally Cardiovascular: No edema, Regular rate/rhythm Gastrointestinal: Normal bowel sounds, Soft, Non-distended, No tenderness Musculoskeletal: Severe cachexia with muscle wasting Integumentary: No rashes Neurological: Normal speech, Normal affect # 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 Frank will call his colleagues (HIV specialists) at [facility] to see if transferring her to their facility would be appropriate - Ordered stool calprotectin, culture, ova/parasites - Fecal leukocyte and C. Diffile stool toxin - negative - Plan to resume home medications once verified - Started Lactated Ringers' @ 100 mL/hr - Nutrition consulted - Consulted PT Henri Jarrett M.D.
[2023-05-18] MEDS: METRONIDAZOLE 500mg IVPB 500 MG/100 ML BAG IV SCH ×3 (03:14→17:41)
[2023-05-18 04:34] LABS: Absolute Lymphocytes (CBC) 0.2 K/uL (0.7-4.9); Hematocrit 32.6 % (36.0-45.0); Lymphocytes % 4.7 % (15.3-44.8); MCV 91.5 fL (80-100); MPV 8.8 fL (7.6-11.3); RBC Red Blood Cell Count 3.56 M/uL (3.86-4.86)
[2023-05-18 04:59] LABS: Potassium 3.9 mEq/L (3.5-5.1)
[2023-05-18] MEDS: SMZ./TMP. 800/160 MG TABLET PO SCH (10:08)
[2023-05-18] MEDS: ENSURE ENLIVE 237 ML CAN PO SCH ×3 (10:10→21:00)
[2023-05-18] MEDS: RITONAVIR 100 MG PO SCH (10:16)
[2023-05-18] MEDS ORDERED: POTASSIUM CL SA 10 MEQ TAB PO ONE (12:31)
--- NOTE | 2023-05-18 19:08 | P.PN ---
Subjective Date of Service: 05/19/23 Chief Complaint: Generalized weakness and diarrhea No acute events overnight. Per Daysi RN, she was able to speak with her [id number], who confirmed that she does not have an MPOA. She is open placement for continued PT services. MRI brain requested, but unable to obtain over the weekend. She denies any chest pain, palpitations, or shortness of breath. Review of Systems 10-point ROS is otherwise unremarkable General: Weakness (generalized) Physical Examination - Vital Signs Temperature: 99.3 F Blood Pressure: 123/71 Pulse: 84 Respirations: 16 Pulse Ox (%): 98 Assessment And Plan - Plan - Physical Exam General: Alert, Oriented x3 HEENT: Atraumatic, Sclerae nonicteric Neck: JVD not distended Respiratory: Clear to auscultation bilaterally Cardiovascular: No edema, Regular rate/rhythm Gastrointestinal: Normal bowel sounds, Soft, Non-distended, No tenderness Musculoskeletal: Severe cachexia with muscle wasting Integumentary: No rashes Neurological: Normal speech, Normal affect # 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 Frank will call his colleagues (HIV specialists) at [facility] to see if transferring her to their facility would be appropriate - Ordered stool calprotectin, culture, ova/parasites - Fecal leukocyte and C. Diffile stool toxin - negative - Started Lactated Ringers' @ 100 mL/hr - Nutrition consulted - started Ensure TID - Consulted PT - may benefit from placement for continued PT services Henri Jarrett M.D.
[2023-05-19] MEDS: METRONIDAZOLE 500mg IVPB 500 MG/100 ML BAG IV SCH ×2 (02:44→09:28)
[2023-05-19 05:40] LABS: Absolute Lymphocytes (CBC) 0.3 K/uL (0.7-4.9); Hematocrit 34.3 % (36.0-45.0); Lymphocytes % 4.6 % (15.3-44.8); MCV 91.8 fL (80-100); MPV 8.2 fL (7.6-11.3); RBC Red Blood Cell Count 3.74 M/uL (3.86-4.86)
[2023-05-19 05:54] LABS: Potassium 4.1 mEq/L (3.5-5.1)
[2023-05-19] MEDS: RITONAVIR 100 MG PO SCH (09:25)
[2023-05-19] MEDS: SMZ./TMP. 800/160 MG TABLET PO SCH (09:29)
[2023-05-19] MEDS: ENSURE ENLIVE 237 ML CAN PO SCH ×3 (09:29→21:00)
--- NOTE | 2023-05-19 09:30 | P.PN ---
Date of Service: 05/19/23 Chief Complaint: Generalized weakness and diarrhea Subjective: Patient seen and examined at bedside. A&Ox2-3. NAD. No new or worsening complaints. No acute events reported overnight. Physical Examination Temp Pulse Resp BP Pulse Ox 97.6 F 85 18 99/65 93 05/19/23 08:00 05/19/23 08:00 05/19/23 08:00 05/19/23 08:00 05/19/23 08:00 General: In no apparent distress, Oriented x2, Cachectic HEENT: Atraumatic, Normocephalic Neck: JVD not distended Respiratory: Clear to auscultation bilaterally, Normal air movement Cardiovascular: No edema, Other (weak pedal pulses) Gastrointestinal: No rebound, No guarding, Hyperactive Musculoskeletal: No clubbing, No swelling Integumentary: No rashes Laboratory Data - Reviewed Microbiology Data - Reviewed Imagings Data: - Reviewed Medication List: Reviewed Assessment and Plan Problem List AIDS Progressive Multifocal Leukoencephalopathy Diarrhea Failure to Thrive Anemia Moderate protein calorie malnutrition AIDS wasting syndrome Hx pneumocystis pneumonia AIDS Progressive Multifocal Leukoencephalopathy Patient was recently discharged home from [facility] on 05/09 with diagnosis of AIDS and Progressive Multifocal Leukoencephalopathy. She was started on Biktarvy, fluconazole and Bactrim. - [facility] records from recent admission showing CD4 count of 3 on 05/05 - CD4 and viral load counts 05/15 pending. - It is noted that patient has been non-compliant with her ART regimen. These medications are not readily available at this facility. Attempting to get patient's home medications to hospital so she may resume ART. - Prophylaxis with Fluconazole and Bactrim Diarrhea - Fecal leukocytes 05/16: No WBCs seen - Stool culture 05/16: No salmonella, shigella or campylobacter isolated. 4+ yeast. - Stool Ova and Parasites 05/16: Pending Recommendations - HIV/AIDS: Start patient on home ART medications once available. - If Biktarvy not available, start on Truvada 200mg-300mg tablet PO daily + Atazanavir 300mg PO daily + Ritonavir 100mg PO daily. Spoke with pharmacy on 05/16 at 17:04, 17:35 and 18:02. ART medications not readily available at this facility. Patient's grandmother was able to bring some of her medications to the hospital, including Ritonavir but not Atazanavir or Truvada. Per RN, patient's grandmother attempting to get the rest of her HIV medications to hospital. Will start patient on home medications once obtained. - Continue fluconazole and Bactrim - Supportive care and nutritional support as needed. - Follow up with stool studies ID will follow up with patient as needed. Case discussed with Lali Romero. On Wednesday 05/16 spoke with PharmacistMicheal multiple times regarding ART medications. Micheal reached out to other hospitals/pharmacies for Biktarvy or Truvada + Ritonavir + Atazanavir which were not available. RN spoke with with patient's grandmother who was attempting to get the patient's medication to the hospital over the weekend. Of the medications the grandmother was able to deliver, she brought only the Ritonavir. Will need the other two medications to resume as soon as possible. Of note, patient was recently hospitalized at [facility] and discharged home on Biktarvy on 05/09. It is unknown if patient was taking Biktarvy at home, as the home medication list provided listed Truvada, Atazanavir and Ritonavir. Since Biktarvy is not available at this time, the RN has requested the grandmother bring in patient's home HIV medications as soon as possible.
--- NOTE | 2023-05-19 11:47 | P.PN ---
Date of Service: 05/19/23 Subjective: Patient is stable with no complaints. Chart has been reviewed. Patient is interacting appropriately. She is eating better. Patient denies any new complaints. ROS: 10 point ROS as noted above, otherwise negative Physical Exam: Vitals: Reviewed GEN: Alert, oriented, NAD CV: Regular rate & rhythm, no edema Pulm: Nonlabored respiraitons on room air ABD: Soft, nontender, nondistended MSK: No joint tenderness Neuro: no focal deficits Problem List: AIDS Wasting Syndrome HIV Infection with progression to Acquired Immunodeficiency Syndrome Progressive Multifocal Leukocencephalopathy Severe Protein Calorie Malnutrition Hypokalemia due to Diarrhea Medication Noncompliance 1. Continue with increased nutrition 2. Monitor HIV cts 3. Placement pending 4. Continue with monitoring labs and supplements 5. Increase strength 6. GI/DVT prophylaxis
--- NOTE | 2023-05-19 16:38 | RAD REPORT ---
EXAM DESCRIPTION: MRI - Brain W/Wo Cont - 05/19/2023 4:10 pm CLINICAL HISTORY: Right lower extremity weakness. Double vision COMPARISON: head CT May 15, 2023 TECHNIQUE: Axial, sagittal, and coronal magnetic images of the brain were obtained. 20 cc MultiHance administered intravenously FINDINGS: Diffusion-weighted/ ADC mapping sequences demonstrate abnormal signal within the left aspect of casey. Punctate abnormal signal is also present within the left cerebellar peduncle. These are all compatib le with acute infarction. Abnormal signal is present within the frontal lobes, left temporal lobe, parietal lobes and right cer ebellum. The majority is present within the subcortical white matter. Abnormal signal is present within left thalamus extending into the left internal capsule/left basal g anglia. Peripheral enhancement involves the left frontal lobe white matter lesions. 8 millimeter enhancing le leo medial left frontal lobe An extra-axial fluid collection is not noted. 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
[2023-05-20] MEDS: SMZ./TMP. 800/160 MG TABLET PO SCH (08:44)
[2023-05-20] MEDS: RITONAVIR 100 MG PO SCH (08:44)
[2023-05-20] MEDS: FLUCONAZOLE 100 MG TAB PO SCH (08:44)
[2023-05-20] MEDS: EMTRICITABINE PO SCH (08:45)
[2023-05-20] MEDS: ENSURE ENLIVE 237 ML CAN PO SCH ×3 (08:45→20:42)
[2023-05-20] MEDS: ATAZANAVIR 300 MG PO SCH (08:45)
[2023-05-20] MEDS: TENOFOVIR PO SCH (08:45)
--- NOTE | 2023-05-20 09:13 | P.PN ---
Date of Service: 05/20/23 Chief Complaint: Generalized weakness and diarrhea Subjective: Patient seen and examined at bedside. A&Ox2. Breathing comfortably on room air. Denies any new or worsening complaints. No acute events reported overnight. Home ART medications brought to hospital by patient's grandmother. Physical Examination Temp Pulse Resp BP Pulse Ox 98.2 F 96 H 20 102/69 100 05/20/23 08:00 05/20/23 08:00 05/20/23 08:00 05/20/23 08:00 05/20/23 08:00 General: In no apparent distress, Oriented x2, Cachectic HEENT: Atraumatic, Normocephalic. Missing teeth. Neck: JVD not distended Respiratory: Clear to auscultation bilaterally, Normal air movement Cardiovascular: No edema, Other (weak pedal pulses) Gastrointestinal: No rebound, No guarding, Hyperactive Musculoskeletal: No clubbing, No swelling. Severe muscle wasting. Integumentary: No rashes Laboratory Data - Reviewed Microbiology Data - Reviewed Imagings Data: - Reviewed Medication List: Reviewed Assessment and Plan Problem List AIDS Progressive Multifocal Leukoencephalopathy Diarrhea Failure to Thrive Anemia Moderate protein calorie malnutrition AIDS wasting syndrome Hx pneumocystis pneumonia AIDS Progressive Multifocal Leukoencephalopathy Patient was recently discharged home from [facility] on 05/09 with diagnosis of AIDS and Progressive Multifocal Leukoencephalopathy. - [facility] records from recent admission showing CD4 count of 3 on 05/05 - Prophylaxis with Fluconazole and Bactrim - Started on home ART 05/20: Truvada + Atazanavir + Ritonavir - Patient's grandmother was able to get patient's ART meds to hospital 05/19 Diarrhea - Improving. No diarrhea recorded >24 hours. - Fecal leukocytes 05/16: No WBCs seen - Stool culture 05/16: No salmonella, shigella or campylobacter isolated. 4+ yeast. - Stool Ova and Parasites 05/16: Pending Recommendations - Continue prophylactic Fluconazole PO and Bactrim PO - HIV/AIDS: Started on home ART medications 05/20. - Continue supplemental nutrition and supportive care ID will follow up with patient as needed. Case discussed with Stephaine Romero
--- NOTE | 2023-05-20 11:54 | P.PN ---
Subjective Date of Service: 05/20/23 Chief Complaint: Generalized weakness and diarrhea Subjective: No new changes Review of Systems Gastrointestinal: Unremarkable Physical Examination - Vital Signs Temperature: 98.2 F Blood Pressure: 102/69 Pulse: 96 Respirations: 20 Pulse Ox (%): 100 - Physical Exam General: Alert, Oriented x2, Cachectic HEENT: Atraumatic Neck: Supple, 2+ carotid pulse no bruit Respiratory: Clear to auscultation bilaterally Cardiovascular: No edema Capillary refill: <2 Seconds Gastrointestinal: Normal bowel sounds Musculoskeletal: No clubbing Integumentary: Other (scabbing to left lower leg) Neurological: Other (generally weak, minimal movement of right lower ext) External genitalia: Deferred Rectal: Deferred - Studies Microbiology Data (last 24 hrs): 05/15/23 09:54 Blood - Blood Aerobic Blood Culture - Final No growth in 5 days. 05/15/23 09:54 Blood - Blood Anaerobic Blood Culture - Final No growth in 5 days. 05/15/23 09:15 Blood - Blood Aerobic Blood Culture - Final No growth in 5 days. 05/15/23 09:15 Blood - Blood Anaerobic Blood Culture - Final No growth in 5 days. 05/16/23 06:30 Stool Culture & Sensitivity - Final Assessment And Plan - Current Problems (Diagnosis) (1) AIDS Current Visit: Yes Status: Acute Plan: Continue to follow plan of ID specialists. adoption services manager to eval for placement. Plan to discharge in: 48 Hours
[2023-05-21] MEDS: ONDANSETRON 4 MG/2 ML VIAL IV PRN (05:41)
--- NOTE | 2023-05-21 07:11 | P.PN ---
Date of Service: 05/21/23 Subjective: confused at times, doesn't understand/remember why shes here; +tearful at times refused PT yesterday; was too tired and weak right sided (upper and lower body) weakness ongoing for ~2 weeks; +double vision ROS: 10 point ROS as noted above, otherwise negative Physical Exam: GEN: oriented, tearful, cachectic HEENT: Normal conjunctiva, sclera anicteric CV: Regular rate & rhythm, no edema Pulm: nonlabored respirations on room air, clear bilaterally ABD: Soft, nontender, nondistended Neuro: Abnormal strength (RLE:1+/5 RUE:1-/5 LLE:5/5 LUE 5/5) mild R lower facial droop; able to lift RLE ~5cm off the bed; diplopia, left-beating nystagmus vitals reviewed Problem List: Acute CVA - Anni & left cerebellar peduncle Diplopia, acute R-sided weakness , acute/subacute AIDS Wasting Syndrome HIV Infection with progression to Acquired Immunodeficiency Syndrome Progressive Multifocal Leukocencephalopathy Severe Protein Calorie Malnutrition Hypokalemia due to Diarrhea Medication Noncompliance Acute CVA - Anni & left cerebellar peduncle Diplopia, acute R-sided weakness , acute/subacute Progressive Multifocal Leukocencephalopathy CT head(05/15): no acute intracranial abnormality is seen. MRI brain (05/19): Acute infarction anni with acute micro infarcts left cerebellar peduncle Bilateral cerebrum and right cerebellar predominately white matter abnormal signal which can be seen with progressive multifocal leukoencephalopathy right sided weakness ongoing for ~2 weeks per patient report; (RLE:1+/5 RUE:1-/5 LLE:5/5 LUE 5/5) +mild R lower facial droop unclear exact timing, patient does have some self-reported confusion able to lift RLE ~5cm off the bed; diploplia, left Nystagmus Neurology consulted AIDS Wasting Syndrome HIV Infection with progression to Acquired Immunodeficiency Syndrome Severe Protein Calorie Malnutrition Hypokalemia due to Diarrhea Medication Noncompliance Does not currently meet sepsis criteria patient has been non-compliant with her ART regimen Last CD4 count was 3 on 05/05/2023 ID consulted Recommended metronidazole, Biktarvy (from home supply), and prophylactic sulfamethoxazole-trimethoprim If Biktarvy not available, start on Truvada 200mg-300mg tablet PO daily + Atazanavir 300mg PO daily + Ritonavir 100mg PO daily Started on home ART 05/20: Truvada + Atazanavir + Ritonavir Blood cultures: NTGD Stool culture(05/16): 4+ yeast Stool Ova and Parasites (05/16): Pending C. Diff - negative flagyl DCd (05/15-05/19) Continue fluconazole(05/20-) and Bactrim (05/16-) PT consult Code: Full Dispo: LTACH vs SNF ss/cm consulted
[2023-05-21] MEDS: FLUCONAZOLE 100 MG TAB PO SCH (08:03)
[2023-05-21] MEDS: SMZ./TMP. 800/160 MG TABLET PO SCH (08:03)
[2023-05-21] MEDS: ATAZANAVIR 300 MG PO SCH (08:04)
[2023-05-21] MEDS: TENOFOVIR PO SCH (08:04)
[2023-05-21] MEDS: RITONAVIR 100 MG PO SCH (08:04)
[2023-05-21] MEDS: EMTRICITABINE PO SCH (08:04)
[2023-05-21] MEDS: ENSURE ENLIVE 237 ML CAN PO SCH ×3 (08:04→20:13)
--- NOTE | 2023-05-21 09:18 | P.PN ---
Date of Service: 05/21/23 Chief Complaint: Generalized weakness and diarrhea Subjective: No new changes. No acute events reported overnight. Denies any new or worsening complaints. Patient in bed, A&Ox2-3. NAD. Physical Examination Temp Pulse Resp BP Pulse Ox 97.0 F 83 16 98/70 98 05/21/23 07:59 05/21/23 07:59 05/21/23 07:59 05/21/23 07:59 05/21/23 07:59 General: In no apparent distress, Oriented x2, Cachectic HEENT: Atraumatic, Normocephalic. Missing teeth. Neck: JVD not distended Respiratory: Clear to auscultation bilaterally, Normal air movement Cardiovascular: No edema, Other (weak pedal pulses) Gastrointestinal: No rebound, No guarding, Hyperactive Musculoskeletal: No clubbing, No swelling. Severe muscle wasting. Integumentary: No rashes Neuro: Right sided weakness Laboratory Data - Reviewed Microbiology Data - Reviewed Imagings Data: - CT Head 05/15: "No acute intracranial abnormality is seen." - MRI Brain 05/19: "Acute infarction casey with acute micro infarcts left cerebellar peduncle. Bilateral cerebrum and right cerebellar predominately white matter abnormal signal which can be seen with progressive multifocal leukoencephalopathy." Medication List: Reviewed Assessment and Plan Problem List AIDS Progressive Multifocal Leukoencephalopathy Diarrhea Failure to Thrive Anemia Moderate protein calorie malnutrition AIDS wasting syndrome Hx pneumocystis pneumonia AIDS Progressive Multifocal Leukoencephalopathy Patient was recently discharged home from [facility] on 05/09 with diagnosis of AIDS and Progressive Multifocal Leukoencephalopathy. - [facility] records from recent admission showing CD4 count of 3 on 05/05 - Prophylaxis with Fluconazole and Bactrim - Started on home ART 05/20: Truvada + Atazanavir + Ritonavir - Patient's grandmother was able to get patient's ART meds to hospital 05/19 Diarrhea - Improving - Fecal leukocytes 05/16: No WBCs seen - Stool culture 05/16: No salmonella, shigella or campylobacter isolated. 4+ yeast. - Stool Ova and Parasites 05/16: Pending Recommendations - Continue prophylactic Fluconazole PO and Bactrim PO - HIV/AIDS: Continue home ART medications Truvada, Atazanavir and Ritonavir - Continue supplemental nutrition and supportive care ID will follow up with patient as needed. Case discussed with Stephanie Romero
--- NOTE | 2023-05-22 07:02 | P.PN ---
Date of Service: 05/22/23 Subjective: doing okay; +tired refusing PT again yesterday, confused as to why she needed PT Right sided weakness ~unchanged no acute events overnight ROS: 10 point ROS as noted above, otherwise negative Physical Exam: GEN: oriented, tearful, cachectic, mild slurred speech HEENT: Normal conjunctiva, sclera anicteric CV: Regular rate & rhythm, no edema Pulm: nonlabored respirations on room air, clear bilaterally ABD: Soft, nontender, nondistended Neuro: Abnormal strength (RLE:1+/5 RUE:1-/5 LLE:5/5 LUE 5/5) mild R lower facial droop; able to lift RLE ~5cm off the bed; diplopia, left-beating nystagmus vitals reviewed Problem List: Acute CVA - Anni & left cerebellar peduncle Diplopia, acute R-sided weakness , acute/subacute AIDS Wasting Syndrome HIV Infection with progression to Acquired Immunodeficiency Syndrome Progressive Multifocal Leukocencephalopathy Severe Protein Calorie Malnutrition Hypokalemia due to Diarrhea Medication Noncompliance Acute CVA - Anni & left cerebellar peduncle Diplopia, acute R-sided weakness , acute/subacute Progressive Multifocal Leukocencephalopathy CT head(05/15): no acute intracranial abnormality is seen. MRI brain (05/19): Acute infarction anni with acute micro infarcts left cerebellar peduncle Bilateral cerebrum and right cerebellar predominately white matter abnormal signal which can be seen with progressive multifocal leukoencephalopathy right sided weakness ongoing for ~2 weeks per patient report; (RLE:1+/5 RUE:1-/5 LLE:5/5 LUE 5/5) +mild R lower facial droop unclear exact timing, patient does have some self-reported confusion able to lift RLE ~5cm off the bed; diploplia, left Nystagmus Neurology consulted AIDS Wasting Syndrome HIV Infection with progression to Acquired Immunodeficiency Syndrome Severe Protein Calorie Malnutrition Hypokalemia due to Diarrhea Medication Noncompliance Does not currently meet sepsis criteria patient has been non-compliant with her ART regimen Last CD4 count was 3 on 05/05/2023 ID consulted Recommended metronidazole, Biktarvy (from home supply), and prophylactic sulfamethoxazole-trimethoprim If Biktarvy not available, start on Truvada 200mg-300mg tablet PO daily + Atazanavir 300mg PO daily + Ritonavir 100mg PO daily Started on home ART 05/20: Truvada + Atazanavir + Ritonavir Blood cultures(05/15): no growth Stool culture(05/16): 4+ yeast Stool Ova and Parasites (05/16): Pending C. Diff - negative flagyl DCd (05/15-05/19) Continue prophylactic fluconazole(05/20-) and Bactrim (05/16-) PT consult Code: Full Dispo: [facility] ss/cm consulted. Pt. brother chose [facility] (05/22) - pending approval if in line with what she would want, likely appropriate for hospice briefly discussed with patient 05/21, not ready yet
[2023-05-22 07:23] LABS: Magnesium 1.9 mg/dL (1.6-2.4); Potassium 4.2 mEq/L (3.5-5.1)
[2023-05-22] MEDS: FLUCONAZOLE 100 MG TAB PO SCH (08:57)
[2023-05-22] MEDS: SMZ./TMP. 800/160 MG TABLET PO SCH (08:57)
[2023-05-22] MEDS: EMTRICITABINE PO SCH (08:58)
[2023-05-22] MEDS: RITONAVIR 100 MG PO SCH (08:58)
[2023-05-22] MEDS: TENOFOVIR PO SCH (08:58)
[2023-05-22] MEDS: ATAZANAVIR 300 MG PO SCH (08:58)
[2023-05-22] MEDS: ENSURE ENLIVE 237 ML CAN PO SCH ×3 (08:59→19:47)
--- NOTE | 2023-05-22 10:20 | P.PN ---
Date of Service: 05/22/23 Chief Complaint: Generalized weakness and diarrhea Subjective: Patient seen and examined at bedside. Reports feeling tired. Otherwise no new or worsening complaints. No nausea vomiting or diarrhea. Denies any chest pain back pain or abdominal pain. Physical Examination Temp Pulse Resp BP Pulse Ox 97.7 F 99 H 18 94/65 100 05/22/23 08:00 05/22/23 08:00 05/22/23 08:00 05/22/23 08:00 05/22/23 08:00 General: In no apparent distress, Oriented x2, Cachectic HEENT: Atraumatic, Normocephalic. Missing teeth. Respiratory: Clear to auscultation bilaterally, Normal air movement Cardiovascular: No edema, Weak pedal pulses. Gastrointestinal: Normoactive bowel sounds. No tenderness. Non-distended. Musculoskeletal: No clubbing, No swelling. Severe muscle wasting. Integumentary: No rashes Neuro: Right sided weakness. Studies Laboratory Data - Reviewed Microbiology Data - Reviewed Imagings Data: - CT Head 05/15: "No acute intracranial abnormality is seen." - MRI Brain 05/19: "Acute infarction casey with acute micro infarcts left cerebellar peduncle. Bilateral cerebrum and right cerebellar predominately white matter abnormal signal which can be seen with progressive multifocal leukoencephalopathy." Medication List: Reviewed Assessment and Plan Problem List HIV with progression to AIDS Progressive Multifocal Leukoencephalopathy Diarrhea Acute/Subacute CVA Failure to Thrive Anemia Severe Protein Calorie Malnutrition AIDS wasting syndrome Hx pneumocystis pneumonia AIDS Progressive Multifocal Leukoencephalopathy - Patient was recently discharged home from [facility] on 05/09 with diagnosis of AIDS and Progressive Multifocal Leukoencephalopathy. - [facility] records from recent admission showing CD4 count of 3 on 05/05 - Blood cultures 05/15: No growth to date - Prophylaxis with Fluconazole and Bactrim - Started on home ART 05/20: Truvada + Atazanavir + Ritonavir - Patient's grandmother was able to get patient's ART meds to hospital 05/19 Diarrhea - Improving - Fecal leukocytes 05/16: No WBCs seen - Stool culture 05/16: No salmonella, shigella or campylobacter isolated. 4+ yeast. - Stool Ova and Parasites 05/16: Pending Recommendations - Continue prophylactic Fluconazole PO and Bactrim PO - Continue home ART medications Truvada, Atazanavir and Ritonavir - Continue supplemental nutrition and supportive care Pending SNF approval ID will follow up with patient as needed. Case discussed with Stephanie Romero
[2023-05-22] MEDS: ONDANSETRON 4 MG/2 ML VIAL IV PRN (20:58)
[2023-05-23 04:02] LABS: Hematocrit 35.5 % (36.0-45.0); MPV 8.6 fL (7.6-11.3); RBC Red Blood Cell Count 3.82 M/uL (3.86-4.86)
[2023-05-23 04:17] LABS: Potassium 3.8 mEq/L (3.5-5.1)
[2023-05-23] MEDS: SMZ./TMP. 800/160 MG TABLET PO SCH (08:39)
[2023-05-23] MEDS: FLUCONAZOLE 100 MG TAB PO SCH (08:39)
[2023-05-23] MEDS: ATAZANAVIR 300 MG PO SCH (08:40)
[2023-05-23] MEDS: RITONAVIR 100 MG PO SCH (08:40)
[2023-05-23] MEDS: EMTRICITABINE PO SCH (08:40)
[2023-05-23] MEDS: TENOFOVIR PO SCH (08:40)
[2023-05-23] MEDS: ENSURE ENLIVE 237 ML CAN PO SCH ×3 (08:40→20:35)
--- NOTE | 2023-05-23 09:48 | P.PN ---
Date of Service: 05/23/23 Chief Complaint: Generalized weakness and diarrhea Subjective: Pending NH/SNF placement/approval No new changes. No acute events reported overnight. Patient in bed, not in apparent distress, breathing comfortably on room air. Denies any chest pain, back pain or abdominal pain. No nausea or vomiting. Reports good appetite. Physical Examination Temp Pulse Resp BP Pulse Ox 97.8 F 88 16 92/60 100 05/23/23 08:00 05/23/23 08:00 05/23/23 08:00 05/23/23 08:00 05/23/23 08:00 General: In no apparent distress, Oriented x2, Cachectic HEENT: Atraumatic, Normocephalic. Missing teeth. Respiratory: Clear to auscultation bilaterally, Normal air movement Cardiovascular: No edema, Weak pedal pulses. Gastrointestinal: Normoactive bowel sounds. No tenderness. Non-distended. Musculoskeletal: No clubbing, No swelling. Severe muscle wasting. Integumentary: No rashes Neuro: Right sided weakness. Studies Laboratory Data - Reviewed Microbiology Data - Reviewed Imagings Data: - CT Head 05/15: "No acute intracranial abnormality is seen." - MRI Brain 05/19: "Acute infarction casey with acute micro infarcts left cerebellar peduncle. Bilateral cerebrum and right cerebellar predominately white matter abnormal signal which can be seen with progressive multifocal leukoencephalopathy." Medication List: Reviewed Assessment and Plan Problem List HIV with progression to AIDS Progressive Multifocal Leukoencephalopathy Diarrhea Acute/Subacute CVA Failure to Thrive Anemia Severe Protein Calorie Malnutrition AIDS wasting syndrome Hx pneumocystis pneumonia AIDS Progressive Multifocal Leukoencephalopathy - Patient was recently discharged home from [facility] on 05/09 with diagnosis of AIDS and Progressive Multifocal Leukoencephalopathy. - [facility] records from recent admission showing CD4 count of 3 on 05/05 - Blood cultures 05/15: No growth to date - Prophylaxis with Fluconazole and Bactrim - Started on home ART 05/20: Truvada + Atazanavir + Ritonavir - Patient's grandmother was able to get patient's ART meds to hospital 05/19 Diarrhea - Improving - Fecal leukocytes 05/16: No WBCs seen - Stool culture 05/16: No salmonella, shigella or campylobacter isolated. 4+ yeast. - Stool Ova and Parasites 05/16: Pending Recommendations - Continue prophylactic Fluconazole PO and Bactrim PO - Continue home ART medications Truvada, Atazanavir and Ritonavir - Continue supplemental nutrition and supportive care Pending NH/SNF placement. ID will follow up with patient as needed. Case discussed with Stephanie Romero
[2023-05-24 04:26] LABS: Phosphorus 4.2 mg/dL (2.5-4.9); Potassium 4.2 mEq/L (3.5-5.1)
[2023-05-24] MEDS: FLUCONAZOLE 100 MG TAB PO SCH (08:49)
[2023-05-24] MEDS: RITONAVIR 100 MG PO SCH (08:49)
[2023-05-24] MEDS: ATAZANAVIR 300 MG PO SCH (08:49)
[2023-05-24] MEDS: SMZ./TMP. 800/160 MG TABLET PO SCH (08:49)
[2023-05-24] MEDS: EMTRICITABINE PO SCH (08:50)
[2023-05-24] MEDS: TENOFOVIR PO SCH (08:50)
[2023-05-24] MEDS: ENSURE ENLIVE 237 ML CAN PO SCH ×3 (08:51→20:34)
--- NOTE | 2023-05-24 19:47 | P.PN ---
Date of Service: 05/23/23 Subjective: Pt is doing well ROS: 10 point ROS as noted above, otherwise negative Physical Exam: Vitals: Reviewed GEN: Alert, oriented, NAD CV: Regular rate & rhythm, no edema Pulm: Nonlabored respiraitons on room air ABD: Soft, nontender, nondistended MSK: No joint tenderness Neuro: no focal deficits Problem List: AIDS Wasting Syndrome HIV Infection with progression to Acquired Immunodeficiency Syndrome Progressive Multifocal Leukocencephalopathy Severe Protein Calorie Malnutrition Hypokalemia due to Diarrhea Medication Noncompliance PLAN: Continue with POC as mentioned below: 1. Continue with increased nutrition 2. Monitor HIV cts 3. Placement pending 4. Continue with monitoring labs and supplements 5. Increase strength 6. GI/DVT prophylaxis
--- NOTE | 2023-05-24 19:48 | P.PN ---
Date of Service: 05/24/23 Subjective: No new changes; awaiting placement; medically stable for DC ROS: 10 point ROS as noted above, otherwise negative Physical Exam: Vitals: Reviewed GEN: Alert, oriented, NAD CV: Regular rate & rhythm, no edema Pulm: Nonlabored respiraitons on room air ABD: Soft, nontender, nondistended MSK: No joint tenderness Neuro: no focal deficits Problem List: AIDS Wasting Syndrome HIV Infection with progression to Acquired Immunodeficiency Syndrome Progressive Multifocal Leukocencephalopathy Severe Protein Calorie Malnutrition Hypokalemia due to Diarrhea CVA Medication Noncompliance PLAN: Continue with POC as mentioned below: 1. Continue with increased nutrition 2. Monitor HIV cts 3. Placement pending 4. Continue with monitoring labs and supplements 5. Increase strength 6. Anti-platelet therapy 7. GI/DVT prophylaxis
[2023-05-24] MEDS ORDERED: ATORVASTATIN 40 MG TAB PO SCH (21:00)
[2023-05-25 05:50] LABS: Phosphorus 3.9 mg/dL (2.5-4.9); Potassium 4.2 mEq/L (3.5-5.1)
[2023-05-25] MEDS: ENOXAPARIN 40 MG/0.4 ML SQ SCH (08:26)
[2023-05-25] MEDS: ASPIRIN EC 81 MG TAB PO SCH (08:27)
[2023-05-25] MEDS: RITONAVIR 100 MG PO SCH (08:27)
[2023-05-25] MEDS: FLUCONAZOLE 100 MG TAB PO SCH (08:27)
[2023-05-25] MEDS: ENSURE ENLIVE 237 ML CAN PO SCH ×3 (08:27→20:30)
[2023-05-25] MEDS: SMZ./TMP. 800/160 MG TABLET PO SCH (08:27)
[2023-05-25] MEDS: ATAZANAVIR 300 MG PO SCH (08:27)
[2023-05-25] MEDS: EMTRICITABINE PO SCH (08:28)
[2023-05-25] MEDS: TENOFOVIR PO SCH (08:28)
[2023-05-26 06:52] LABS: Magnesium 1.9 mg/dL (1.6-2.4); Phosphorus 3.5 mg/dL (2.5-4.9); Potassium 3.8 mEq/L (3.5-5.1)
--- NOTE | 2023-05-26 06:53 | P.PN ---
Date of Service: 05/25/23 Subjective: Patient is using more agitated today. She is pretty upset about something which she really was able to verbalize well. Case Management is still working on placement at this time. Medically is on she is taking her HIV med we can repeat her CD4 count over the next week. MRI did show an acute CVA. Continue with anti-platelet therapy. Her LDL is very low so at this time not going to give her statin therapy with all her current comorbidities. Continue monitoring CD4 count. 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 Continue with increased nutrition 2. Monitor HIV cts 3. Placement pending 4. Continue with monitoring labs and supplements 5. Increase strength 6. ANTI-PLATELET THERAPY 7.GI/DVT prophylaxis
[2023-05-26] MEDS ORDERED: POTASSIUM CL SA 10 MEQ TAB PO ONE (09:00)
[2023-05-26] MEDS: SMZ./TMP. 800/160 MG TABLET PO SCH (09:06)
[2023-05-26] MEDS: RITONAVIR 100 MG PO SCH (09:07)
[2023-05-26] MEDS: TENOFOVIR PO SCH (09:07)
[2023-05-26] MEDS: ASPIRIN EC 81 MG TAB PO SCH (09:07)
[2023-05-26] MEDS: FLUCONAZOLE 100 MG TAB PO SCH (09:07)
[2023-05-26] MEDS: ENOXAPARIN 40 MG/0.4 ML SQ SCH (09:07)
[2023-05-26] MEDS: ATAZANAVIR 300 MG PO SCH (09:07)
[2023-05-26] MEDS: EMTRICITABINE PO SCH (09:07)
[2023-05-26] MEDS: ENSURE ENLIVE 237 ML CAN PO SCH ×3 (09:08→21:00)
[2023-05-26 09:43] VITALS: O2SAT 99
--- NOTE | 2023-05-26 14:13 | P.PN ---
Date of Service: 05/26/23 Chief Complaint: Generalized weakness and diarrhea Subjective: No new changes. No acute events reported overnight. Patient seen and examined at bedside. Denies any new or worsening complaints. Still pending NH/SNF placement. Physical Examination Temp Pulse Resp BP Pulse Ox 98.1 F 84 16 104/69 99 05/26/23 08:00 05/26/23 08:00 05/26/23 08:00 05/26/23 08:00 05/26/23 08:00 General: In no apparent distress, Oriented to person plance and time. HEENT: Atraumatic, Normocephalic. Missing teeth. Respiratory: Clear to auscultation bilaterally, Normal air movement Cardiovascular: No edema, Weak pedal pulses. Gastrointestinal: Normoactive bowel sounds. No tenderness. Non-distended. Musculoskeletal: No clubbing, No swelling. Severe muscle wasting. Integumentary: No rashes Neuro: Right sided weakness. Studies Laboratory Data - Reviewed Microbiology Data - Reviewed Imagings Data: - CT Head 05/15: "No acute intracranial abnormality is seen." - MRI Brain 05/19: "Acute infarction casey with acute micro infarcts left cerebellar peduncle. Bilateral cerebrum and right cerebellar predominately white matter abnormal signal which can be seen with progressive multifocal leukoencephalopathy." Medication List: Reviewed Assessment and Plan Problem List HIV with progression to AIDS Progressive Multifocal Leukoencephalopathy Diarrhea Acute/Subacute CVA Failure to Thrive Anemia Severe Protein Calorie Malnutrition AIDS wasting syndrome Hx pneumocystis pneumonia AIDS Progressive Multifocal Leukoencephalopathy - Patient was recently discharged home from [facility] on 05/09 with diagnosis of AIDS and Progressive Multifocal Leukoencephalopathy. - [facility] records from recent admission showing CD4 count of 3 on 05/05 - Blood cultures 05/15: No growth to date - Prophylaxis with Fluconazole and Bactrim - Started on home ART 05/20: Truvada + Atazanavir + Ritonavir Recommendations - Continue prophylactic Fluconazole PO and Bactrim PO - Continue home ART medications Truvada, Atazanavir and Ritonavir - Continue supplemental nutrition and supportive care Pending NH/SNF placement. ID will follow up with patient as needed. Case discussed with Stephanie Romero
--- NOTE | 2023-05-26 17:33 | P.PN ---
Subjective Date of Service: 05/26/23 Chief Complaint: Generalized weakness and diarrhea No acute events overnight. It appears that she is pending placement to SNF; however, cost of her medication is an issue. She appears frustrated this morning, but is unable to verbalize her concerns. She denies any chest pain, palpitations, or shortness of breath. Spoke with CM to see what options/resources are available. Review of Systems 10-point ROS is otherwise unremarkable General: Weakness (generalized) Physical Examination - Vital Signs Temperature: 99.4 F Blood Pressure: 108/61 Pulse: 93 Respirations: 16 Pulse Ox (%): 99 Assessment And Plan - Plan - Physical Exam General: Alert, Oriented x3 HEENT: Atraumatic, Sclerae nonicteric Neck: JVD not distended Respiratory: Clear to auscultation bilaterally Cardiovascular: No edema, Regular rate/rhythm Gastrointestinal: Normal bowel sounds, Soft, Non-distended, No tenderness Musculoskeletal: Severe cachexia with muscle wasting Integumentary: No rashes Neurological: Normal speech, Normal affect, suspected word-finding difficulty, right lower extremity weakness noted # 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 Bilateral cerebrum and right cerebellar predominately white matter abnormal signal which can be seen with progressive multifocal leukoencephalopathy" - Consulted Infectious Diseases and spoke with CANCER GENETICS ASSISTANT Sgarbi - recommendations appreciated - Recommended metronidazole, Biktarvy (from home supply), and prophylactic sulfamethoxazole-trimethoprim - Dr. Frank will call his colleagues (HIV specialists) at [facility] to see if transferring her to their facility would be appropriate - Consulted Neurology - recommendations appreciated - Continue aspirin. Started on atorvastatin, folic acid - Appreciate Neurology recs regarding clopidogrel vs apixaban - Ordered transthoracic echocardiogram to evaluate for cardioembolic phenomenon - Although MRI report states acute, she reported right lower extremity weakness for several weeks - suspect may be subacute CVA - C. Diffile stool toxin - negative - Nutrition consulted - started Ensure TID - Consulted PT - may benefit from placement for continued PT services - Appreciate CM assistance Henri Jarrett M.D.
[2023-05-26] MEDS: ATORVASTATIN 40 MG TAB PO SCH (21:23)
[2023-05-27 06:35] LABS: Potassium 4.1 mEq/L (3.5-5.1)
[2023-05-27] MEDS: FLUCONAZOLE 100 MG TAB PO SCH (08:02)
[2023-05-27] MEDS: ASPIRIN EC 81 MG TAB PO SCH (08:02)
[2023-05-27] MEDS: SMZ./TMP. 800/160 MG TABLET PO SCH (08:02)
[2023-05-27] MEDS: FOLIC ACID 1 MG TABLET PO SCH (08:02)
[2023-05-27] MEDS: ENOXAPARIN 40 MG/0.4 ML SQ SCH (08:02)
[2023-05-27] MEDS: RITONAVIR 100 MG PO SCH (08:03)
[2023-05-27] MEDS: ATAZANAVIR 300 MG PO SCH (08:03)
[2023-05-27] MEDS: EMTRICITABINE PO SCH (08:04)
[2023-05-27] MEDS: ENSURE ENLIVE 237 ML CAN PO SCH ×3 (08:04→21:00)
[2023-05-27] MEDS: TENOFOVIR PO SCH (08:04)
--- NOTE | 2023-05-27 09:12 | P.PN ---
Date of Service: 05/27/23 Chief Complaint: Generalized weakness and diarrhea Subjective: No new changes. No acute events reported overnight. Patient seen and examined at bedside. Resting comfortably in bed, A&O person place year. NAD. Denies any new or worsening complaints. Physical Examination Temp Pulse Resp BP Pulse Ox 98.1 F 84 18 108/70 98 05/27/23 04:00 05/27/23 04:00 05/27/23 04:00 05/27/23 04:00 05/27/23 04:00 General: In no apparent distress, Oriented x3. HEENT: Atraumatic, Normocephalic. Missing teeth. Respiratory: Clear to auscultation bilaterally, Normal air movement Cardiovascular: No edema, Weak pedal pulses. Gastrointestinal: Normoactive bowel sounds. No tenderness. Non-distended. Musculoskeletal: No clubbing, No swelling. Severe muscle wasting. Integumentary: No rashes Neuro: Right sided weakness. Studies Laboratory Data - Reviewed Microbiology Data - Reviewed Imagings Data: - CT Head 05/15: "No acute intracranial abnormality is seen." - MRI Brain 05/19: "Acute infarction casey with acute micro infarcts left cerebellar peduncle. Bilateral cerebrum and right cerebellar predominately white matter abnormal signal which can be seen with progressive multifocal leukoencephalopathy." Medication List: Reviewed Assessment and Plan Problem List HIV with progression to AIDS Progressive Multifocal Leukoencephalopathy Diarrhea Acute/Subacute CVA Failure to Thrive Anemia Severe Protein Calorie Malnutrition AIDS wasting syndrome Hx pneumocystis pneumonia AIDS Progressive Multifocal Leukoencephalopathy - Patient was recently discharged home from [facility] on 05/09 with diagnosis of AIDS and Progressive Multifocal Leukoencephalopathy. - [facility] records from recent admission showing CD4 count of 3 on 05/05 - Blood cultures 05/15: No growth to date - Prophylaxis with Fluconazole and Bactrim - On home ART: Truvada + Atazanavir + Ritonavir Recommendations Continue current plan of care. No new changes. Pending SNF placement. - Continue prophylactic Fluconazole PO and Bactrim PO - Continue home ART medications Truvada, Atazanavir and Ritonavir - Continue supplemental nutrition and supportive care ID will follow up with patient as needed. Case discussed with Stephanie Romero
[2023-05-27] MEDS ORDERED: MORPHINE 2 MG/ML SYR IV ONE (11:22)
[2023-05-27] MEDS ORDERED: ALPRAZOLAM 0.25 MG TABLET PO ONE (16:11)
--- NOTE | 2023-05-27 16:45 | P.PN ---
Subjective Date of Service: 05/27/23 Chief Complaint: Generalized weakness and diarrhea No acute events overnight. She appears anxious this morning, but she is unable to verbalize her concerns to me. She denies any chest pain, palpitations, or shortness of breath. Spoke with CM to see what options/resources are available. Review of Systems 10-point ROS is otherwise unremarkable General: Weakness (generalized, right > left) Physical Examination - Vital Signs Temperature: 98.7 F Blood Pressure: 109/65 Pulse: 92 Respirations: 20 Pulse Ox (%): 100 Assessment And Plan - Plan - Physical Exam General: Alert, Oriented x2 HEENT: Atraumatic, Sclerae nonicteric Neck: JVD not distended Respiratory: Clear to auscultation bilaterally Cardiovascular: No edema, Regular rate/rhythm Gastrointestinal: Normal bowel sounds, Soft, Non-distended, No tenderness Musculoskeletal: Severe cachexia with muscle wasting Integumentary: No rashes Neurological: Normal speech, Normal affect, word-finding difficulty, right upper and lower extremity weakness noted # 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 Bilateral cerebrum and right cerebellar predominately white matter abnormal signal which can be seen with progressive multifocal leukoencephalopathy" - Consulted Infectious Diseases and spoke with MOTTLE LAY UP OPERATOR Sgarbi - recommendations appreciated - Recommended metronidazole, Biktarvy (from home supply), and prophylactic sulfamethoxazole-trimethoprim - Dr. Frank will call his colleagues (HIV specialists) at [facility] to see if transferring her to their facility would be appropriate - Consulted Neurology - recommendations appreciated - Continue aspirin. Started on atorvastatin, folic acid - Appreciate Neurology recs regarding clopidogrel vs apixaban - Ordered transthoracic echocardiogram to evaluate for cardioembolic phenomenon - Although MRI report states acute, she reported right lower extremity weakness for several weeks - suspect may be subacute CVA - C. Diffile stool toxin - negative - Nutrition consulted - started Ensure TID - Consulted PT - may benefit from placement for continued PT services - Appreciate CM assistance - currently exploring resources available to her Henri Jarrett M.D.
[2023-05-27] MEDS: ATORVASTATIN 40 MG TAB PO SCH (21:53)
[2023-05-28 07:05] LABS: Phosphorus 4.4 mg/dL (2.5-4.9); Potassium 3.8 mEq/L (3.5-5.1)
[2023-05-28] MEDS: FOLIC ACID 1 MG TABLET PO SCH (07:39)
[2023-05-28] MEDS: ASPIRIN EC 81 MG TAB PO SCH (07:39)
[2023-05-28] MEDS: FLUCONAZOLE 100 MG TAB PO SCH (07:39)
[2023-05-28] MEDS: SMZ./TMP. 800/160 MG TABLET PO SCH (07:39)
[2023-05-28] MEDS: ATAZANAVIR 300 MG PO SCH (07:40)
[2023-05-28] MEDS: RITONAVIR 100 MG PO SCH (07:40)
[2023-05-28] MEDS: EMTRICITABINE PO SCH (07:40)
[2023-05-28] MEDS: TENOFOVIR PO SCH (07:40)
[2023-05-28] MEDS: ENSURE ENLIVE 237 ML CAN PO SCH ×3 (07:41→20:35)
[2023-05-28] MEDS: ENOXAPARIN 40 MG/0.4 ML SQ SCH (07:41)
[2023-05-28] MEDS: ALPRAZOLAM 0.25 MG TABLET PO PRN ×2 (09:00→14:45)
--- NOTE | 2023-05-28 10:10 | P.PN ---
Date of Service: 05/28/23 Chief Complaint: Generalized weakness and diarrhea Subjective: Patient seen and examined at bedside. + anxiety Otherwise no new complaints. Pending placement. Physical Examination Temp Pulse Resp BP Pulse Ox 98.0 F 89 18 99/71 98 05/28/23 08:00 05/28/23 08:00 05/28/23 08:00 05/28/23 08:00 05/28/23 08:00 General: In no apparent distress, Oriented x2. HEENT: Atraumatic, Normocephalic. Missing teeth. Respiratory: Clear to auscultation bilaterally, Normal air movement Cardiovascular: No edema, Weak pedal pulses. Gastrointestinal: Normoactive bowel sounds. No tenderness. Non-distended. Musculoskeletal: No clubbing, No swelling. Severe muscle wasting. Integumentary: No rashes Neuro: Right sided weakness. Studies Laboratory Data - Reviewed Microbiology Data - Reviewed Imagings Data: - CT Head 05/15: "No acute intracranial abnormality is seen." - MRI Brain 05/19: "Acute infarction casey with acute micro infarcts left cerebellar peduncle. Bilateral cerebrum and right cerebellar predominately white matter abnormal signal which can be seen with progressive multifocal leukoencephalopathy." Medication List: Reviewed Assessment and Plan Problem List HIV with progression to AIDS Progressive Multifocal Leukoencephalopathy Diarrhea Acute/Subacute CVA Failure to Thrive Anemia Severe Protein Calorie Malnutrition AIDS wasting syndrome Hx pneumocystis pneumonia AIDS Progressive Multifocal Leukoencephalopathy - Patient was recently discharged home from [facility] on 05/09 with diagnosis of AIDS and Progressive Multifocal Leukoencephalopathy. - [facility] records from recent admission showing CD4 count of 3 on 05/05 - Blood cultures 05/15: No growth to date - Prophylaxis with Fluconazole and Bactrim - On home ART: Truvada + Atazanavir + Ritonavir Recommendations Continue current plan of care. - Continue prophylactic Fluconazole PO and Bactrim PO - Continue home ART medications Truvada, Atazanavir and Ritonavir - Supplemental nutrition as needed ID will follow up with patient as needed. Case discussed with Stephanie Romero
--- NOTE | 2023-05-28 10:46 | P.PN ---
Subjective Date of Service: 05/28/23 Chief Complaint: Generalized weakness and diarrhea No acute events overnight. Per RN, she continues to have episodes of anxiety, which responded well to alprazolam. This morning, she states that she is completely unable to move her right upper and lower extremity. Per CHEESE SPRAYER Lisa, who was able to review her [facility] records, her right-sided deficits were noted there as well. She denies any chest pain, palpitations, or shortness of breath. Review of Systems 10-point ROS is otherwise unremarkable General: Weakness (generalized/right-sided) Physical Examination - Vital Signs Temperature: 98.0 F Blood Pressure: 99/71 Pulse: 89 Respirations: 18 Pulse Ox (%): 98 Assessment And Plan - Plan - Physical Exam General: Alert, Oriented x2 HEENT: Atraumatic, Sclerae nonicteric Neck: JVD not distended Respiratory: Clear to auscultation bilaterally Cardiovascular: No edema, Regular rate/rhythm Gastrointestinal: Normal bowel sounds, Soft, Non-distended, No tenderness Musculoskeletal: Severe cachexia with muscle wasting Integumentary: No rashes Neurological: Normal speech, Normal affect, word-finding difficulty, right upper and lower extremity weakness noted # AIDS Wasting Syndrome # 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 Bilateral cerebrum and right cerebellar predominately white matter abnormal signal which can be seen with progressive multifocal leukoencephalopathy" - Consulted Infectious Diseases and spoke with SHAHEED Gonzalez - recommendations appreciated - Recommended Truvada, atazanavir, ritonavir, and prophylactic sulfamethoxazole-trimethoprim and fluconazole - Consulted Neurology - recommendations appreciated - Continue aspirin. Started on atorvastatin, folic acid - Appreciate Neurology recs regarding clopidogrel vs apixaban - Ordered transthoracic echocardiogram to evaluate for cardioembolic phenomenon - Although MRI report states acute, she reported right lower extremity weakness for several weeks - suspect may be subacute CVA - C. Diffile stool toxin - negative - Nutrition consulted - started Ensure TID - Consulted PT - may benefit from placement for continued PT services - Appreciate CM assistance - currently exploring resources available to her Henri Jarrett M.D.
--- NOTE | 2023-05-28 12:43 | ECHO ---
HEIGHT: 5 ft 4 in WEIGHT: 78 lb 0 oz DATE OF STUDY: 05/28/[address]: Henri Jarrett MD 2-DIMENSIONAL: YES M.MODE: YES DOPPLER: YES COLOR FLOW: YES TDS: PORTABLE: YES DEFINITY: BUBBLE STUDY: DIAGNOSIS: WEAKNESS CARDIAC HISTORY: CATHERIZATION: SURGERY: PROSTHETIC VALVE: PACEMAKER: MEASUREMENTS (cm) DIASTOLIC (NORMALS) SYSTOLIC (NORMALS) IVSd 0.8 (0.6-1.2) LA Diam (1.9-4.0) LVEF 55-60% LVIDd 3.1 (3.5-5.7) LVIDs 2.4 (2.0-3.5) %FS 22% LVPWd 0.9 (0.6-1.2) Ao Diam 2.3 (2.0-3.7) 2 DIMENSIONAL ASSESSMENT: RIGHT ATRIUM: NORMAL LEFT ATRIUM: NORMAL RIGHT VENTRICLE: NORMAL LEFT VENTRICLE: NORMAL TRICUSPID VALVE: NORMAL MITRAL VALVE: NORMAL PULMONIC VALVE: NORMAL AORTIC VALVE: NORMAL PERICARDIAL EFFUSION: NONE AORTIC ROOT: NORMAL LEFT VENTRICULAR WALL MOTION: NORMAL DOPPLER/COLOR FLOW: NORMAL COMMENTS: 1. POOR WINDOWS 2. OVERALL LEFT VENTRICULAR EJECTION FRACTION APPEARS NORMAL TECHNOLOGIST: JOHN MCFADDEN
[2023-05-28] MEDS: ATORVASTATIN 40 MG TAB PO SCH (20:35)
[2023-05-29] MEDS: ENOXAPARIN 40 MG/0.4 ML SQ SCH (09:19)
[2023-05-29] MEDS: ASPIRIN EC 81 MG TAB PO SCH (09:20)
[2023-05-29] MEDS: FOLIC ACID 1 MG TABLET PO SCH (09:20)
[2023-05-29] MEDS: RITONAVIR 100 MG PO SCH (09:20)
[2023-05-29] MEDS: FLUCONAZOLE 100 MG TAB PO SCH (09:20)
[2023-05-29] MEDS: SMZ./TMP. 800/160 MG TABLET PO SCH (09:20)
[2023-05-29] MEDS: ATAZANAVIR 300 MG PO SCH (09:21)
[2023-05-29] MEDS: TENOFOVIR PO SCH (09:21)
[2023-05-29] MEDS: EMTRICITABINE PO SCH (09:21)
[2023-05-29] MEDS: ENSURE ENLIVE 237 ML CAN PO SCH ×3 (09:22→21:00)
--- NOTE | 2023-05-29 14:33 | P.DS ---
Admission Date: 05/17/23 Discharge Date: 05/29/23 Disposition: TRANSFER TO [facility] Discharge Condition: FAIR Reason for Admission: Generalized weakness and diarrhea Consultations: 1. Infectious Diseases 2. 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 María Sosa is a 32-year-old female who has a past medical history of chronic human immunodeficiency virus infection who was admitted to the [facility] on 05/15/2023 for generalized weakness and diarrhea. She was admitted to the Medicine service. Upon further evaluation, her infectious diarrhea work-up was unremarkable. Her chest x-ray revealed, "no acute abnormalities displayed." Her CT head revealed, "no acute intracranial abnormality is seen." Her MRI brain revealed, "acute infarction anni with acute micro infarcts left cerebellar peduncle. Bilateral cerebrum and right cerebellar predominately white matter abnormal signal which can be seen with progressive multifocal leukoencephalopathy." Although the MRI report stated "acute," she reported rightsided weakness for several weeks, so it was suspected may be subacute CVA. It was thought that she would benefit from a SNF placement for continued outpatient PT. Today, a follow-up CT head was obtained, which revealed, "new 1 centimeter left frontal parasagittal subcortical focus of hyperdensity. This corresponds to a rim enhancing small lesion seen on the recent brain MRI. Overall features favor focal hemorrhage within a subcortical lesion that could be related to PML - IRIS or sequelae of antiretroviral therapy, given the extent of enhancement elsewhere seen on the prior MRI. Otherwise stable multifocal pattern of hypoattenuation/edema with expansile features as above." Given the concern for IRIS, it was decided that she would benefit from an HIV/AIDS sub-specialist. Since she was recently admitted to [facility], transfer was initiated. Doc-to-doc was completed with Dr. Perez ([facility] I nfectious Diseases), who has generously accepted her for transfer. On 05/29/2023, she was seen on rounds and deemed medically stable for transfer. She was given the opportunity to ask questions and reported no further questions. Furthermore, all questions were answered to the best of my ability. A copy of this discharge summary will be sent to the above providers to facilitate continuity of care. Today, I personally spent 40 minutes on her case, of which greater than 50% of the time was spent in patient education, counseling, and coordination of care as described above. - Physical Exam General: Alert, Oriented x2 HEENT: Atraumatic, Sclerae nonicteric Neck: JVD not distended Respiratory: Clear to auscultation bilaterally Cardiovascular: No edema, Regular rate/rhythm Gastrointestinal: Normal bowel sounds, Soft, Non-distended, No tenderness Musculoskeletal: Severe cachexia with muscle wasting Integumentary: No rashes Neurological: Normal speech, Normal affect, word-finding difficulty, right upper and lower extremity weakness noted Vital Signs/Physical Exam: Temp Pulse Resp BP Pulse Ox 98.4 F 91 H 18 91/63 100 05/29/23 08:00 05/29/23 08:00 05/29/23 08:00 05/29/23 08:00 05/29/23 08:00 Laboratory Data at Discharge: WBC 5.80 thou/uL (4.3-10.9) 05/23/23 03:27 Hgb 12.1 g/dL (12.0-15.0) 05/23/23 03:27 Hct 35.5 % (36.0-45.0) L 05/23/23 03:27 Plt Count 209 thou/uL (152-406) 05/23/23 03:27 PT 11.1 SECONDS (9.5-12.5) 05/16/23 03:43 INR 1.01 05/16/23 03:43 APTT 31.3 SECONDS (24.3-36.9) 05/15/23 09:54 Sodium 136 mEq/L (136-145) D 05/28/23 06:38 Potassium 3.8 mEq/L (3.5-5.1) 05/28/23 06:38 BUN 15 mg/dL (7-18) 05/28/23 06:38 Creatinine 0.55 mg/dL (0.55-1.02) 05/28/23 06:38 Glucose 94 mg/dL (74-106) 05/28/23 06:38 Phosphorus 4.4 mg/dL (2.5-4.9) 05/28/23 06:38 Magnesium 2.0 mg/dL (1.6-2.4) 05/28/23 06:38 Total Bilirubin 0.2 mg/dL (0.2-1.0) 05/16/23 03:43 AST 44 U/L (15-37) H 05/16/23 03:43 ALT 47 U/L (13-56) 05/16/23 03:43 Alkaline Phosphatase 78 U/L (45-117) 05/16/23 03:43 Triglycerides 209 mg/dL (<150) H 05/21/23 05:27 Cholesterol 94 mg/dL (<200) 05/21/23 05:27 HDL Cholesterol 27 mg/dL (40-60) L 05/21/23 05:27 Cholesterol/HDL Ratio 3.48 05/21/23 05:27 Home Medications: Atazanavir Sulfate [Reyataz] 300 mg PO DAILY 05/16/23 Emtricitabine/Tenofovir [Truvada* 200 mg-300 mg Tablet] 1 tab PO DAILY 05/16/23 Ritonavir 100 mg PO DAILY 05/16/23 Sulfamethoxazole/Trimethoprim [Bactrim Ds Tablet] 1 each PO DAILY 05/16/23 Aspirin Chewable [Aspirin Chewable*] 81 mg PO DAILY #30 tab.chew 05/29/23 Atorvastatin Calcium [Lipitor] 20 mg PO BEDTIME tab 05/29/23 Fluconazole 100 mg PO DAILY #30 05/29/23 Folic Acid 1 mg PO DAILY #30 05/29/23 New Medications: Aspirin Chewable [Aspirin Chewable*] 81 mg PO DAILY #30 tab.chew Fluconazole 100 mg PO DAILY #30 Folic Acid 1 mg PO DAILY #30 Physician Discharge Instructions: - Continue care at [facility] Diet: Regular Activity: Fall precautions Followup: NONE,NONE [Primary Care Provider] - Time spent managing pt's care (in minutes): 40
--- NOTE | 2023-05-29 14:38 | P.PN ---
Date of Service: 05/29/23 Chief Complaint: Generalized weakness and diarrhea Subjective: No acute events reported overnight. Patient seen and examined at bedside. She is currently sititng in bed, not in distress, breathing comfortably on room air. Physical Examination Temp Pulse Resp BP Pulse Ox 98.4 F 91 H 18 91/63 100 05/29/23 08:00 05/29/23 08:00 05/29/23 08:00 05/29/23 08:00 05/29/23 08:00 General: In no apparent distress, Oriented x2. HEENT: Atraumatic, Normocephalic. Missing teeth. Respiratory: Clear to auscultation bilaterally, Normal air movement Cardiovascular: No edema, Weak pedal pulses. Gastrointestinal: Normoactive bowel sounds. No tenderness. Non-distended. Musculoskeletal: No clubbing, No swelling. Severe muscle wasting. Integumentary: No rashes Neuro: Right sided weakness. Studies Laboratory Data - Reviewed Microbiology Data - Reviewed Imagings Data: - CT Head 05/15: "No acute intracranial abnormality is seen." - MRI Brain 05/19: "Acute infarction casey with acute micro infarcts left cerebellar peduncle. 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 - [facility] records from recent admission showing CD4 count of 3 on 05/05 - Blood cultures 05/15: No growth to date - Prophylaxis with Fluconazole and Bactrim - On home ART: Truvada + Atazanavir + Ritonavir Recommendations Continue the following medications upon discharge to SNF - Fluconazole PO and Bactrim PO - ART medications Truvada, Atazanavir and Ritonavir ID will follow up with patient as needed. Case discussed with Stephanie Romero
[2023-05-29] MEDS: ALPRAZOLAM 0.25 MG TABLET PO PRN (14:58)
--- NOTE | 2023-05-29 16:58 | RAD REPORT ---
EXAM DESCRIPTION: CT - Head angio - 05/29/2023 4:41 pm CLINICAL HISTORY: stroke eval COMPARISON: Head Brain Wo Cont dated 05/29/2023; Head Brain Wo Cont dated 05/15/2023 TECHNIQUE: Axial CT angiography images of the head was performed with multiplanar and maximum intens ity projection reconstructions. Images performed following intravenous administration of 80mL Isovue 370. All CT scans are performed using dose optimization technique as appropriate and may include automated exposure control or mA/KV adjustment according to patient size. FINDINGS: No evidence of large vessel occlusion. No evidence of aneurysm or dissection flap is detec isidro. No flow-limiting stenosis or vascular malformation identified. Antegrade flow is seen in the vertebral arteries. The vertebral arteries are codominant. The visualized dural venous sinuses are grossly patent. IMPRESSION: No evidence of large vessel occlusion or flow-limiting stenosis.
--- NOTE | 2023-05-29 17:09 | RAD REPORT ---
EXAM DESCRIPTION: CT - Head Brain Wo Cont - 05/29/2023 4:41 pm CLINICAL HISTORY: Stroke Evaluation COMPARISON: Head Brain Wo Cont dated 05/15/2023; HEAD BRAIN W O CONTRAST dated 11/26/2015; Brain W/Wo C ont dated 05/19/2023 TECHNIQUE: Noncontrast head CT images ad were obtained without IV contrast. Multiplanar reformats we re generated and reviewed. All CT scans are performed using dose optimization technique as appropriate and may include automated exposure control or mA/KV adjustment according to patient size. FINDINGS: New small ovoid focus of hyperdensity in the subcortical parasagittal left frontal lobe me asuring 1 centimeter. Minimal adjacent mass effect. Stable pattern of hypoattenuation with expansile features involving the left frontal lobe and right jamal cerebellum, and to lesser extent the left bas al ganglia, left parietal lobe, and left aspect of the casey. Midline structures are unremarkable. Stable ventricular caliber. Rodríguez-white matter differentiation is otherwise preserved, without evidence of acute infarct. No abnor mal extra-axial fluid collections. Mastoid air cells and visualized portions of the paranasal sinuses are clear. No acute bony findings. IMPRESSION: New 1 centimeter left frontal parasagittal subcortical focus of hyperdensity. This corre sponds to a rim enhancing small lesion seen on the recent brain MRI. 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 Otherwise stable multifocal pattern of hypoattenuation/edema with expansile features as above. The findings were communicated to Henri Jarrett on 05/29/2023 at 16:30 hours.
--- NOTE | 2023-05-29 17:29 | RAD REPORT ---
EXAM DESCRIPTION: CT - Neck Angio - 05/29/2023 4:41 pm CLINICAL HISTORY: stroke eval COMPARISON: Head angio dated 05/29/2023; Head Brain Wo Cont dated 05/29/2023 TECHNIQUE: Axial CT angiography images of the head was performed with multiplanar and maximum intens ity projection reconstructions. Images performed following intravenous administration of 80mL Isovue 370. All CT scans are performed using dose optimization technique as appropriate and may include automated exposure control or mA/KV adjustment according to patient size. Quantification of carotid stenosis, if any, is performed according to NASCET criteria. FINDINGS: A left aortic arch is identified with normal three vessel configuration of the great vesse ls. No significant flow abnormality is seen of the common carotid bilaterally. No significant stenosis is identified involving the cervical segments of both internal carotid arteri es. Normal flow is seen within both vertebral arteries. IMPRESSION: No significant flow abnormality of the neck vessels is identified. CAROTID STENOSIS REFERENCE USING NASCET CRITERIA: % ICA stenosis = (1 - narrowest ICA diameter/diameter of distal cervical ICA) x 100. Mild - <50% stenosis. Moderate - 50-69% stenosis. Severe - 70-94% stenosis. Near occlusion - 95-99% stenosis. Occluded - 100% stenosis.
[2023-05-29 21:30] VITALS: BP 99/63; TEMP 98.5
[2023-05-29] MEDS: ATORVASTATIN 40 MG TAB PO SCH (21:51)
== END 2023-05-29 22:00 | disposition short-term general hospital (02) | DRG 974 ==
LOC: ER 07:55 → ERHOLD 12:39 → 4TH 14:25 → OBSVTOIN 05-17 19:19
PROVIDERS: ADMIT Internal Medicine; ATTEND Internal Medicine
DX: B20 Human immunodeficiency virus [HIV] disease (principal); E43 Unspecified severe protein-calorie malnutrition; G93.49 Other encephalopathy; I63.9 Cerebral infarction, unspecified; A08.39 Other viral enteritis; Z68.1 Body mass index [BMI] 19.9 or less, adult; R64 Cachexia; G81.91 Hemiplegia, unspecified affecting right dominant side; H53.2 Diplopia; E87.6 Hypokalemia; R62.7 Adult failure to thrive; F17.200 Nicotine dependence, unspecified, uncomplicated; Z88.5 Allergy status to narcotic agent; Z79.82 Long term (current) use of aspirin; Z79.899 Other long term (current) drug therapy; Z91.148 Patient's other noncompliance with medication regimen for other reason
CPT/HCPCS: 36415; 70450; 70496; 70498; 70553; 71045; 80048; 80053; 80061; 81001; 82947; 83605; 83735; 84100; 84443; 85025; 85027; 85610; 85730; 86361; 87040; 87045; 87046; 87324; 87536; 89055; 93005; 93306; 97110; 97116; 97161; 97530; 99285; A9577; G0378; J0744; J1650; J2270; J2405; J7030; J7120; Q9967